=== PATIENT | male | born 1940 | race Caucasian/White ===

== ENCOUNTER 2017-10-27 04:50 | Inpatient (IN) | payer OTHER ==
--- NOTE | 2017-10-27 05:11 | PDOC ---
History of Present Illness - History of Present Illness Initial Comments: 10/27/17 05:10 Mr. Bains is a 77 you male w/ pmh of dementia, GERD, HTN, HLD, afib, hypothyroidism, PH, DMII, known UTI on day 12 of 31 day course of macrobid who presents for evaluation of fever to 102.8 despite tylenol 650 and brown/margaret appearing urine. Patient reportedly at baseline per NH staff however concern for sepsis prompted transfer to ED. <Joaquin Del Real - Last Filed: 10/27/17 07:48> <Graham Ryder - Last Filed: 10/27/17 08:10> - General Stated Complaint: FEVER Time Seen by Provider: 10/27/17 04:52 Past History <Joaquin Del Real - Last Filed: 10/27/17 07:48> <Graham Ryder - Last Filed: 10/27/17 08:10> - Past Medical History Allergies/Adverse Reactions: Allergies Allergy/AdvReac Type Severity Reaction Status Date / Time No Known Allergies Allergy Verified 10/27/17 06:02 Review of Systems - Review of Systems Comments:: 10/27/17 05:16 GENERAL/CONSTITUTIONAL: +Fever x1 day. No weakness. HEAD, EYES, EARS, NOSE AND THROAT: No change in vision. No ear pain or discharge. No sore throat. CARDIOVASCULAR: No chest pain or shortness of breath RESPIRATORY: No cough, wheezing, or hemoptysis. GASTROINTESTINAL: No nausea, vomiting, diarrhea or constipation. GENITOURINARY: +Urinary changes as described. MUSCULOSKELETAL: No joint or muscle swelling or pain. No neck or back pain. SKIN: No rash NEUROLOGIC: No headache, vertigo, loss of consciousness, or change in strength/ sensation. ENDOCRINE: No increased thirst. No abnormal weight change HEMATOLOGIC/LYMPHATIC: No anemia, easy bleeding, or history of blood clots. ALLERGIC/IMMUNOLOGIC: No hives or skin allergy. <Joaquin Del Real - Last Filed: 10/27/17 07:48> *Physical Exam - Physical Exam Comments: 10/27/17 05:19 GENERAL: Awake, alert, and oriented to baseline, in no acute distress HEAD: No signs of trauma, normocephalic, atraumatic EYES: PERRLA, EOMI, sclera anicteric, conjunctiva clear ENT: Auricles normal inspection, hearing grossly normal, nares patent, oropharynx clear without exudates. Moist mucosa NECK: Normal ROM, supple, no lymphadenopathy, JVD, or masses LUNGS: No distress, speaks without difficulty, clear to auscultation bilaterally HEART: +Tachycardic, afib rhythm noted. ABDOMEN: Soft, nontender, normoactive bowel sounds. No guarding, no rebound. No masses EXTREMITIES: Normal inspection, Normal range of motion, no edema. No clubbing or cyanosis. NEUROLOGICAL: +Unable to assess. SKIN: +Hot, Dry, normal turgor, no rashes or lesions noted. : +Brown/red urine appreciated in catheter bag. <Joaquin Del Real - Last Filed: 10/27/17 07:48> - Vital Signs Last Vital Signs Temp Pulse Resp BP Pulse Ox 97.7 F 102 H 18 79/55 99 10/27/17 04:55 10/27/17 08:02 10/27/17 08:02 10/27/17 08:02 10/27/17 08:02 <Graham Ryder - Last Filed: 10/27/17 08:10> Procedures - Central Line Central Line Lumen: triple Central Line Position: internal jugular (R) Anesthesia: 1% Lidocaine Amount of anesthesia (ccs): 2 Complications: none Post Central Line Insertion: sutured, good blood return <Joaquin Del Real - Last Filed: 10/27/17 07:48> ED Treatment Course - LABORATORY CBC & Chemistry Diagram: 10/27/17 06:31 10/27/17 06:31 - RADIOLOGY Radiology Studies Ordered: Category Date Time Status CHEST X-RAY PORTABLE* [RAD] Stat Radiology 10/27/17 04:53 Ordered <Joaquin Del Real - Last Filed: 10/27/17 07:48> - LABORATORY CBC & Chemistry Diagram: 10/27/17 06:31 10/27/17 06:31 - ADDITIONAL ORDERS Additional order review: Laboratory Results 10/27/17 10/27/17 10/27/17 06:43 06:31 06:31 PT with INR 15.40 H INR 1.36 H PTT (Actin FS) 32.6 VBG pH POC VBG pCO2 POC VBG pO2 Mixed VBG HCO3 Sodium Potassium Chloride Carbon Dioxide Anion Gap BUN Creatinine Creat Clearance w eGFR Random Glucose Lactic Acid 7.1 H* Calcium Total Bilirubin AST ALT Alkaline Phosphatase Creatine Kinase Cancelled Creatine Kinase Index CK-MB (CK-2) Troponin I Cancelled Total Protein Albumin 10/27/17 10/27/17 10/27/17 06:31 05:45 05:45 PT with INR INR PTT (Actin FS) VBG pH POC VBG pCO2 POC VBG pO2 Mixed VBG HCO3 Sodium 138 Potassium 4.1 Chloride 100 Carbon Dioxide 25 Anion Gap 13 BUN 21 H Creatinine 1.7 H Creat Clearance w eGFR 39.38 Random Glucose 163 H Lactic Acid Cancelled Calcium 8.5 Total Bilirubin 0.7 AST 54 H ALT 33 Alkaline Phosphatase 86 Creatine Kinase 157 Creatine Kinase Index 1.0 CK-MB (CK-2) 1.62 Troponin I 0.12 H Cancelled Total Protein 6.0 L Albumin 2.9 L 10/27/17 10/27/17 10/27/17 05:45 05:45 05:45 PT with INR Cancelled INR Cancelled PTT (Actin FS) Cancelled VBG pH 7.40 POC VBG pCO2 40.4 POC VBG pO2 36.5 Mixed VBG HCO3 24.3 Sodium Cancelled Potassium Cancelled Chloride Cancelled Carbon Dioxide Cancelled Anion Gap Cancelled BUN Cancelled Creatinine Cancelled Creat Clearance w eGFR Cancelled Random Glucose Cancelled Lactic Acid Calcium Cancelled Total Bilirubin Cancelled AST Cancelled ALT Cancelled Alkaline Phosphatase Cancelled Creatine Kinase Creatine Kinase Index CK-MB (CK-2) Troponin I Total Protein Cancelled Albumin Cancelled 10/27/17 10/27/17 06:31 05:45 RBC 3.78 L Cancelled MCV 95.8 Cancelled MCHC 33.7 Cancelled RDW 13.7 Cancelled MPV 8.3 Cancelled Neutrophils % No Result Required. Cancelled Lymphocytes % No Result Required. Cancelled Monocytes % Cancelled Eosinophils % Cancelled Basophils % Cancelled - RADIOLOGY Radiology Studies Ordered: Category Date Time Status ABDOMEN & PELVIS CT W/O CONTR [CT] Stat CT Scan 10/27/17 07:57 Ordered - Medications Given in the ED: ED Medications Discontinued Medications Generic Name Dose Route Start Last Admin Trade Name Freq PRN Reason Stop Dose Admin Acetaminophen 1,000 mg 10/27/17 06:50 10/27/17 07:18 Ofirmev Injection - IVPB 10/27/17 06:51 1,000 mg ONCE ONE Administration Vancomycin HCl 1,000 mg/ 250 mls @ 166.667 mls/hr 10/27/17 05:51 10/27/17 06: 15 Dextrose IVPB 10/27/17 07:20 166.667 mls/hr ONCE ONE Administration Protocol Piperacillin Sod/Tazobactam 50 mls @ 100 mls/hr 10/27/17 05:51 10/27/17 06:00 Sod 3.375 gm/ Dextrose IVPB 10/27/17 06:20 100 mls/hr ONCE ONE Administration Protocol Sodium Chloride 1,000 mls @ 1,000 mls/hr 10/27/17 05:52 10/27/17 06:00 Normal Saline - IV 10/27/17 06:51 1,000 mls/hr ASDIR STA Administration Sodium Chloride 1,000 mls @ 1,000 mls/hr 10/27/17 06:25 10/27/17 07:16 Normal Saline - IV 10/27/17 07:24 1,000 mls/hr ASDIR STA Administration <Graham Ryder - Last Filed: 10/27/17 08:10> Medical Decision Making - Medical Decision Making 10/27/17 05:20 Mr. Bains is a 77 yo male w/ pmh as described who presents for evaluation of r/ o sepsis. Sepsis workup started and will dispo accordingly. 10/27/17 06:45 Patient noted to be severely w/ MAP of 61. 2L NS added to workup with vanc/ zosyn given empirically. Patient first set of labs hemolized - redrawn. 10/27/17 07:48 Patient noted to be again hypotensive to MAPs of 61. Central line placed for pressure support. Patient signed out to Dr. Ryder for further care. <Joaquin Del Real - Last Filed: 10/27/17 07:48> *DC/Admit/Observation/Transfer - Discharge Dispostion Decision to Admit order: Yes <Joaquin Del Real - Last Filed: 10/27/17 07:48> - Discharge Dispostion Decision to Admit order: Yes <Graham Ryder - Last Filed: 10/27/17 08:10> Diagnosis at time of Disposition: Septic shock Sepsis Qualifiers: Sepsis type: sepsis due to unspecified organism Qualified Code(s): A41.9 - Sepsis, unspecified organism Hematuria Qualifiers: Hematuria type: gross Qualified Code(s): R31.0 - Gross hematuria - Discharge Dispostion Condition at time of disposition: Critical - Referrals Referrals: Tessa Almanza MD [Primary Care Provider] -
--- NOTE | 2017-10-27 05:17 | PDOC ---
Attending Attestation - HPI HPI: 10/27/17 05:23 The patient is a 77 year old male, with a significant past medical history of dementia, GERD, HTN, HLD, Afib, hypothyroidism, Type II DM, who presents to the emergency department via EMS from [facility] on [address] with, fever. As per halfway, the patient is on day 12 of Macrobid for a UTI. They report a Tmax 102.8 degrees Fahrenheit. They report associated brownish/margaret urine. - Physicial Exam PE: 10/27/17 06:32 GENERAL: Awake, alert, and oriented to baseline, in no acute distress HEAD: No signs of trauma, normocephalic, atraumatic EYES: PERRLA, EOMI, sclera anicteric, conjunctiva clear ENT: Auricles normal inspection, hearing grossly normal, nares patent, oropharynx clear without exudates. Moist mucosa NECK: Normal ROM, supple, no lymphadenopathy, JVD, or masses LUNGS: No distress, speaks without difficulty, clear to auscultation bilaterally HEART: +Tachycardic, afib rhythm noted. ABDOMEN: Soft, nontender, normoactive bowel sounds. No guarding, no rebound. No masses EXTREMITIES: Normal inspection, Normal range of motion, no edema. No clubbing or cyanosis. NEUROLOGICAL: +Unable to assess. SKIN: +Hot, Dry, normal turgor, no rashes or lesions noted. : +Brown/red urine appreciated in catheter bag. <Edward Griffin - Last Filed: 10/27/17 06:51> - Resident Resident Name: Joaquin Del Real - ED Attending Attestation I have performed the following: I have examined & evaluated the patient, The case was reviewed & discussed with the resident, I agree w/resident's findings & plan, Exceptions are as noted - Medical Decision Making 10/27/17 19:40 Pt was admitted for further evaluation and care. <Nitin Guajardo - Last Filed: 10/27/17 19:41> Attestations - Attestations 10/27/17 05:23 Documentation prepared by Edward Griffin, acting as chief medical director for Nitin Guajardo DO. <Edward Griffin - Last Filed: 10/27/17 06:51>
[2017-10-27] MEDS ORDERED: VANCOMYCIN 1,000 MG in DEXTROSE 5%-WATER - 250 ML IVPB ONE (05:51)
[2017-10-27] MEDS ORDERED: PIPERACILLIN/TAZOB 3.375 GM 3.375 GM in DEXTROSE 5%-WATER - 50 ML IVPB ONE (05:51)
[2017-10-27] MEDS ORDERED: SODIUM CHLORIDE 1,000 ML IV STA ×3 (05:52→08:30)
[2017-10-27] MEDS ORDERED: VANCOMYCIN 1 GRAM (PRE-DOCKED) 1,000 MG/250 ML BAG IVPB ONE (06:03)
[2017-10-27] MEDS ORDERED: PIPERACILLIN/TAZOB 3.375 GM 3.375 GM/50 ML BAG IVPB ONE (06:03)
[2017-10-27 06:11] LABS: VENOUS PC02 40.4 mmHg (38-52); VENOUS PH 7.4 (7.32-7.42); VENOUS PO2 36.5 mmHg (28-48)
[2017-10-27 06:40] LABS: HEMATOCRIT 36.2 % (35.4-49); HEMOGLOBIN 12.2 GM/dL (11.7-16.9); MCH 32.3 pg (25.7-33.7); MCHC 33.7 g/dl (32.0-35.9); MEAN CELL VOLUME 95.8 fl (80-96); MEAN PLT VOLUME 8.3 fl (7.5-11.1); PLATELET COUNT 185 K/MM3 (134-434); RBC 3.78 M/mm3 (4.00-5.60); RDW 13.7 % (11.9-15.9); WHITE BLOOD COUNT 10.7 K/mm3 (4.0-10.0)
[2017-10-27] MEDS ORDERED: ACETAMINOPHEN 1000 MG/100 ML VIAL (NON FORMULARY) IVPB ONE (06:50)
[2017-10-27 07:06] LABS: ALBUMIN 2.9 g/dl (3.4-5.0); ANION GAP 13 MMOL/L (8-16); BLOOD UREA NITROGEN 21 mg/dL (7-18); CALCIUM 8.5 mg/dL (8.5-10.1); CHLORIDE 100 mmol/L (98-107); CO2 25 mmol/L (21-32); SODIUM 138 mmol/L (136-145)
[2017-10-27 07:13] LABS: INR 1.36 (0.83-1.09); PROTHROMBIN TIME (PATIENT) 15.4 SEC (9.7-13.0)
[2017-10-27 07:14] LABS: ALK PHOS 86 U/L (45-117); BILIRUBIN,TOTAL 0.7 mg/dL (0.2-1.0); CREATININE 1.7 mg/dL (0.7-1.3); GLUCOSE,RANDOM 163 mg/dL (74-106); POTASSIUM 4.1 mmol/L (3.5-5.1); SGPT/ALT 33 U/L (12-78)
[2017-10-27 07:15] LABS: ACTIVATED PTT 32.6 SECONDS (25.2-36.5)
[2017-10-27 07:16] LABS: SGOT/AST 54 U/L (15-37)
[2017-10-27] MEDS ORDERED: ACETAMINOPHEN INJECTION 100 ML IVPB ONE (07:16)
--- NOTE | 2017-10-27 07:19 | PDOC ---
*Physical Exam - Vital Signs Last Vital Signs Temp Pulse Resp BP Pulse Ox 97.7 F 58 L 20 102/54 95 10/27/17 04:55 10/27/17 04:55 10/27/17 04:55 10/27/17 04:55 10/27/17 04:55 - Physical Exam Comments: 10/27/17 07:19 Patient hypotensive with blood pressure of 73 systolic despite aggressive fluid resuscitation. We'll continue with IV fluids. Will place right IJ central line for pressor infusion. Will initiate Levophed. Will admit to the ICU. 10/27/17 07:58 Case discussed with ICU resident, Dr. East. Patient accepted for admission. Given hypotension, gross hematuria and elevated lactic acid, will obtain noncontrast CT of abdomen to rule out renal infarction. Patient will not be able to tolerate by mouth contrast due to lethargy and decreased mentation. 10/27/17 08:08 Chest x-ray reviewed. Tip of the the right IJ catheter is at the junction of SVC in the right atrium. No evidence of pneumothorax. RN instructed to use the ER central line catheter for infusion of Levophed. 10/27/17 08:29 Third liter of normal saline administered. No significant urinary output detected. Levophed drip initiated. We'll continue with IV fluid resuscitation. <Graham Ryder - Last Filed: 10/27/17 08:29> - Vital Signs Last Vital Signs Temp Pulse Resp BP Pulse Ox 97.7 F 112 H 17 72/35 96 10/27/17 04:55 10/27/17 06:30 10/27/17 06:30 10/27/17 06:30 10/27/17 07:20 <Daniela Lee - Last Filed: 10/27/17 10:07> ED Treatment Course - LABORATORY CBC & Chemistry Diagram: 10/27/17 06:31 10/27/17 06:31 - ADDITIONAL ORDERS Additional order review: Laboratory Results 10/27/17 10/27/17 10/27/17 06:31 06:31 05:45 PT with INR INR PTT (Actin FS) VBG pH POC VBG pCO2 POC VBG pO2 Mixed VBG HCO3 Sodium 138 Potassium 4.1 Chloride 100 Carbon Dioxide 25 Anion Gap 13 BUN 21 H Creatinine 1.7 H Creat Clearance w eGFR 39.38 Random Glucose 163 H Lactic Acid Calcium 8.5 Total Bilirubin 0.7 AST 54 H ALT 33 Alkaline Phosphatase 86 Creatine Kinase Cancelled Troponin I Cancelled 0.12 H Cancelled Total Protein 6.0 L Albumin 2.9 L 10/27/17 10/27/17 10/27/17 05:45 05:45 05:45 PT with INR INR PTT (Actin FS) VBG pH 7.40 POC VBG pCO2 40.4 POC VBG pO2 36.5 Mixed VBG HCO3 24.3 Sodium Cancelled Potassium Cancelled Chloride Cancelled Carbon Dioxide Cancelled Anion Gap Cancelled BUN Cancelled Creatinine Cancelled Creat Clearance w eGFR Cancelled Random Glucose Cancelled Lactic Acid Cancelled Calcium Cancelled Total Bilirubin Cancelled AST Cancelled ALT Cancelled Alkaline Phosphatase Cancelled Creatine Kinase Troponin I Total Protein Cancelled Albumin Cancelled 10/27/17 05:45 PT with INR Cancelled INR Cancelled PTT (Actin FS) Cancelled VBG pH POC VBG pCO2 POC VBG pO2 Mixed VBG HCO3 Sodium Potassium Chloride Carbon Dioxide Anion Gap BUN Creatinine Creat Clearance w eGFR Random Glucose Lactic Acid Calcium Total Bilirubin AST ALT Alkaline Phosphatase Creatine Kinase Troponin I Total Protein Albumin 10/27/17 10/27/17 06:31 05:45 RBC 3.78 L Cancelled MCV 95.8 Cancelled MCHC 33.7 Cancelled RDW 13.7 Cancelled MPV 8.3 Cancelled Neutrophils % No Result Required. Cancelled Lymphocytes % No Result Required. Cancelled Monocytes % Cancelled Eosinophils % Cancelled Basophils % Cancelled - Medications Given in the ED: ED Medications Discontinued Medications Generic Name Dose Route Start Last Admin Trade Name Freq PRN Reason Stop Dose Admin Acetaminophen 1,000 mg 10/27/17 06:50 10/27/17 07:18 Ofirmev Injection - IVPB 10/27/17 06:51 1,000 mg ONCE ONE Administration Piperacillin Sod/Tazobactam 50 mls @ 100 mls/hr 10/27/17 05:51 10/27/17 06:00 Sod 3.375 gm/ Dextrose IVPB 10/27/17 06:20 100 mls/hr ONCE ONE Administration Protocol Sodium Chloride 1,000 mls @ 1,000 mls/hr 10/27/17 05:52 10/27/17 06:00 Normal Saline - IV 10/27/17 06:51 1,000 mls/hr ASDIR STA Administration <Britni,Graham - Last Filed: 10/27/17 08:29> - LABORATORY CBC & Chemistry Diagram: 10/27/17 06:31 10/27/17 06:31 - ADDITIONAL ORDERS Additional order review: Laboratory Results 10/27/17 10/27/17 10/27/17 06:31 06:31 06:31 PT with INR 15.40 H INR 1.36 H PTT (Actin FS) 32.6 VBG pH POC VBG pCO2 POC VBG pO2 Mixed VBG HCO3 Sodium 138 Potassium 4.1 Chloride 100 Carbon Dioxide 25 Anion Gap 13 BUN 21 H Creatinine 1.7 H Creat Clearance w eGFR 39.38 Random Glucose 163 H Lactic Acid Calcium 8.5 Total Bilirubin 0.7 AST 54 H ALT 33 Alkaline Phosphatase 86 Creatine Kinase Cancelled Troponin I Cancelled 0.12 H Total Protein 6.0 L Albumin 2.9 L 10/27/17 10/27/17 10/27/17 05:45 05:45 05:45 PT with INR INR PTT (Actin FS) VBG pH POC VBG pCO2 POC VBG pO2 Mixed VBG HCO3 Sodium Cancelled Potassium Cancelled Chloride Cancelled Carbon Dioxide Cancelled Anion Gap Cancelled BUN Cancelled Creatinine Cancelled Creat Clearance w eGFR Cancelled Random Glucose Cancelled Lactic Acid Cancelled Calcium Cancelled Total Bilirubin Cancelled AST Cancelled ALT Cancelled Alkaline Phosphatase Cancelled Creatine Kinase Troponin I Cancelled Total Protein Cancelled Albumin Cancelled 10/27/17 10/27/17 05:45 05:45 PT with INR Cancelled INR Cancelled PTT (Actin FS) Cancelled VBG pH 7.40 POC VBG pCO2 40.4 POC VBG pO2 36.5 Mixed VBG HCO3 24.3 Sodium Potassium Chloride Carbon Dioxide Anion Gap BUN Creatinine Creat Clearance w eGFR Random Glucose Lactic Acid Calcium Total Bilirubin AST ALT Alkaline Phosphatase Creatine Kinase Troponin I Total Protein Albumin 10/27/17 10/27/17 06:31 05:45 RBC 3.78 L Cancelled MCV 95.8 Cancelled MCHC 33.7 Cancelled RDW 13.7 Cancelled MPV 8.3 Cancelled Neutrophils % No Result Required. Cancelled Lymphocytes % No Result Required. Cancelled Monocytes % Cancelled Eosinophils % Cancelled Basophils % Cancelled - Medications Given in the ED: ED Medications Discontinued Medications Generic Name Dose Route Start Last Admin Trade Name Freq PRN Reason Stop Dose Admin Acetaminophen 1,000 mg 10/27/17 06:50 10/27/17 07:18 Ofirmev Injection - IVPB 10/27/17 06:51 1,000 mg ONCE ONE Administration Vancomycin HCl 1,000 mg/ 250 mls @ 166.667 mls/hr 10/27/17 05:51 10/27/17 06: 15 Dextrose IVPB 10/27/17 07:20 166.667 mls/hr ONCE ONE Administration Protocol Piperacillin Sod/Tazobactam 50 mls @ 100 mls/hr 10/27/17 05:51 10/27/17 06:00 Sod 3.375 gm/ Dextrose IVPB 10/27/17 06:20 100 mls/hr ONCE ONE Administration Protocol Sodium Chloride 1,000 mls @ 1,000 mls/hr 10/27/17 05:52 10/27/17 06:00 Normal Saline - IV 10/27/17 06:51 1,000 mls/hr ASDIR STA Administration Sodium Chloride 1,000 mls @ 1,000 mls/hr 10/27/17 06:25 10/27/17 07:16 Normal Saline - IV 10/27/17 07:24 1,000 mls/hr ASDIR STA Administration <Daniela Lee - Last Filed: 10/27/17 10:07> Medical Decision Making - Medical Decision Making 10/27/17 07:40 Dr. Almanza was paged and notified via phone service. Second call was placed at 07 :59. Third page was placed at 08:29. Hospitalist was messaged at 8:49 for admission. Admitting advised us that they will try to reach out to Dr. Almanza themselves. We were informed at 9:[address] Peña admits for Dr. Almanza. 10/27/17 09:14 Dr. Peña was paged and notified via phone service. 10/27/17 09:20 Dr. Almanza returned our call and states that the patient should be admitted under the Hospitalist service since the patient is a Resident service patient and not an office patient. 10/27/17 10:06 Abdomen/Pelvis CT was reviewed by Dr. Ryder and over-read by Radiology. Impression: There are atelectatic changes at both lung bases with trace pleural effusions. The heart size is enlarged. There is a 1 cm calcification within the the upper pole of the right kidney consistent with a nonobstructing calculus. There is no evidence of hydronephrosis or obstructive uropathy. There is a left renal cyst measuring 4.7 x 4.6 x 3.8 cm. No solid renal masses could be identified on this limited noncontrast examination. The urinary bladder is moderately thickened. There are calcifications within the bladder suspicious for bladder calculi. Air is noted within the bladder which may be related to recent instrumentation. There is a Chavez catheter present, however, its distal tip is within the prostatic urethra. Clinical correlation as to repositioning of the catheter is now recommended. The liver, spleen, pancreas and adrenal glands demonstrate no gross abnormalities on this limited noncontrast examination. There is no definite evidence of intra- abdominal or retroperitoneal lymphadenopathy or fluid collections. There is no evidence of pneumoperitoneum, bowel obstruction or intra-abdominal abscess. There is no CT evidence of acute appendicitis or diverticulitis. Examination of the pelvis demonstrates no evidence of pelvic masses, fluid collections or lymphadenopathy. There is a large amount of retained fecal material within the rectum consistent with fecal impaction. Air is identified within the right common femoral vein. Has the patient undergone any attempts at cannulation of the femoral vein? Clinical correlation is recommended. There is no evidence of acute bony abnormalities. Extensive degenerative arthritic changes of the lumbosacral spine are identified. IMPRESSION: 1. Right nephrolithiasis with no evidence of hydronephrosis or obstructive uropathy. 2. Thick-walled urinary bladder containing calculi. Air is also noted within the bladder that may be the result of recent instrumentation. 3. Chavez catheter within prostatic urethra. Repositioning recommended. 4. Air within the right common femoral vein of uncertain etiology. 5. Fecal impaction. <Daniela Lee - Last Filed: 10/27/17 10:07> *DC/Admit/Observation/Transfer <Graham Ryder - Last Filed: 10/27/17 08:29> <Daniela Lee - Last Filed: 10/27/17 10:07> Diagnosis at time of Disposition: Septic shock Sepsis Qualifiers: Sepsis type: sepsis due to unspecified organism Qualified Code(s): A41.9 - Sepsis, unspecified organism Hematuria Qualifiers: Hematuria type: gross Qualified Code(s): R31.0 - Gross hematuria - Discharge Dispostion Condition at time of disposition: Critical
[2017-10-27] MEDS: NOREPINEPHRINE BITARTRATE 8,000 MCG in DEXTROSE 5%-WATER - 492 ML IV SCH ×2 (08:15→22:00)
[2017-10-27 08:44] LABS: URINE APPEARANCE SLCLOUDY; URINE BILIRUBIN NEGATIVE (<2.0 mg/dL); URINE COLOR RED; URINE GLUCOSE (UA) NEGATIVE (NEGATIVE); URINE KETONE NEGATIVE (NEGATIVE); URINE LEUK ESTERASE NEGATIVE (NEGATIVE); URINE NITRITE NEGATIVE (NEGATIVE); URINE UROBILINOGEN NEGATIVE mg/dL (0.2-1.0)
[2017-10-27] MEDS: SODIUM CHLORIDE 1,000 ML IV SCH (08:44)
[2017-10-27 09:02] LABS: URINE PROTEIN 2+ (NEGATIVE)
[2017-10-27 09:03] LABS: YEAST RARE
--- NOTE | 2017-10-27 09:19 | HP ---
CHIEF COMPLAINT: PCP: HISTORY OF PRESENT ILLNESS: ER course was notable for: (1)Fluids Labs (2)Central Line (3)ABx Recent Travel: PAST MEDICAL HISTORY: PAST SURGICAL HISTORY: Social History: Smoking: Alcohol: Drugs: Family History: Allergies No Known Allergies Allergy (Verified 10/27/17 06:02) HOME MEDICATIONS: Home Medications Medication Instructions Recorded Atenolol [Tenormin -] 100 mg PO DAILY 10/27/17 Digoxin [Lanoxin -] 0.125 mg PO DAILY 10/27/17 Docusate Sodium [Colace] 300 mg PO HS 10/27/17 Hydrochlorothiazide 12.5 mg PO DAILY 10/27/17 Levothyroxine [Synthroid -] 175 mcg PO DAILY 10/27/17 Metformin HCl [Glucophage] 500 mg PO BID 10/27/17 Nitrofurantoin Macrocrystal 100 mg PO DAILY 10/27/17 [Nitrofurantoin] Nystatin Cream [Mycostatin Cream -] 1 applic TP BID 10/27/17 Ranitidine [Zantac -] 150 mg PO DAILY 10/27/17 Sennosides [Senna] 2 tab PO DAILY 10/27/17 Simvastatin 10 mg PO HS 10/27/17 Tamsulosin HCl [Flomax] 0.4 mg PO DAILY 10/27/17 REVIEW OF SYSTEMS CONSTITUTIONAL: Absent: fever, chills, diaphoresis, generalized weakness, malaise, loss of appetite, weight change HEENT: Absent: rhinorrhea, nasal congestion, throat pain, throat swelling, difficulty swallowing, mouth swelling, ear pain, eye pain, visual changes CARDIOVASCULAR: Absent: chest pain, syncope, palpitations, irregular heart rate, lightheadedness , peripheral edema RESPIRATORY: Absent: cough, shortness of breath, dyspnea with exertion, orthopnea, wheezing, stridor, hemoptysis GASTROINTESTINAL: Absent: abdominal pain, abdominal distension, nausea, vomiting, diarrhea, constipation, melena, hematochezia GENITOURINARY: Absent: dysuria, frequency, urgency, hesitancy, hematuria, flank pain, genital pain MUSCULOSKELETAL: Absent: myalgia, arthralgia, joint swelling, back pain, neck pain SKIN: Absent: rash, itching, pallor HEMATOLOGIC/IMMUNOLOGIC: Absent: easy bleeding, easy bruising, lymphadenopathy, frequent infections ENDOCRINE: Absent: unexplained weight gain, unexplained weight loss, heat intolerance, cold intolerance NEUROLOGIC: Absent: headache, focal weakness or paresthesias, dizziness, unsteady gait, seizure, mental status changes, bladder or bowel incontinence PSYCHIATRIC: Absent: anxiety, depression, suicidal or homicidal ideation, hallucinations. PHYSICAL EXAMINATION Vital Signs - 24 hr 10/27/17 10/27/17 10/27/17 04:55 06:30 07:20 Temperature 97.7 F Pulse Rate 58 L Pulse Rate [ 112 H Left Radial] Respiratory 20 17 Rate Blood Pressure 102/54 Blood Pressure 72/35 [Right Arm] O2 Sat by Pulse 95 94 L 96 Oximetry (%) 10/27/17 10/27/17 10/27/17 08:02 08:15 08:36 Temperature 101 F H Pulse Rate 89 Pulse Rate [ 102 H 96 H Left Radial] Respiratory 18 19 Rate Blood Pressure 75/55 Blood Pressure 79/55 85/53 [Right Arm] O2 Sat by Pulse 99 98 Oximetry (%) GENERAL: Awake, alert, and fully oriented, in no acute distress. HEAD: Normal with no signs of trauma. EYES: Pupils equal, round and reactive to light, extraocular movements intact, sclera anicteric, conjunctiva clear. No lid lag. EARS, NOSE, THROAT: Ears normal, nares patent, oropharynx clear without exudates. Moist mucous membranes. NECK: Normal range of motion, supple without lymphadenopathy, JVD, or masses. LUNGS: Breath sounds equal, clear to auscultation bilaterally. No wheezes, and no crackles. No accessory muscle use. HEART: Regular rate and rhythm, normal S1 and S2 without murmur, rub or gallop. ABDOMEN: Soft, nontender, not distended, normoactive bowel sounds, no guarding, no rebound, no masses. No hepatomegaly or splenomegaly. MUSCULOSKELETAL: Normal range of motion at all joints. No bony deformities or tenderness. No CVA tenderness. UPPER EXTREMITIES: 2+ pulses, warm, well-perfused. No cyanosis. No clubbing. No peripheral edema. LOWER EXTREMITIES: 2+ pulses, warm, well-perfused. No calf tenderness. No peripheral edema. NEUROLOGICAL: Cranial nerves II-XII intact. Normal speech. Normal gait. PSYCHIATRIC: Cooperative. Good eye contact. Appropriate mood and affect. SKIN: Warm, dry, normal turgor, no rashes or lesions noted, normal capillary refill. Laboratory Results - last 24 hr 10/27/17 10/27/17 10/27/17 05:45 05:45 05:45 WBC Cancelled Corrected WBC (auto) Cancelled RBC Cancelled Hgb Cancelled Hct Cancelled MCV Cancelled MCH Cancelled MCHC Cancelled RDW Cancelled Plt Count Cancelled MPV Cancelled Absolute Neuts (auto) Cancelled Neutrophils % Cancelled Lymphocytes % Cancelled Monocytes % Cancelled Eosinophils % Cancelled Basophils % Cancelled Nucleated RBC % Cancelled Platelet Estimate Cancelled Platelet Comment Cancelled PT with INR Cancelled INR Cancelled PTT (Actin FS) Cancelled VBG pH 7.40 POC VBG pCO2 40.4 POC VBG pO2 36.5 Mixed VBG HCO3 24.3 Sodium Potassium Chloride Carbon Dioxide Anion Gap BUN Creatinine Creat Clearance w eGFR Random Glucose Lactic Acid Calcium Total Bilirubin AST ALT Alkaline Phosphatase Creatine Kinase Creatine Kinase Index CK-MB (CK-2) Troponin I Total Protein Albumin Urine Color Urine Appearance Urine pH Ur Specific [place] Urine Protein Urine Glucose (UA) Urine Ketones Urine Blood Urine Nitrite Urine Bilirubin Urine Urobilinogen Ur Leukocyte Esterase Urine WBC (Auto) Urine RBC (Auto) Urine Yeast 10/27/17 10/27/17 10/27/17 05:45 05:45 05:45 WBC Corrected WBC (auto) RBC Hgb Hct MCV MCH MCHC RDW Plt Count MPV Absolute Neuts (auto) Neutrophils % Lymphocytes % Monocytes % Eosinophils % Basophils % Nucleated RBC % Platelet Estimate Platelet Comment PT with INR INR PTT (Actin FS) VBG pH POC VBG pCO2 POC VBG pO2 Mixed VBG HCO3 Sodium Cancelled Potassium Cancelled Chloride Cancelled Carbon Dioxide Cancelled Anion Gap Cancelled BUN Cancelled Creatinine Cancelled Creat Clearance w eGFR Cancelled Random Glucose Cancelled Lactic Acid Cancelled Calcium Cancelled Total Bilirubin Cancelled AST Cancelled ALT Cancelled Alkaline Phosphatase Cancelled Creatine Kinase Creatine Kinase Index CK-MB (CK-2) Troponin I Cancelled Total Protein Cancelled Albumin Cancelled Urine Color Urine Appearance Urine pH Ur Specific [place] Urine Protein Urine Glucose (UA) Urine Ketones Urine Blood Urine Nitrite Urine Bilirubin Urine Urobilinogen Ur Leukocyte Esterase Urine WBC (Auto) Urine RBC (Auto) Urine Yeast 10/27/17 10/27/17 10/27/17 06:31 06:31 06:31 WBC 10.7 H Corrected WBC (auto) RBC 3.78 L Hgb 12.2 Hct 36.2 MCV 95.8 MCH 32.3 MCHC 33.7 RDW 13.7 Plt Count 185 MPV 8.3 Absolute Neuts (auto) 10.3 H Neutrophils % No Result Required. Lymphocytes % No Result Required. Monocytes % Eosinophils % Basophils % Nucleated RBC % 0 Platelet Estimate Platelet Comment PT with INR 15.40 H INR 1.36 H PTT (Actin FS) 32.6 VBG pH POC VBG pCO2 POC VBG pO2 Mixed VBG HCO3 Sodium 138 Potassium 4.1 Chloride 100 Carbon Dioxide 25 Anion Gap 13 BUN 21 H Creatinine 1.7 H Creat Clearance w eGFR 39.38 Random Glucose 163 H Lactic Acid Calcium 8.5 Total Bilirubin 0.7 AST 54 H ALT 33 Alkaline Phosphatase 86 Creatine Kinase 157 Creatine Kinase Index 1.0 CK-MB (CK-2) 1.62 Troponin I 0.12 H Total Protein 6.0 L Albumin 2.9 L Urine Color Urine Appearance Urine pH Ur Specific [place] Urine Protein Urine Glucose (UA) Urine Ketones Urine Blood Urine Nitrite Urine Bilirubin Urine Urobilinogen Ur Leukocyte Esterase Urine WBC (Auto) Urine RBC (Auto) Urine Yeast 10/27/17 10/27/17 10/27/17 06:31 06:43 07:59 WBC Corrected WBC (auto) RBC Hgb Hct MCV MCH MCHC RDW Plt Count MPV Absolute Neuts (auto) Neutrophils % Lymphocytes % Monocytes % Eosinophils % Basophils % Nucleated RBC % Platelet Estimate Platelet Comment PT with INR INR PTT (Actin FS) VBG pH POC VBG pCO2 POC VBG pO2 Mixed VBG HCO3 Sodium Potassium Chloride Carbon Dioxide Anion Gap BUN Creatinine Creat Clearance w eGFR Random Glucose Lactic Acid 7.1 H* Calcium Total Bilirubin AST ALT Alkaline Phosphatase Creatine Kinase Cancelled Creatine Kinase Index CK-MB (CK-2) Troponin I Cancelled Total Protein Albumin Urine Color Red Urine Appearance Slcloudy Urine pH 8.0 Ur Specific [place] 1.017 Urine Protein 2+ H Urine Glucose (UA) Negative Urine Ketones Negative Urine Blood 3+ H Urine Nitrite Negative Urine Bilirubin Negative Urine Urobilinogen Negative Ur Leukocyte Esterase Negative Urine WBC (Auto) None Urine RBC (Auto) 2043 Urine Yeast Rare 10/27/17 08:12 WBC Corrected WBC (auto) RBC Hgb Hct MCV MCH MCHC RDW Plt Count MPV Absolute Neuts (auto) Neutrophils % Lymphocytes % Monocytes % Eosinophils % Basophils % Nucleated RBC % Platelet Estimate Platelet Comment PT with INR INR PTT (Actin FS) VBG pH POC VBG pCO2 POC VBG pO2 Mixed VBG HCO3 Sodium Potassium Chloride Carbon Dioxide Anion Gap BUN Creatinine Creat Clearance w eGFR Random Glucose Lactic Acid 5.6 H* Calcium Total Bilirubin AST ALT Alkaline Phosphatase Creatine Kinase Creatine Kinase Index CK-MB (CK-2) Troponin I Total Protein Albumin Urine Color Urine Appearance Urine pH Ur Specific [place] Urine Protein Urine Glucose (UA) Urine Ketones Urine Blood Urine Nitrite Urine Bilirubin Urine Urobilinogen Ur Leukocyte Esterase Urine WBC (Auto) Urine RBC (Auto) Urine Yeast ASSESSMENT/PLAN: Hospitalist Screening - Colonoscopy Questionnaire Colonoscopy Questionnaire: Colonoscopy Questionnaire
[2017-10-27] MEDS ORDERED: VASOPRESSIN 20 UNITS/ML VIAL IV ONE ×2 (09:44→20:02)
[2017-10-27] MEDS ORDERED: LEVOTHYROXINE SODIUM 100 MCG VIAL IVPUSH ONE (10:00)
[2017-10-27] MEDS: PANTOPRAZOLE SODIUM 40 MG VIAL IVPUSH SCH (10:00)
[2017-10-27] MEDS: VASOPRESSIN 50 UNITS in SODIUM CHLORIDE 97.5 ML IVPB SCH (10:00)
[2017-10-27] MEDS ORDERED: LEVOTHYROXINE NA 175 MCG TABLET PO SCH (10:00)
[2017-10-27] MEDS: MUPIROCIN 2% TOPICAL OINTMENT FOR DECOLONIZATION NS SCH ×2 (10:00→21:35)
--- NOTE | 2017-10-27 10:24 | HP ---
CHIEF COMPLAINT: Fever and Hypotension reported by [facility] staff PCP: Dr. 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 According to [facility] staff he is on day 02/28 of Macrobid for frequent UTI's. In the ED patient was found to have gross hematuria from the sarah. Patient is poor historian and most information obtained from [facility] records. ER course was notable for: (1) Septic shock with hypotension, fever, tachycardia (2) Vancomycin and Zosyn (3) Recent Travel: PAST MEDICAL HISTORY: As per HPI PAST SURGICAL HISTORY: Unable to obtain Social History: Unable to obtain Family History: Unable to obtain Allergies: No Known Allergies Allergy (Verified 10/27/17 06:02) HOME MEDICATIONS: Home Medications Medication Instructions Recorded Atenolol [Tenormin -] 100 mg PO DAILY 10/27/17 Digoxin [Lanoxin -] 0.125 mg PO DAILY 10/27/17 Docusate Sodium [Colace] 300 mg PO HS 10/27/17 Hydrochlorothiazide 12.5 mg PO DAILY 10/27/17 Levothyroxine [Synthroid -] 175 mcg PO DAILY 10/27/17 Metformin HCl [Glucophage] 500 mg PO BID 10/27/17 Nitrofurantoin Macrocrystal 100 mg PO DAILY 10/27/17 [Nitrofurantoin] Nystatin Cream [Mycostatin Cream -] 1 applic TP BID 10/27/17 Ranitidine [Zantac -] 150 mg PO DAILY 10/27/17 Sennosides [Senna] 2 tab PO DAILY 10/27/17 Simvastatin 10 mg PO HS 10/27/17 Tamsulosin HCl [Flomax] 0.4 mg PO DAILY 10/27/17 REVIEW OF SYSTEMS Unable to obtain PHYSICAL EXAMINATION Vital Signs - 24 hr 10/27/17 10/27/17 10/27/17 04:55 06:30 07:20 Temperature 97.7 F Pulse Rate 58 L Pulse Rate [ 112 H Left Radial] Respiratory 20 17 Rate Blood Pressure 102/54 Blood Pressure 72/35 [Right Arm] O2 Sat by Pulse 95 94 L 96 Oximetry (%) 10/27/17 10/27/17 10/27/17 08:02 08:15 08:36 Temperature 101 F H Pulse Rate 89 Pulse Rate [ 102 H 96 H Left Radial] Respiratory 18 19 Rate Blood Pressure 75/55 Blood Pressure 79/55 85/53 [Right Arm] O2 Sat by Pulse 99 98 Oximetry (%) GENERAL: Drowsy, lethargic, Pale, in moderate distress HEAD: Normal with no signs of trauma. EYES: Pupils equal, round and reactive to light, sclera anicteric, conjunctiva clear. No lid lag. EARS, NOSE, THROAT: Unable to assess due to medical condition NECK: Normal range of motion, supple without lymphadenopathy, JVD, or masses. LUNGS: Decreased breath sounds. No accessory muscle use. HEART: Tachycardic with irregularly irregular rhythm. ABDOMEN: Soft, nontender, not distended, normoactive bowel sounds, no guarding, no rebound, no masses. UPPER EXTREMITIES: No peripheral edema. LOWER EXTREMITIES: No peripheral edema. NEUROLOGICAL: unable to assess due to patients medical condition Laboratory Results - last 24 hr CBC, BMP 10/27/17 06:31 10/27/17 06:31 Laboratory Tests 10/27/17 10/27/17 10/27/17 05:45 06:31 06:31 INR 1.36 H PTT (Actin FS) 32.6 Lactic Acid Troponin I 0.12 H Albumin 2.9 L Urine Color Urine Blood Urine Nitrite Ur Leukocyte Esterase Urine WBC (Auto) Urine RBC (Auto) 10/27/17 10/27/17 07:59 08:12 INR PTT (Actin FS) Lactic Acid 5.6 H* Troponin I Albumin Urine Color Red Urine Blood 3+ H Urine Nitrite Negative Ur Leukocyte Esterase Negative Urine WBC (Auto) None Urine RBC (Auto) 2044 IMAGES: Abdominal CT (10/27/17): 1. Right nephrolithiasis with no evidence of hydronephrosis or obstructive uropathy. 2. Thick-walled urinary bladder containing calculi. Air is also noted within the bladder that may be the result of recent instrumentation. 3. Sarah catheter within prostatic urethra. Repositioning recommended. 4. Air within the right common femoral vein of uncertain etiology. 5. Fecal impaction. Chest X-Ray (10/27/17): Large heart. Congestive changes. Right line in place. No pneumothorax. ASSESSMENT/PLAN: Patient is a 77 year old male who presented with fever, hypotension, tachycardia and was found to be in Septic Shock. Patient admitted to ICU for further monitoring and management. Septic Shock Possibly Secondary to UTI -Patient presented with Fever, tachycardia, hypotension despite fluid resuscitation. Has history of obstructive uropathy from BPH with UTI. -U/A shows no nitrite or LE or WBC, however he is currently on day 02/27 of Macrobid prescribed by Urology. -Blood and urine cultures sent -ID recommended Meropenem 500mg Q8H IVPB -Continue to titrate Pressors with NE and vasopressin, maintaining a MAP >65 -Tylenol PRN for fevers -IV NS @100mls/hr and monitor CVP -Repeat Lactic acid Gross Hematuria Possibly secondary to Traumatic Urethral Injury -Patient currently bleeding from sarah site -U/A revealed RBC >2000. -Will need CBI -Urology consult placed JET -Likely secondary to Septic shock. Patient's recent creatinine from [facility] in september was 0.5 -Urine lytes ordered -Continue IV fluids with NS @100mls/hr -Continue to monitor BMP Elevated Troponins -Likely secondary to demand ischemia -First trop 0.12 w/ low CK, repeat second trop -EKG revealed A.fib with RVR Atrial Fibrillation w/RVR -Likely secondary to sepsis -Was taking Xarelto but stopped at [facility] before transfer to hospital -Will hold off on AC due to continuous hematuria -Continue Digoxin -Continue cardiac monitoring HTN -Patient currently hypotensive and will hold Anti-HTN medications HLD -Continue Simvastatin 10mg HS NIDDMII -Last A1C in September was 5.6 according to [facility] records -BGM's and ISS Hypothyroidism -Continue home medication of Levothyroxine 175mcg CAD s/p CABG 2012 -Will hold ASA due to hematuria CVA in 2013 -Hold ASA -Continue Simvastatin 10mg Constipation -Patient at [facility] on senna, and colace. -CT abdomen revealed stool back up but currently having diarrhea. -C.Diff sent Dementia -Currently on no medications BPH -Continue Flomax F/E/N -IV NS @100mls/hr -Electrolytes wnl -NPO Prophylaxis -High risk. SCD's for DVT. -No GI required Disposition -Full code -Patient currently in Septic shock Visit type - Emergency Visit Emergency Visit: Yes ED Registration Date: 10/27/17 Care time: The patient presented to the Emergency Department on the above date and was hospitalized for further evaluation of their emergent condition. - New Patient This patient is new to me today: Yes Date on this admission: 10/27/17 - Critical Care Critical Care patient: Yes Total Critical Care Time (in minutes): 45 Critical Care Statement: The care of this patient involved high complexity decision making to prevent further life threatening deterioration of the patient 's condition and/or to evaluate & treat vital organ system(s) failure or risk of failure. Hospitalist Screening - Colonoscopy Questionnaire Colonoscopy Questionnaire: Colonoscopy Questionnaire - Patient: 50 - 75 years old and never had a screening colonoscopy: Unknown History of colon or rectal polyps, or CA: No History of IBD, Crohn's disease or UC: No History of abdominal radiation therapy as a child: No - Relative: 1 with colon or rectal CA, or polyps at age 60 or younger: Unknown Colon or rectal CA diagnosed at age 45 or younger: Unknown Multiple relatives with colon or rectal CA: Unknown - Outcome: Screening Result: Negative Screen
[2017-10-27] MEDS: DIGOXIN 0.125 MG TABLET (FP) PO SCH (10:30)
--- NOTE | 2017-10-27 10:37 | PN ---
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 (short form) - Note 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: ID Consult dictated Sepsis/ septic shock UTI/ Possible sepsis secondary to UTI Gross hematuria Lactic acidosis Azotema Hx valve replacement Pending sepsis workup empiric meropenem/ vancomycin, adjusted for azotemia Pressors ICU monitoring Critical care time 35min
--- NOTE | 2017-10-27 10:46 | EKG ---
Test Reason : Blood Pressure : / mmHG Vent. Rate : 133 BPM Atrial Rate : 156 BPM P-R Int : 000 ms QRS Dur : 090 ms QT Int : 272 ms P-R-T Axes : 000 016 074 degrees QTc Int : 404 ms ATRIAL FIBRILLATION WITH RAPID VENTRICULAR RESPONSE NONSPECIFIC ST ABNORMALITY ABNORMAL ECG NO PREVIOUS ECGS AVAILABLE Confirmed by ELISHA SAINZ MD ([id number]) on 10/27/2017 10:46:06 AM Referred By: Confirmed By:ELISHA SAINZ MD
[2017-10-27] MEDS: MEROPENEM 500 MG in DEXTROSE 5%-WATER 100 ML IVPB SCH ×2 (11:00→18:37)
[2017-10-27 11:17] LABS: PLATELET ESTIMATE ADEQUATE
[2017-10-27 12:22] LABS: BASO % 0.3 % (0-2.0); HEMATOCRIT 29.1 % (35.4-49); HEMOGLOBIN 9.9 GM/dL (11.7-16.9); LYMPH % 1.5 % (8-40); MCHC 34.1 g/dl (32.0-35.9); MEAN CELL VOLUME 105.5 fl (80-96); MEAN PLT VOLUME 8.5 fl (7.5-11.1); MONO % 6.5 % (3.8-10.2); NEUT % 91.7 % (42.8-82.8); PLATELET COUNT 210 K/MM3 (134-434); RBC 2.75 M/mm3 (4.00-5.60); RDW 14.1 % (11.9-15.9); WHITE BLOOD COUNT 20.2 K/mm3 (4.0-10.0)
[2017-10-27 12:51] LABS: MAGNESIUM 1.7 mg/dL (1.8-2.4)
--- NOTE | 2017-10-27 12:57 | PN ---
Teaching Attending Note Name of Resident: Kathrine Boykin ATTENDING PHYSICIAN STATEMENT I saw and evaluated the patient. I reviewed the resident's note and discussed the case with the resident. I agree with the resident's findings and plan as documented. SUBJECTIVE: Pt seen and examined in the ICU. Briefly, 77yo male with h/o HTN, DM, hyperlipidemia, CAD s/p CABG, h/o CVA, atrial fibrillation on anticoagulation, BPH, chronic indwelling sarah, recurrent UTI who was admitted with fevers and hypotension. Given IVF, started on pressors for persistent hypotension. Developed hematuria in the ER, currently in the ICU on levophed and vasopressin gtts. OBJECTIVE: Vital Signs Period Temp Pulse Resp BP Sys/Avelar Pulse Ox Last 24 Hr 97.7 F-101 F 58-112 17-20 72-102/35-55 94-99 Intake & Output 10/24/17 10/25/17 10/26/17 10/27/17 23:59 23:59 23:59 23:59 Intake Total 2250 Output Total 200 Balance 2049 Weight 86.183 kg Gen: mildly tachypneic at rest Heart: RRR Lung: decreased breath sounds at the bases Abd: soft, nontender Ext: no edema CBC, BMP 10/27/17 06:31 Active Medications Chlorhexidine Gluconate (Hibiclens For Decolonization -) 1 applic TP HS [facility] Digoxin (Lanoxin -) 0.125 mg PO DAILY [facility] Heparin Sodium (Porcine) (Heparin -) 5,000 unit SQ TID [facility] Norepinephrine Bitartrate 8, (000 mcg/ Dextrose) 500 mls @ 30 mls/hr IV TITR [facility]; Protocol Last Admin: 10/27/17 08:15 Dose: 8 mcg/min, 30 mls/hr Sodium Chloride (Normal Saline -) 1,000 mls @ 100 mls/hr IV ASDIR [facility] Last Admin: 10/27/17 08:44 Dose: 100 mls/hr Vasopressin 50 units/ Sodium (Chloride) 100 mls @ 4 mls/hr IVPB ASDIR [facility]; Protocol Meropenem 500 mg/ Dextrose 100 mls @ 200 mls/hr IVPB Q8H-IV [facility] Insulin Aspart (Novolog Vial Sliding Scale -) 1 vial SQ ACHS [facility]; Protocol Levothyroxine Sodium (Synthroid -) 175 mcg PO DAILY@0700 [facility] Mupirocin (Bactroban Ointment (For Decolonization) -) 1 applic NS BID [facility] Stop: 11/01/17 09:59 Pantoprazole Sodium (Protonix Iv) 40 mg IVPUSH DAILY [facility] ASSESSMENT AND PLAN: r/o UTI Hematuria Septic Shock Acute Kidney Injury Lactic Acidosis +Troponins likely Demand Ischemia Atrial Fibrillation HTN Hyperlipidemia Hypothyroidism - broad spectrum antibiotics - f/u cultures - IVF resuscitation to keep CVP 8-12 - titrate pressors to maintain MAP >65 - echocardiogram - trend lactate, cardiac enzymes - monitor hematuria - urology eval - hold anticoagulation for hematuria - monitor urine output, creatinine - NPO - DVT/GI prophylaxis - continue ICU monitoring critical care time spent in reviewing chart, evaluating patient and formulating plan 35 min
[2017-10-27 12:58] LABS: PHOSPHOROUS 2.6 mg/dL (2.5-4.9)
--- NOTE | 2017-10-27 13:06 | CONS ---
DATE OF CONSULTATION: DATE OF DICTATION: 10/27/2017 HISTORY: The patient is a 77-[facility]-old [facility] resident who was evaluated for septic shock. History was obtained from the chart as he cannot give a history secondary to his dementia. He was admitted to the hospital on October 27, 2017. At the [facility], he was febrile to 102.8 and noted to have dark urine. He was transferred to [facility] where his course was complicated by hypotension and gross hematuria. He required insertion of a central line and IV fluid resuscitation. He is presently in the intensive care unit on pressors. He is awake and alert, however, confused. He is unable to offer any additional details. He denies any pain. His course in the ICU has been complicated by gross hematuria. He was empirically treated with vancomycin and Zosyn. The patient recently received a course of nitrofurantoin at the [facility] for urinary tract infection. Culture results are not available at this time. PAST MEDICAL HISTORY: Positive for dementia, gastroesophageal reflux, hypertension, hyperlipidemia, atrial fibrillation, hypothyroidism, diabetes mellitus. ALLERGIES: No known allergies. MEDICATIONS: Include norepinephrine, heparin, digoxin, vasopressin, Protonix, Synthroid. SOCIAL HISTORY: He is a [facility] resident. He is dependent in activities of daily living. No active tobacco or alcohol use. SYSTEMS REVIEW: Neurologic: Positive for dementia. Cardiac: Negative chest pain or palpitations. History of valve replacement per chart. Respiratory: Negative cough or sputum production. Gastrointestinal: Negative vomiting or diarrhea. Genitourinary: As per HPI. LABORATORY DATA: White count 10.7, hematocrit 36.2, platelet count 185, BUN 21, creatinine 1.7, INR 1.3, lactic acid 7.1. Urinalysis: No white cells, total bilirubin 0.7, alkaline phosphatase 86, AST 54. Blood and urine cultures are pending. Chest x-ray: No focal infiltrate. PHYSICAL EXAMINATION: General: On examination, he is awake. He is responsive but confused. Vital Signs: Temperature 101, blood pressure 85/53, pulse 96, respirations 19 per minute. HEENT: Sclerae anicteric. Dry mucous membranes. Heart: Sounds S1, S2 with a prosthetic valve murmur. Lungs: Clear. Abdomen: Soft. No tenderness elicited. No suprapubic tenderness. Extremities: Negative for edema. Skin: There is a central venous catheter present in the right subclavian area. Genitourinary: A Chavez catheter is in place with gross hematuria. IMPRESSION: 1. Sepsis/septic shock. 2. Urinary tract infection, possible sepsis secondary to urinary tract infection. 3. Gross hematuria. 4. Lactic acidosis. 5. Azotemia. 6. History of valve replacement. PLAN: We will obtain records from [facility] regarding recent urine culture. Pending sepsis workup empiric antibiotic coverage with Meropenem and vancomycin adjusted for azotemia. Continue pressors. ICU monitoring. Critical care time 35 minutes. Thank you for the kind referral. KAYLA CARRIZALES M.D. [id number]
[2017-10-27 15:23] LABS: PLATELET ESTIMATE ADEQUATE
[2017-10-27] MEDS ORDERED: MAGNESIUM OXIDE 400 MG TABLET (FP) PO ONE ×2 (15:34→18:34)
--- NOTE | 2017-10-27 15:38 | CONSULT ---
Consultation: REQUESTING PROVIDER: CONSULT REQUEST: We have been asked to medically evaluate this patient for septic shock. HISTORY OF PRESENT ILLNESS: Patient is a 77 y/o male with a history of HTN, HLD, DM, afib, and stroke (2014 on AC) who presented from [facility] for fever and hypotension. patient was brought to the ED , a central line was placed and he was started on phenylephrine. Patient had been on his 12th day of Macrobid for treatment of a UTI. Patient reports pain in his lower abdomen, denies fevers or chills. Patient has a slight headache. Patient has no other complaints at this time. Patient A&O x2. REVIEW OF SYSTEMS: CONSTITUTIONAL: Absent: fever, chills, diaphoresis, generalized weakness, malaise, loss of appetite, weight change HEENT: Absent: rhinorrhea, nasal congestion, throat pain, throat swelling, difficulty swallowing, mouth swelling, ear pain, eye pain, visual changes CARDIOVASCULAR: Absent: chest pain, syncope, palpitations, irregular heart rate, lightheadedness , peripheral edema RESPIRATORY: Absent: cough, shortness of breath, dyspnea with exertion, orthopnea, wheezing, stridor, hemoptysis GASTROINTESTINAL:abdominal pain, Absent: abdominal distension, nausea, vomiting, diarrhea, constipation, melena, hematochezia GENITOURINARY: dysuria Absent: frequency, urgency, hesitancy, hematuria, flank pain, genital pain MUSCULOSKELETAL: Absent: myalgia, arthralgia, joint swelling, back pain, neck pain SKIN: Absent: rash, itching, pallor HEMATOLOGIC/IMMUNOLOGIC: Absent: easy bleeding, easy bruising, lymphadenopathy, frequent infections NEUROLOGIC: Absent: headache, focal weakness or paresthesias, dizziness, unsteady gait, seizure, mental status changes, bladder or bowel incontinence PSYCHIATRIC: Absent: anxiety, depression, suicidal or homicidal ideation, hallucinations. PHYSICAL EXAMINATION Vital Signs Temperature 101 F H 10/27/17 08:36 Pulse Rate 96 H 10/27/17 08:36 Respiratory Rate 19 10/27/17 08:36 Blood Pressure 85/53 10/27/17 08:36 O2 Sat by Pulse Oximetry (%) 98 10/27/17 08:36 GENERAL: Awake, alert, left facial dropp HEAD: Normal with no signs of trauma. EYES: Pupils equal, round and reactive to light, extraocular movements intact NECK: central line in R IJ placed on the 10/27 LUNGS: Breath sounds equal, clear to auscultation bilaterally HEART: Regular rate and rhythm, without murmur, rub or gallop. ABDOMEN:soft, tenderness to lower abdominal palpation MUSCULOSKELETAL: L LE 0/5 LUE 3/5 forearm flexion, 0/5 shoulder abduction/ adduction LOWER EXTREMITIES: . No calf tenderness. No peripheral edema. SKIN: Warm, dry, normal turgor, no rashes or lesions noted. CBCD WBC 20.2 K/mm3 (4.0-10.0) H 10/27/17 11:57 RBC 2.75 M/mm3 (4.00-5.60) L 10/27/17 11:57 Hgb 9.9 GM/dL (11.7-16.9) L 10/27/17 11:57 Hct 29.1 % (35.4-49) L D 10/27/17 11:57 MCV 105.5 fl (80-96) H D 10/27/17 11:57 MCHC 34.1 g/dl (32.0-35.9) 10/27/17 11:57 RDW 14.1 % (11.9-15.9) 10/27/17 11:57 Plt Count 210 K/MM3 (134-434) 10/27/17 11:57 MPV 8.5 fl (7.5-11.1) 10/27/17 11:57 CMP Sodium 138 mmol/L (136-145) 10/27/17 06:31 Potassium 4.1 mmol/L (3.5-5.1) 10/27/17 06:31 Chloride 100 mmol/L (98-107) 10/27/17 06:31 Carbon Dioxide 25 mmol/L (21-32) 10/27/17 06:31 Anion Gap 13 MMOL/L (8-16) 10/27/17 06:31 BUN 21 mg/dL (7-18) H 10/27/17 06:31 Creatinine 1.7 mg/dL (0.7-1.3) H 10/27/17 06:31 Creat Clearance w eGFR 39.38 (>60) 10/27/17 06:31 Calcium 8.5 mg/dL (8.5-10.1) 08/29/18 06:31 Total Bilirubin 0.7 mg/dL (0.2-1.0) 10/27/17 06:31 AST 54 U/L (15-37) H 10/27/17 06:31 ALT 33 U/L (12-78) 10/27/17 06:31 Alkaline Phosphatase 86 U/L (45-117) 10/27/17 06:31 Total Protein 6.0 g/dl (6.4-8.2) L 10/27/17 06:31 Albumin 2.9 g/dl (3.4-5.0) L 10/27/17 06:31 Urine Test Results Urine Color Red 10/27/17 07:59 Urine Appearance Slcloudy 10/27/17 07:59 Urine pH 8.0 (5.0-8.0) 10/27/17 07:59 Ur Specific [place] 1.017 (1.001-1.035) 10/27/17 07:59 Urine Protein 2+ (NEGATIVE) H 10/27/17 07:59 Urine Glucose (UA) Negative (NEGATIVE) 10/27/17 07:59 Urine Ketones Negative (NEGATIVE) 10/27/17 07:59 Urine Blood 3+ (NEGATIVE) H 10/27/17 07:59 Urine Nitrite Negative (NEGATIVE) 10/27/17 07:59 Urine Bilirubin Negative (<2.0 mg/dL) 10/27/17 07:59 Ur Leukocyte Esterase Negative (NEGATIVE) 10/27/17 07:59 Active Medications Chlorhexidine Gluconate (Hibiclens For Decolonization -) 1 applic TP HS [facility] Digoxin (Lanoxin -) 0.125 mg PO DAILY [facility] Heparin Sodium (Porcine) (Heparin -) 5,000 unit SQ TID [facility] Norepinephrine Bitartrate 8, (000 mcg/ Dextrose) 500 mls @ 30 mls/hr IV TITR [facility]; Protocol Last Admin: 10/27/17 08:15 Dose: 8 mcg/min, 30 mls/hr Sodium Chloride (Normal Saline -) 1,000 mls @ 100 mls/hr IV ASDIR [facility] Last Admin: 10/27/17 08:44 Dose: 100 mls/hr Vasopressin 50 units/ Sodium (Chloride) 100 mls @ 4 mls/hr IVPB ASDIR [facility]; Protocol Meropenem 500 mg/ Dextrose 100 mls @ 200 mls/hr IVPB Q8H-IV [facility] Insulin Aspart (Novolog Vial Sliding Scale -) 1 vial SQ ACHS [facility]; Protocol Levothyroxine Sodium (Synthroid -) 175 mcg PO DAILY@0700 [facility] Mupirocin (Bactroban Ointment (For Decolonization) -) 1 applic NS BID [facility] Stop: 11/01/17 09:59 Pantoprazole Sodium (Protonix Iv) 40 mg IVPUSH DAILY [facility] ASSESSMENT/PLAN: Patient is a 77 y/o male with a history of HTN, HLD, DM, afib, and stroke (2013 on AC) who presented from [facility] for septic shock. #Cardiac septic shock hypotension - levophed 20 mcg - vasopressin 4 mcg - maintain MAP > 65 - CVP 10 - f/u Echo afib - xarelto held for bleeding from urethra - digoxin .125 mg po daily tropinemia - likely 2/2 to demand ischemia - trend 7.1> 7.5 f/u @ 6 #Renal JET - likely secondary to septic shock - f/u FENa, Urine lytes # traumatic sarah - removed, CBI placed - patient has a chronic sarah - f/u Dr. Ramos #Infectious Disease possible urosepsis - Meropenem 500 mg q 8h - UA negative for esterase and WBC - f/u blood CX, cdiff cx, urine cx - f/u vanc level tomorrow, f/u Dr. Dubon #GI ppx - Pantoprazole 40 mg IV push daily - CT shows constipation, pt currently having diarrhea #Endocrine hypothyroidism - Levothyroxine 175 mcg po daily DM - SS - last A1C 5.6 from September #Hematology anemia - f/u CBC at 6 - hgb 12> 9.9 DVT ppx - SCD's FEN - NS @ 100 - NPO - when ready for feeds nepro - MG repleted Dispo: We will continue to follow the patient. Thank you for this consultative opportunity. Visit type - Emergency Visit Emergency Visit: No - New Patient This patient is new to me today: No - Critical Care Critical Care patient: No
[2017-10-27] MEDS ORDERED: ACETAMINOPHEN 1000 MG/100 ML VIAL (NON FORMULARY) IVPB PRN (16:01)
--- NOTE | 2017-10-27 16:46 | PN ---
Teaching Attending Note Name of Resident: Eric Lambert ATTENDING PHYSICIAN STATEMENT I saw and evaluated the patient. I reviewed the resident's note and discussed the case with the resident. I agree with the resident's findings and plan as documented. SUBJECTIVE: Pt seen and examined in the ICU. Patient is a 77yo male with PMHx of HTN, DM, HLD, CAD s/p CABG, h/o CVA, atrial fibrillation on Ac (Xarelto ) , BPH, chronic indwelling sarah, recurrent UTI who was admitted with fevers and hypotension. Patient was given IVF , due to persistent hypotension, patient was started on Levophed and Vasopressins. While in ED. patient developed hematuria. OBJECTIVE: Vital Signs Temperature 101 F H 10/27/17 08:36 Pulse Rate 96 H 10/27/17 08:36 Respiratory Rate 19 10/27/17 08:36 Blood Pressure 85/53 10/27/17 08:36 O2 Sat by Pulse Oximetry (%) 98 10/27/17 08:36 CBCD WBC 20.2 K/mm3 (4.0-10.0) H 10/27/17 11:57 RBC 2.75 M/mm3 (4.00-5.60) L 10/27/17 11:57 Hgb 9.9 GM/dL (11.7-16.9) L 10/27/17 11:57 Hct 29.1 % (35.4-49) L D 10/27/17 11:57 MCV 105.5 fl (80-96) H D 10/27/17 11:57 MCHC 34.1 g/dl (32.0-35.9) 10/27/17 11:57 RDW 14.1 % (11.9-15.9) 10/27/17 11:57 Plt Count 210 K/MM3 (134-434) 10/27/17 11:57 MPV 8.5 fl (7.5-11.1) 10/27/17 11:57 CMP Sodium 138 mmol/L (136-145) 10/27/17 06:31 Potassium 4.1 mmol/L (3.5-5.1) 10/27/17 06:31 Chloride 100 mmol/L (98-107) 10/27/17 06:31 Carbon Dioxide 25 mmol/L (21-32) 10/27/17 06:31 Anion Gap 13 MMOL/L (8-16) 10/27/17 06:31 BUN 21 mg/dL (7-18) H 10/27/17 06:31 Creatinine 1.7 mg/dL (0.7-1.3) H 10/27/17 06:31 Creat Clearance w eGFR 39.38 (>60) 10/27/17 06:31 Random Glucose 163 mg/dL (74-106) H 10/27/17 06:31 Calcium 8.5 mg/dL (8.5-10.1) 10/27/17 06:31 Total Bilirubin 0.7 mg/dL (0.2-1.0) 10/27/17 06:31 AST 54 U/L (15-37) H 10/27/17 06:31 ALT 33 U/L (12-78) 10/27/17 06:31 Alkaline Phosphatase 86 U/L (45-117) 10/27/17 06:31 Total Protein 6.0 g/dl (6.4-8.2) L 10/27/17 06:31 Albumin 2.9 g/dl (3.4-5.0) L 10/27/17 06:31 CARDIAC ENZYMES Creatine Kinase 157 IU/L (39-308) 10/27/17 06:31 Troponin I 0.19 ng/ml (0.00-0.05) H D 10/27/17 11:57 Current Medications Generic Name Dose Route Start Last Admin Trade Name Freq PRN Reason Stop Dose Admin Acetaminophen 1,000 mg 10/27/17 16:01 Ofirmev Injection - IVPB Q24H PRN FEVER Chlorhexidine Gluconate 1 applic 10/27/17 22:00 Hibiclens For Decolonization - TP HS [facility] Digoxin 0.125 mg 10/27/17 10:00 Lanoxin - PO DAILY [facility] Heparin Sodium (Porcine) 5,000 unit 10/27/17 14:00 Heparin - SQ TID [facility] Norepinephrine Bitartrate 8, 500 mls @ 30 mls/hr 10/27/17 07:30 10/27/17 08: 15 000 mcg/ Dextrose IV 8 mcg/min TITR [facility] 30 mls/hr Administration Protocol 8 MCG/MIN Sodium Chloride 1,000 mls @ 100 mls/hr 10/27/17 08:30 10/27/17 08:44 Normal Saline - IV 100 mls/hr ASDIR [facility] Administration Vasopressin 50 units/ Sodium 100 mls @ 4 mls/hr 10/27/17 10:00 Chloride IVPB ASDIR ON LICENSE OF [facility] Protocol 2 UNITS/HR Meropenem 500 mg/ Dextrose 100 mls @ 200 mls/hr 10/27/17 11:00 IVPB Q8H-IV [facility] Insulin Aspart 1 vial 10/27/17 16:30 Novolog Vial Sliding Scale - SQ ACHS ON [facility] OF [facility] Protocol Levothyroxine Sodium 175 mcg 10/28/17 07:00 Synthroid - PO DAILY@0700 [facility] OF [facility] Mupirocin 1 applic 10/27/17 10:00 Bactroban Ointment (For Decolonization) - NS 11/01/17 09:59 BID ON LICENSE OF [facility] Pantoprazole Sodium 40 mg 10/27/17 10:00 Protonix Iv IVPUSH DAILY ON LICENSE OF [facility] Home Medications Medication Instructions Recorded Atenolol [Tenormin -] 100 mg PO DAILY 10/27/17 Digoxin [Lanoxin -] 0.125 mg PO DAILY 10/27/17 Docusate Sodium [Colace] 300 mg PO HS 10/27/17 Hydrochlorothiazide 12.5 mg PO DAILY 10/27/17 Levothyroxine [Synthroid -] 175 mcg PO DAILY 10/27/17 Metformin HCl [Glucophage] 500 mg PO BID 10/27/17 Nitrofurantoin Macrocrystal 100 mg PO DAILY 10/27/17 [Nitrofurantoin] Nystatin Cream [Mycostatin Cream -] 1 applic TP BID 10/27/17 Ranitidine [Zantac -] 150 mg PO DAILY 10/27/17 Sennosides [Senna] 2 tab PO DAILY 10/27/17 Simvastatin 10 mg PO HS 10/27/17 Tamsulosin HCl [Flomax] 0.4 mg PO DAILY 10/27/17 PE: looks very pale, nice gentleman otherwise alert, awake CVS:Irregularly irregulAR, RATE OF HIGH 90, s1s2 POSITIVE REST OF pe PER RESIDENT'S NOTE Abdominal CT (10/27/17): 1. Right nephrolithiasis with no evidence of hydronephrosis or obstructive uropathy. 2. Thick-walled urinary bladder containing calculi. Air is also noted within the bladder that may be the result of recent instrumentation. 3. Sarah catheter within prostatic urethra. Repositioning recommended. 4. Air within the right common femoral vein of uncertain etiology. 5. Fecal impaction. Chest X-Ray (10/27/17): Large heart. Congestive changes. Right line in place. No pneumothorax. ASSESSMENT AND PLAN: Patient is a 77 y/o male with PMHx of HTN, HLD, DM, afib, and stroke (2013 on AC, Xarelto) who presented from [facility] for fever,hypotension and Hematuria. # Septic Shock Possibly due to UTI on 2 pressors in ICu. Levo and Vasopresins. Titrate to MAP>65 , trend Lactic acid # Gross Hematuria on Xarelto for Afib , 3 way catheter CBI, Urology consult , monitor H/H , type and screen for one unit of PRBC and FFP # JET due to obstructive uropathy , will place him on CBI, # Elevated Troponins most likely due demand ischemia getting echo, and repeat Trops. was elevated. carido consult # Atrial Fibrillation with rate controlled on Digoxin, will hold the Xarelto since the patient is bleeding. # HTN now hypotension hold the BP meds.on pressors now. # HLD on statins continue # NIDDMII sliding scale with coverage # Hypothyroidism continue synthroid if patient is unable to swallow oral meds continue with IV Levoxyl 1/2 of the dose of Oral Levoxyl # CAD s/p CABG 2012: will hold ASA due to hematuria #CVA in 2014: Hold ASA, Continue Simvastatin 10mg #Constipation:Patient at [place] on senna, and colace. # Hx of Dementia: Currently on no medications # BPH:Continue Flomax Prophylaxis:High risk. SCD's for DVT. HOLD aC FOR HAVING HEMATURIA GI Px: PPI
--- NOTE | 2017-10-27 16:47 | ECHO ---
Name: BRESeptember Exam:Adult Echocardiogram Study Date: 10/27/2017 12:36 PM Age: 77 yrs Reason For Study: septic shock r/o CHF Height: 72 in Weight: 190 lb BSA: 2.1 m2 MMode/2D Measurements & Calculations RVDd: 2.7 cm Ao root diam: 3.9 cm IVSd: 0.92 cm LA dimension: 4.3 cm LVIDd: 4.3 cm ACS: 1.8 cm LVIDs: 3.1 cm LVPWd: 1.1 cm IVSs: 1.2 cm LVPWs: 1.3 cm EDV(Teich): 85.2 ml ESV(Teich): 36.5 ml LVOT diam: 1.9 cm Doppler Measurements & Calculations MV E max mario alberto: 108.5 cm/sec Ao V2 max: 174.0 cm/sec MV A max mario alberto: 32.6 cm/sec Ao max P.1 mmHg MV E/A: 3.3 Ao V2 mean: 121.9 cm/sec Ao mean P.7 mmHg Ao V2 VTI: 26.8 cm DALY(I,D): 1.1 cm2 DALY(V,D): 0.98 cm2 LV V1 max P.4 mmHg MR max mario alberto: 420.6 cm/sec LV V1 mean P.79 mmHg MR max P.9 mmHg LV V1 max: 58.5 cm/sec LV V1 mean: 40.0 cm/sec LV V1 VTI: 9.7 cm SV(LVOT): 28.2 ml TR max mario alberto: 201.9 cm/sec TR max P.3 mmHg Med Peak E' Mario Alberto: 2.4 cm/sec Med E/e': 45.0 Lat Peak E' Mario Alberto: 3.6 cm/sec Lat E/e': 30.0 Procedure A two-dimensional transthoracic echocardiogram with color flow and Doppler was performed. Left Ventricle The left ventricular size, thickness and function are normal. The left ventricular ejection fraction is normal. Septal motion is consistent with post-operative state. Right Ventricle The right ventricle is not well visualized. Atria The left atrium is moderately dilated. The right atrium is moderately dilated. Mitral Valve There is moderate mitral valve thickening. There is no mitral valve stenosis. There is moderate yasmin l regurgitation. Tricuspid Valve There is moderate tricuspid valve thickening. Highly mobile mass consistent with a torn chordae is pr esent. A tricuspid valve vegetation cannot be excluded. There is no tricuspid stenosis. There is moderate tric uspid regurgitation. Right ventricular systolic pressure is normal. Aortic Valve There is a bioprosthetic aortic valve. The prosthetic aortic valve appears to open well. The prosthet ic aortic valve is well-seated. The prosthetic aortic valve is not well visualized. No hemodynamically signific ant valvular aortic stenosis. No aortic regurgitation is present. Pulmonic Valve The pulmonic valve is not well visualized. There is no pulmonic valvular stenosis. There is no pulmon ic valvular regurgitation. Great Vessels Mild aortic root dilatation. Interpretation Summary The left ventricular size, thickness and function are normal The left ventricular ejection fraction is normal. Mild aortic root dilatation. There is a bioprosthetic aortic valve. The prosthetic aortic valve appears to open well. The prosthetic aortic valve is well-seated. Septal motion is consistent with post-operative state. There is moderate tricuspid regurgitation. Right ventricular systolic pressure is normal. Highly mobile mass consistent with a torn chordae is present. The prosthetic aortic valve is not well visualized. The left atrium is moderately dilated. The right atrium is moderately dilated. A tricuspid valve vegetation cannot be excluded. The right ventricle is not well visualized. MD Conner Santos 10/27/2017 02:42 PM
[2017-10-27] MEDS: HEPARIN NA (PORCINE) 5,000 UNITS/ML 1ML VIAL SQ SCH ×2 (17:08→21:35)
[2017-10-27 17:59] LABS: HEMATOCRIT 29.6 % (35.4-49); HEMOGLOBIN 9.2 GM/dL (11.7-16.9); MCH 31.5 pg (25.7-33.7); MEAN CELL VOLUME 101.7 fl (80-96); MEAN PLT VOLUME 8.8 fl (7.5-11.1); PLATELET COUNT 196 K/MM3 (134-434); RBC 2.91 M/mm3 (4.00-5.60); RDW 14.6 % (11.9-15.9); WHITE BLOOD COUNT 23.1 K/mm3 (4.0-10.0)
--- NOTE | 2017-10-27 18:07 | PROC ---
Procedure Note Procedure: replaced sarah cath with a 16 emirati. Urine is now clear. previous catheter may have been in the prostatic urethra. maintain sarah for at least five days.
[2017-10-27] MEDS ORDERED: PT OWN MED DRAWER 7, Y5N ONE ×2 (18:33→20:34)
[2017-10-27] MEDS: INSULIN SLIDING SCALE (NOVOLOG) 1 VIAL SQ SCH ×2 (18:36→21:35)
[2017-10-27] MEDS ORDERED: MAGNESIUM SULF 50% (8.12 MEQ/2 ML-1 GM VIAL) IVPB ONE (19:00)
[2017-10-27] MEDS ORDERED: NOREPINEPHRINE BITARTRATE 4 MG/4 ML ML IV ONE (20:01)
[2017-10-27] MEDS: CHLORHEXIDINE GLUCONATE 4% CLEANSER FOR DECOLONIZATION TP SCH (21:36)
[2017-10-27 23:09] LABS: URINE CREATININE 68.9 mg/dL (20-370)
[2017-10-28] MEDS: MEROPENEM 500 MG in DEXTROSE 5%-WATER 100 ML IVPB SCH ×3 (02:36→17:28)
[2017-10-28] MEDS ORDERED: LEVOTHYROXINE NA 100 MCG TABLET (FP) ONE (05:46)
[2017-10-28] MEDS ORDERED: LEVOTHYROXINE NA 75 MCG TABLET (FP) ONE (05:47)
[2017-10-28] MEDS ORDERED: HEMOQUE TEST 1 EACH EACH ONE (05:50)
[2017-10-28 06:28] LABS: BASO % 0.5 % (0-2.0); HEMATOCRIT 27.7 % (35.4-49); HEMOGLOBIN 9.9 GM/dL (11.7-16.9); LYMPH % 2.5 % (8-40); MCH 36.8 pg (25.7-33.7); MCHC 35.5 g/dl (32.0-35.9); MEAN CELL VOLUME 103.6 fl (80-96); MEAN PLT VOLUME 8.9 fl (7.5-11.1); MONO % 6.1 % (3.8-10.2); NEUT % 90.9 % (42.8-82.8); PLATELET COUNT 139 K/MM3 (134-434); RBC 2.68 M/mm3 (4.00-5.60); RDW 15.9 % (11.9-15.9); WHITE BLOOD COUNT 22.6 K/mm3 (4.0-10.0)
[2017-10-28 06:30] LABS: INR 1.5 (0.83-1.09); PROTHROMBIN TIME (PATIENT) 16.9 SEC (9.7-13.0)
[2017-10-28] MEDS: HEPARIN NA (PORCINE) 5,000 UNITS/ML 1ML VIAL SQ SCH ×2 (06:42→14:16)
[2017-10-28] MEDS: LEVOTHYROXINE 100 MCG, LEVOTHYROXINE 75 MCG PO SCH (06:43)
[2017-10-28] MEDS: INSULIN SLIDING SCALE (NOVOLOG) 1 VIAL SQ SCH ×4 (06:43→21:50)
[2017-10-28 06:51] LABS: CHLORIDE 102 mmol/L (98-107); POTASSIUM 3.8 mmol/L (3.5-5.1); SODIUM 136 mmol/L (136-145)
[2017-10-28] MEDS ORDERED: LEVOTHYROXINE NA 175 MCG TABLET PO SCH (07:00)
[2017-10-28] MEDS ORDERED: SODIUM CHLORIDE 250 ML IV STA (07:01)
[2017-10-28 07:02] LABS: ALBUMIN 2.3 g/dl (3.4-5.0); ALK PHOS 63 U/L (45-117); ANION GAP 11 MMOL/L (8-16); BILIRUBIN,TOTAL 0.9 mg/dL (0.2-1.0); BLOOD UREA NITROGEN 26 mg/dL (7-18); CALCIUM 7.4 mg/dL (8.5-10.1); CO2 23 mmol/L (21-32); CREATININE 1.6 mg/dL (0.7-1.3); GLUCOSE,RANDOM 201 mg/dL (74-106); MAGNESIUM 1.7 mg/dL (1.8-2.4); PHOSPHOROUS 2.7 mg/dL (2.5-4.9); SGOT/AST 35 U/L (15-37); SGPT/ALT 26 U/L (12-78); TOT PROT 5.2 g/dl (6.4-8.2)
--- NOTE | 2017-10-28 08:05 | PN ---
Teaching Attending Note Name of Resident: Jean Morocho ATTENDING PHYSICIAN STATEMENT I saw and evaluated the patient. I reviewed the resident's note and discussed the case with the resident. I agree with the resident's findings and plan as documented. SUBJECTIVE: Patient is comfortable ,no fever or chills. patient in icu. OBJECTIVE: Vital Signs Temperature 98 F 10/28/17 02:00 Pulse Rate 87 10/28/17 06:00 Respiratory Rate 22 10/28/17 06:00 Blood Pressure 136/79 10/28/17 06:00 O2 Sat by Pulse Oximetry (%) 98 10/27/17 21:00 CBCD WBC 22.6 K/mm3 (4.0-10.0) H 10/28/17 05:30 RBC 2.68 M/mm3 (4.00-5.60) L 10/28/17 05:30 Hgb 9.9 GM/dL (11.7-16.9) L 10/28/17 05:30 Hct 27.7 % (35.4-49) L 10/28/17 05:30 MCV 103.6 fl (80-96) H 10/28/17 05:30 MCHC 35.5 g/dl (32.0-35.9) 10/28/17 05:30 RDW 15.9 % (11.9-15.9) 10/28/17 05:30 Plt Count 139 K/MM3 (134-434) D 10/28/17 05:30 MPV 8.9 fl (7.5-11.1) 10/28/17 05:30 CMP Sodium 136 mmol/L (136-145) 10/28/17 05:30 Potassium 3.8 mmol/L (3.5-5.1) 10/28/17 05:30 Chloride 102 mmol/L (98-107) 10/28/17 05:30 Carbon Dioxide 23 mmol/L (21-32) 10/28/17 05:30 Anion Gap 11 MMOL/L (8-16) 10/28/17 05:30 BUN 26 mg/dL (7-18) H 10/28/17 05:30 Creatinine 1.6 mg/dL (0.7-1.3) H 10/28/17 05:30 Creat Clearance w eGFR 42.24 (>60) 10/28/17 05:30 Random Glucose 201 mg/dL (74-106) H D 10/28/17 05:30 Calcium 7.4 mg/dL (8.5-10.1) L 10/28/17 05:30 Total Bilirubin 0.9 mg/dL (0.2-1.0) 10/28/17 05:30 AST 35 U/L (15-37) D 10/28/17 05:30 ALT 26 U/L (12-78) D 10/28/17 05:30 Alkaline Phosphatase 63 U/L (45-117) D 10/28/17 05:30 Total Protein 5.2 g/dl (6.4-8.2) L 10/28/17 05:30 Albumin 2.3 g/dl (3.4-5.0) L 10/28/17 05:30 CARDIAC ENZYMES Creatine Kinase 157 IU/L (39-308) 10/27/17 06:31 Troponin I 0.27 ng/ml (0.00-0.05) H D 10/28/17 05:30 Current Medications Generic Name Dose Route Start Last Admin Trade Name Freq PRN Reason Stop Dose Admin Acetaminophen 1,000 mg 10/27/17 16:01 Ofirmev Injection - IVPB Q24H PRN FEVER Chlorhexidine Gluconate 1 applic 10/27/17 22:00 10/27/17 21:36 Hibiclens For Decolonization - TP 1 applic HS [facility] Administration Digoxin 0.125 mg 10/27/17 10:00 10/27/17 10:30 Lanoxin - PO Not Given DAILY [facility] Heparin Sodium (Porcine) 5,000 unit 10/27/17 14:00 10/28/17 06:42 Heparin - SQ 5,000 unit TID [facility] Administration Norepinephrine Bitartrate 8, 500 mls @ 30 mls/hr 10/27/17 07:30 10/27/17 22: 00 000 mcg/ Dextrose IV 17 mcg/min TITR [facility] 63.75 mls/hr Administration Protocol 8 MCG/MIN Sodium Chloride 1,000 mls @ 100 mls/hr 10/27/17 08:30 10/27/17 08:44 Normal Saline - IV 100 mls/hr ASDIR [facility] Administration Vasopressin 50 units/ Sodium 100 mls @ 4 mls/hr 10/27/17 10:00 10/27/17 10:00 Chloride IVPB 2 units/hr ASDIR [facility] 4 mls/hr Administration Protocol 2 UNITS/HR Meropenem 500 mg/ Dextrose 100 mls @ 200 mls/hr 10/27/17 11:00 10/28/17 02:36 IVPB 200 mls/hr Q8H-IV [facility] Administration Insulin Aspart 1 vial 10/27/17 16:30 10/28/17 06:43 Novolog Vial Sliding Scale - SQ 4 units ACHS [facility] Administration Protocol Levothyroxine Sodium 100 mcg/ 175 mcg 10/28/17 07:00 10/28/17 06:43 Levothyroxine Sodium 75 mcg PO 175 mcg DAILY@0700 [facility] Administration Magnesium Oxide 800 mg 10/28/17 07:36 Mag-Ox - PO 10/28/17 07:37 ONCE ONE Mupirocin 1 applic 10/27/17 10:00 10/27/17 21:35 Bactroban Ointment (For Decolonization) - NS 11/01/17 09:59 1 applic BID [facility] Administration Pantoprazole Sodium 40 mg 10/27/17 10:00 10/27/17 10:00 Protonix Iv IVPUSH 40 mg DAILY [facility] Administration Home Medications Medication Instructions Recorded Atenolol [Tenormin -] 100 mg PO DAILY 10/27/17 Digoxin [Lanoxin -] 0.125 mg PO DAILY 10/27/17 Docusate Sodium [Colace] 300 mg PO HS 10/27/17 Hydrochlorothiazide 12.5 mg PO DAILY 10/27/17 Levothyroxine [Synthroid -] 175 mcg PO DAILY 10/27/17 Metformin HCl [Glucophage] 500 mg PO BID 10/27/17 Nitrofurantoin Macrocrystal 100 mg PO DAILY 10/27/17 [Nitrofurantoin] Nystatin Cream [Mycostatin Cream -] 1 applic TP BID 10/27/17 Ranitidine [Zantac -] 150 mg PO DAILY 10/27/17 Sennosides [Senna] 2 tab PO DAILY 10/27/17 Simvastatin 10 mg PO HS 10/27/17 Tamsulosin HCl [Flomax] 0.4 mg PO DAILY 10/27/17 PE: looks very pale, nice gentleman otherwise alert, awake CVS:Irregularly irregulAR, RATE OF HIGH 90, s1s2 POSITIVE REST OF pe PER RESIDENT'S NOTE Abdominal CT (10/27/17):1. Right nephrolithiasis with no evidence of hydronephrosis or obstructive uropathy. 2. Thick-walled urinary bladder containing calculi. Air is also noted within the bladder that may be the result of recent instrumentation. 3. Chavez catheter within prostatic urethra. Repositioning recommended. 4. Air within the right common femoral vein of uncertain etiology. 5. Fecal impaction. Chest X-Ray (10/27/17): Large heart. Congestive changes. Right line in place. No pneumothorax. ASSESSMENT AND PLAN: # s/p Septic Shock due to UTI on 2 pressors in ICu continue , Levo and Vasopresins. Titrate to MAP>65 . # s/p Hematuria improved , patient was placed back on Xarelto for Afib .s/p 3 way catheter CBI, s/p one unit of PRBC and FFP ,h/H stable # JET due to obstructive uropathy , will place him on CBI, # Elevated Troponins most likely due demand ischemia ,echo reviewed, and repeat Trops. was elevated. cardio consult # Atrial Fibrillation with rate controlled on Digoxin, will hold the Xarelto since the patient is bleeding. # HTN continue pressors , hold BP meds. # HLD on statins continue # NIDDMII sliding scale with coverage # Hypothyroidism continue synthroid if patient is unable to swallow oral meds continue with IV Levoxyl 1/2 of the dose of Oral Levoxyl # CAD s/p CABG 2012: will hold ASA due to hematuria #CVA in 2014: Hold ASA, Continue Simvastatin 10mg #Constipation:Patient at [place] on senna, and colace. # Hx of Dementia: Currently on no medications # BPH:Continue Flomax Prophylaxis:High risk. SCD's for DVT. GI Px: PPI
[2017-10-28] MEDS ORDERED: MAGNESIUM OXIDE 400 MG TABLET (FP) PO ONE (08:30)
[2017-10-28] MEDS ORDERED: MAGNESIUM SULF 50% (8.12 MEQ/2 ML-1 GM VIAL) IVPB ONE (09:30)
[2017-10-28] MEDS: PANTOPRAZOLE SODIUM 40 MG VIAL IVPUSH SCH (09:41)
[2017-10-28] MEDS: DIGOXIN 0.125 MG TABLET (FP) PO SCH (09:42)
[2017-10-28] MEDS: MUPIROCIN 2% TOPICAL OINTMENT FOR DECOLONIZATION NS SCH ×2 (09:42→21:51)
[2017-10-28] MEDS: SODIUM CHLORIDE 1,000 ML IV SCH (09:50)
--- NOTE | 2017-10-28 10:43 | CON.CARD ---
Consult Consult Specialty:: cardiology Reason for Consultation:: fever; bacteremia; r/o vegetation; prosthetic AoValve - History of Present Illness Chief Complaint: Pt Alert; no chest pain presently History of Present Illness: Mr. Bains is a 77 you white male w/ pmh of dementia, GERD, HTN, HLD, afib, hypothyroidism, PH, DMII, known UTI on day 12 of 31 day course of macrobid who presents for evaluation of fever to 102.8 despite tylenol 650 and brown/margaret appearing urine. Patient reportedly at baseline per NH staff however concern for sepsis prompted transfer to ED. - History Source History Provided By: Patient, Medical Record Limitations to Obtaining History: No Limitations - Past Medical History Cardio/Vascular: Yes: AFIB, CHF (diastolic), HTN, Hyperlipdemia, Murmur Heme/Onc: Yes: Anemia - Alcohol/Substance Use Hx Alcohol Use: No - Smoking History Smoking history: Never smoked Have you smoked in the past 12 months: No Home Medications - Allergies Allergies/Adverse Reactions: Allergies Allergy/AdvReac Type Severity Reaction Status Date / Time No Known Allergies Allergy Verified 10/27/17 06:02 - Home Medications Home Medications: Ambulatory Orders Atenolol [Tenormin -] 100 mg PO DAILY 10/27/17 Digoxin [Lanoxin -] 0.125 mg PO DAILY 10/27/17 Docusate Sodium [Colace] 300 mg PO HS 10/27/17 Hydrochlorothiazide 12.5 mg PO DAILY 10/27/17 Levothyroxine [Synthroid -] 175 mcg PO DAILY 10/27/17 Metformin HCl [Glucophage] 500 mg PO BID 10/27/17 Nitrofurantoin Macrocrystal [Nitrofurantoin] 100 mg PO DAILY 10/27/17 Nystatin Cream [Mycostatin Cream -] 1 applic TP BID 10/27/17 Ranitidine [Zantac -] 150 mg PO DAILY 10/27/17 Sennosides [Senna] 2 tab PO DAILY 10/27/17 Simvastatin 10 mg PO HS 10/27/17 Tamsulosin HCl [Flomax] 0.4 mg PO DAILY 10/27/17 Family Disease History - Family Disease History Family History: Denies Review of Systems - Review of Systems Constitutional: reports: Weakness Eyes: reports: No Symptoms HENT: reports: No Symptoms Neck: reports: No Symptoms Cardiovascular: reports: Palpitations Respiratory: reports: No Symptoms Gastrointestinal: reports: No Symptoms Genitourinary: reports: Frequency Breasts: reports: No Symptoms Reported Musculoskeletal: reports: Muscle Weakness Neurological: reports: Weakness Psychiatric: reports: Anxiety - Risk Factors Known Risk Factors: Yes: Age, Diabetes Mellitus, Gender, Hypertension, Physical Inactivity, Other (AF; diastolic CHF) Vital Signs: Vital Signs Temperature 98 F 10/28/17 02:00 Pulse Rate 106 H 10/28/17 09:42 Respiratory Rate 18 10/28/17 08:00 Blood Pressure 128/80 10/28/17 08:00 O2 Sat by Pulse Oximetry (%) 98 10/27/17 21:00 Constitutional: Yes: Anxious Eyes: Yes: WNL HENT: Yes: WNL Neck: Yes: WNL Respiratory: Yes: Regular Gastrointestinal: Yes: Soft Renal/: No: Anuria Cardiovascular: Yes: Pulse Irregular JVD: No Carotid Bruit: No PMI: Non-Displaced Heart Sounds: Yes: S1 (varies in intensity), S2 Murmur: Yes: Systolic Murmur, Grade 2 Musculoskeletal: Yes: Muscle Weakness Extremities: Yes: Cool Edema: No Peripheral Pulses WNL: No Peripheral Pulses: 1+ Left Doralis Pedis, 1+ Right Dorsalis Pedis Integumentary: Yes: WNL Neurological: Yes: Alert, Oriented, Weakness Psychiatric: Yes: Alert, Oriented - Other Data Labs, Other Data: CBC, BMP 10/28/17 05:30 10/28/17 05:30 INR, PTT INR 1.50 (0.83-1.09) H 10/28/17 05:30 Troponin, BNP 10/27/17 10/27/17 10/28/17 11:57 17:00 05:30 Troponin I 0.19 H D 0.20 H 0.27 H D Troponin, BNP 10/27/17 10/27/17 10/28/17 11:57 17:00 05:30 Troponin I 0.19 H D 0.20 H 0.27 H D Ejection Fraction %: LVEF > or = 40 % Problem List - Problems (1) History of aortic valve replacement with bioprosthetic valve Assessment/Plan: Will review ECHO (prosthetic Aov; cannot r/o veg on tricuspid valve; likely torn cordae tendonae).. On antibiotics per ID; f/u cultures, clinical status (was febrile; hypotensive-- >presnelty on norepinephrine). Blood cultures negative presently (foloow up today's reading); afebrile. Consider MERLE if intractable bacteremia and/or fever. Keep Mg 2-2.4, K 4-4.5, PO4 2.5-4.9. Reported hx Dementia: Consider cerebral imaging (CT and/or MR); pt gives hx of AF for many years, but apparently not on anticoagulation until relatively recently; r/o cerebral infarcts. Code(s): Z95.3 - PRESENCE OF XENOGENIC HEART VALVE (2) Hematuria Code(s): R31.9 - HEMATURIA, UNSPECIFIED Qualifiers: Hematuria type: gross Qualified Code(s): R31.0 - Gross hematuria (3) Septic shock Assessment/Plan: On antibiotics. Fluids. F/u cultures. No longer on pressors. Code(s): A41.9 - SEPSIS, UNSPECIFIED ORGANISM; R65.21 - SEVERE SEPSIS WITH SEPTIC SHOCK
--- NOTE | 2017-10-28 11:10 | PN ---
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, Physician History of Present Illness: Awake , alert No focal complaint Temps down afebrile BP improved Pressors being tapered WBC remains elevated BC GPCCL, GNR vanco level pending - Current Medication List Current Medications: Active Medications Acetaminophen (Ofirmev Injection -) 1,000 mg IVPB Q24H PRN PRN Reason: FEVER Chlorhexidine Gluconate (Hibiclens For Decolonization -) 1 applic TP HS [facility] Last Admin: 10/27/17 21:36 Dose: 1 applic Digoxin (Lanoxin -) 0.125 mg PO DAILY [facility] Last Admin: 10/28/17 09:42 Dose: 0.125 mg Heparin Sodium (Porcine) (Heparin -) 5,000 unit SQ TID [facility] Last Admin: 10/28/17 06:42 Dose: 5,000 unit Norepinephrine Bitartrate 8, (000 mcg/ Dextrose) 500 mls @ 30 mls/hr IV TITR [facility]; Protocol Last Admin: 10/27/17 22:00 Dose: 17 mcg/min, 63.75 mls/hr Sodium Chloride (Normal Saline -) 1,000 mls @ 100 mls/hr IV ASDIR [facility] Last Admin: 10/28/17 09:50 Dose: 100 mls/hr Vasopressin 50 units/ Sodium (Chloride) 100 mls @ 4 mls/hr IVPB ASDIR [facility]; Protocol Last Admin: 10/27/17 10:00 Dose: 2 units/hr, 4 mls/hr Meropenem 500 mg/ Dextrose 100 mls @ 200 mls/hr IVPB Q8H-IV [facility] Last Admin: 10/28/17 10:52 Dose: 200 mls/hr Insulin Aspart (Novolog Vial Sliding Scale -) 1 vial SQ ACHS [facility]; Protocol Last Admin: 10/28/17 06:43 Dose: 4 units Levothyroxine Sodium 100 mcg/ (Levothyroxine Sodium 75 mcg) 175 mcg PO DAILY@ 0700 [facility] Last Admin: 10/28/17 06:43 Dose: 175 mcg Mupirocin (Bactroban Ointment (For Decolonization) -) 1 applic NS BID [facility] Stop: 11/01/17 09:59 Last Admin: 10/28/17 09:42 Dose: 1 applic Pantoprazole Sodium (Protonix Iv) 40 mg IVPUSH DAILY [facility] Last Admin: 08/30/18 09:41 Dose: 40 mg - Objective Vital Signs: Vital Signs Temperature 98 F 10/28/17 02:00 Pulse Rate 106 H 10/28/17 09:42 Respiratory Rate 18 10/28/17 08:00 Blood Pressure 128/80 10/28/17 08:00 O2 Sat by Pulse Oximetry (%) 98 10/27/17 21:00 Constitutional: Yes: No Distress Eyes: Yes: Conjunctiva Clear Cardiovascular: Yes: Regular Rate and Rhythm, Murmur, S1, S2 Respiratory: Yes: Diminished Gastrointestinal: Yes: Normal Bowel Sounds. No: Tenderness (abdomen sl distended, tympanitic) Edema: No Labs: CBC, BMP 10/28/17 05:30 10/28/17 05:30 INR, PTT INR 1.50 (0.83-1.09) H 10/28/17 05:30 Assessment/Plan Sepsis/ septic shock improved Polymicrobial bacteremia UTI/ possible sepsis secondary to UTI Lactic acidosis- resolved azotemia improved S/P AVR Awiat BC Continue empiric meropenem Check vanco level Redose 1gm T < 15
[2017-10-28 11:13] LABS: ANISOCYTOSIS 1+; MACROCYTOSIS 1+; PLATELET ESTIMATE DECREASED; ROULEAU 2+
[2017-10-28] MEDS ORDERED: POTASSIUM CHLORIDE TABS 20 MEQ TABLET.ER (FP) PO ONE (11:42)
--- NOTE | 2017-10-28 12:35 | PN ---
Teaching Attending Note Name of Resident: Kathrine Boykin ATTENDING PHYSICIAN STATEMENT I saw and evaluated the patient. I reviewed the resident's note and discussed the case with the resident. I agree with the resident's findings and plan as documented. SUBJECTIVE: Pt seen and examined in the ICU. Remains on levophed gtt but off vasopressin gtt. Blood cultures growing gram positive cocci in clusters. OBJECTIVE: Vital Signs Period Temp Pulse Resp BP Sys/Avelar Pulse Ox Last 24 Hr 97.7 F-99 F 77-106 14-22 94-147/54-87 98-98 Intake & Output 10/25/17 10/26/17 10/27/17 10/28/17 23:59 23:59 23:59 23:59 Intake Total 2850 1752 Output Total 5200 800 Balance -2350 952 Weight 86.183 kg 79.974 kg Gen: mildly tachypneic at rest Heart: RRR Lung: scattered basilar rhonchi Abd: soft, nontender Ext: no edema CBC, BMP 10/28/17 05:30 10/28/17 05:30 Active Medications Acetaminophen (Ofirmev Injection -) 1,000 mg IVPB Q24H PRN PRN Reason: FEVER Chlorhexidine Gluconate (Hibiclens For Decolonization -) 1 applic TP HS [facility] Last Admin: 10/27/17 21:36 Dose: 1 applic Digoxin (Lanoxin -) 0.125 mg PO DAILY [facility] Last Admin: 10/28/17 09:42 Dose: 0.125 mg Heparin Sodium (Porcine) (Heparin -) 5,000 unit SQ TID [facility] Last Admin: 10/28/17 06:42 Dose: 5,000 unit Norepinephrine Bitartrate 8, (000 mcg/ Dextrose) 500 mls @ 30 mls/hr IV TITR [facility]; Protocol Last Admin: 10/27/17 22:00 Dose: 17 mcg/min, 63.75 mls/hr Sodium Chloride (Normal Saline -) 1,000 mls @ 100 mls/hr IV ASDIR [facility] Last Admin: 10/28/17 09:50 Dose: 100 mls/hr Vasopressin 50 units/ Sodium (Chloride) 100 mls @ 4 mls/hr IVPB ASDIR [facility]; Protocol Last Admin: 10/27/17 10:00 Dose: 2 units/hr, 4 mls/hr Meropenem 500 mg/ Dextrose 100 mls @ 200 mls/hr IVPB Q8H-IV [facility] Last Admin: 10/28/17 10:52 Dose: 200 mls/hr Insulin Aspart (Novolog Vial Sliding Scale -) 1 vial SQ ACHS [facility]; Protocol Last Admin: 10/28/17 11:08 Dose: Not Given Levothyroxine Sodium 100 mcg/ (Levothyroxine Sodium 75 mcg) 175 mcg PO DAILY@ 0700 [facility] Last Admin: 10/28/17 06:43 Dose: 175 mcg Mupirocin (Bactroban Ointment (For Decolonization) -) 1 applic NS BID [facility] Stop: 11/01/17 09:59 Last Admin: 10/28/17 09:42 Dose: 1 applic Pantoprazole Sodium (Protonix Iv) 40 mg IVPUSH DAILY [facility] Last Admin: 10/28/17 09:41 Dose: 40 mg ASSESSMENT AND PLAN: Gram Positive Bacteremia r/o Endocarditis Hematuria Septic Shock Acute Kidney Injury Lactic Acidosis +Troponins likely Demand Ischemia Atrial Fibrillation HTN Hyperlipidemia Hypothyroidism - broad spectrum antibiotics - f/u cultures - cardiology eval to r/o endocarditis - IVF resuscitation to keep CVP 8-12 - titrate pressors to maintain MAP >65 - trend lactate, cardiac enzymes - monitor hematuria - hold anticoagulation for hematuria - monitor urine output, creatinine - DVT/GI prophylaxis - continue ICU monitoring critical care time spent in reviewing chart, evaluating patient and formulating plan 35 min
[2017-10-28] MEDS ORDERED: VANCOMYCIN 1,500 MG in DEXTROSE 5%-WATER - 500 ML IVPB ONE (13:00)
--- NOTE | 2017-10-28 14:30 | PN ---
Physical Exam: SUBJECTIVE: Patient is a 77 y/o male with a history of HTN, HLD, DM, afib, and stroke (2014 on AC) who is admitted for septic shock 2/2 to urosepsis. Patient had his sarah changed by Dr. Virgen to a 16 slovenian overnight. Patient has no complaints. OBJECTIVE: Vital Signs Temperature 99 F 10/28/17 10:00 Pulse Rate 84 10/28/17 10:00 Respiratory Rate 20 10/28/17 10:00 Blood Pressure 110/84 10/28/17 10:00 O2 Sat by Pulse Oximetry (%) 98 10/28/17 09:00 GENERAL: Awake, alert, left facial droop HEAD: Normal with no signs of trauma. EYES: Pupils equal, round and reactive to light, extraocular movements intact NECK: central line in R IJ placed on the 10/27 LUNGS: Breath sounds equal, clear to auscultation bilaterally HEART: Regular rate and rhythm, without murmur, rub or gallop. ABDOMEN:soft, tenderness to lower abdominal palpation MUSCULOSKELETAL: L LE 0/5 LUE 3/5 forearm flexion, 0/5 shoulder abduction/ adduction, R extremities 5/5 LOWER EXTREMITIES: . No calf tenderness. No peripheral edema. SKIN: Warm, dry, normal turgor, no rashes or lesions noted. CBCD WBC 22.6 K/mm3 (4.0-10.0) H 10/28/17 05:30 RBC 2.68 M/mm3 (4.00-5.60) L 10/28/17 05:30 Hgb 9.9 GM/dL (11.7-16.9) L 10/28/17 05:30 Hct 27.7 % (35.4-49) L 10/28/17 05:30 MCV 103.6 fl (80-96) H 10/28/17 05:30 MCHC 35.5 g/dl (32.0-35.9) 10/28/17 05:30 RDW 15.9 % (11.9-15.9) 10/28/17 05:30 Plt Count 139 K/MM3 (134-434) D 10/28/17 05:30 MPV 8.9 fl (7.5-11.1) 10/28/17 05:30 CMP Sodium 136 mmol/L (136-145) 10/28/17 05:30 Potassium 3.8 mmol/L (3.5-5.1) 10/28/17 05:30 Chloride 102 mmol/L (98-107) 10/28/17 05:30 Carbon Dioxide 23 mmol/L (21-32) 10/28/17 05:30 Anion Gap 11 MMOL/L (8-16) 10/28/17 05:30 BUN 26 mg/dL (7-18) H 10/28/17 05:30 Creatinine 1.6 mg/dL (0.7-1.3) H 10/28/17 05:30 Creat Clearance w eGFR 42.24 (>60) 10/28/17 05:30 Calcium 7.4 mg/dL (8.5-10.1) L 10/28/17 05:30 Total Bilirubin 0.9 mg/dL (0.2-1.0) 10/28/17 05:30 AST 35 U/L (15-37) D 10/28/17 05:30 ALT 26 U/L (12-78) D 10/28/17 05:30 Alkaline Phosphatase 63 U/L (45-117) D 10/28/17 05:30 Total Protein 5.2 g/dl (6.4-8.2) L 10/28/17 05:30 Albumin 2.3 g/dl (3.4-5.0) L 10/28/17 05:30 Active Medications Acetaminophen (Ofirmev Injection -) 1,000 mg IVPB Q24H PRN PRN Reason: FEVER Chlorhexidine Gluconate (Hibiclens For Decolonization -) 1 applic TP HS [facility] Last Admin: 10/27/17 21:36 Dose: 1 applic Digoxin (Lanoxin -) 0.125 mg PO DAILY [facility] Last Admin: 10/28/17 09:42 Dose: 0.125 mg Heparin Sodium (Porcine) (Heparin -) 5,000 unit SQ TID [facility] Last Admin: 10/28/17 06:42 Dose: 5,000 unit Norepinephrine Bitartrate 8, (000 mcg/ Dextrose) 500 mls @ 30 mls/hr IV TITR [facility]; Protocol Last Admin: 10/27/17 22:00 Dose: 17 mcg/min, 63.75 mls/hr Sodium Chloride (Normal Saline -) 1,000 mls @ 100 mls/hr IV ASDIR [facility] Last Admin: 10/28/17 09:50 Dose: 100 mls/hr Vasopressin 50 units/ Sodium (Chloride) 100 mls @ 4 mls/hr IVPB [facility]; Protocol Last Admin: 10/27/17 10:00 Dose: 2 units/hr, 4 mls/hr Meropenem 500 mg/ Dextrose 100 mls @ 200 mls/hr IVPB Q8H-IV [facility] Last Admin: 10/28/17 10:52 Dose: 200 mls/hr Vancomycin HCl 1,500 mg/ (Dextrose) 500 mls @ 250 mls/hr IVPB ONCE ONE; Protocol Stop: 10/28/17 14:59 Insulin Aspart (Novolog Vial Sliding Scale -) 1 vial SQ ACHS [facility]; Protocol Last Admin: 10/28/17 11:08 Dose: Not Given Levothyroxine Sodium 100 mcg/ (Levothyroxine Sodium 75 mcg) 175 mcg PO DAILY@ 0700 [facility] Last Admin: 10/28/17 06:43 Dose: 175 mcg Mupirocin (Bactroban Ointment (For Decolonization) -) 1 applic NS BID [facility] Stop: 11/01/17 09:59 Last Admin: 10/28/17 09:42 Dose: 1 applic Pantoprazole Sodium (Protonix Iv) 40 mg IVPUSH DAILY [facility] Last Admin: 10/28/17 09:41 Dose: 40 mg ASSESSMENT/PLAN: Patient is a 77 y/o male with a history of HTN, HLD, DM, afib, and stroke (2014 on AC) who presented from [facility] for septic shock. #Cardiac septic shock hypotension - levophed 6 mcg - maintain MAP > 65 - CVP 10 - Echo: LV size normal and function normal, EF normal. aortic dilation, bioprosthetic aortic valve, moderate tricuspid regurg, mobile mass - f/u Dr. Tilley- try to titrate levophed down afib - xarelto restarted - digoxin .125 mg po daily - f/u digoxin level @ 10 tropinemia - likely 2/2 to demand ischemia - trend down, last .22 #Renal JET - likely secondary to septic shock - FeNa 1.3% intrinsic renal # traumatic sarah - slovenian 16 in - patient has a chronic sarah - f/u Dr. Ramos #Infectious Disease possible urosepsis - Meropenem 500 mg q 8h (day 2) - Vancomycin 1.5 mg (day 1) - UA negative for esterase and WBC - blood cx- gram positive cocci and gram negative bacilli - Ucx- proteus - cdiff negative - f/u Dr. Dubon #GI ppx - Pantoprazole 40 mg IV push daily - CT shows constipation, pt currently having diarrhea #Endocrine hypothyroidism - Levothyroxine 175 mcg po daily DM - SS - last A1C 5.6 from September #Hematology anemia - s/p 1 unit, hgb stable - hgb 12> 9.9 DVT ppx - Xarelto - SCD's FEN - NS @ 100 - MG repleted - Keep Mg from 2-2.5, K 4-4.5, Phosp 4-4.9 - regular diet with ensure (chocolate) Dispo: wean off pressors Visit type - Emergency Visit Emergency Visit: No - New Patient This patient is new to me today: No - Critical Care Critical Care patient: Yes Total Critical Care Time (in minutes): 45 Critical Care Statement: The care of this patient involved high complexity decision making to prevent further life threatening deterioration of the patient 's condition and/or to evaluate & treat vital organ system(s) failure or risk of failure.
[2017-10-28] MEDS: VASOPRESSIN 50 UNITS in SODIUM CHLORIDE 97.5 ML IVPB SCH (15:08)
--- NOTE | 2017-10-28 15:32 | PN ---
Physical Exam: SUBJECTIVE: Patient seen and examined at bedside. Disoriented to place and time , oriented to person. Denies any complaints. OBJECTIVE: Vital Signs Period Temp Pulse Resp BP Sys/Avelar Pulse Ox Last 24 Hr 97.7 F-99 F 77-112 14-22 94-147/54-87 98-98 GENERAL: Awake, alert, oriented x 1 (person only) HEAD: NC/AT EYES: PERRLA, EOMI NECK: central line in R IJ placed on the 10/27 LUNGS: Unable to assess HEART: Irregularly irregular ABDOMEN:soft, tenderness to lower abdominal palpation NEUROLOGIC: L LE 0/5 LUE 3/5 forearm flexion, 0/5 shoulder abduction/adduction, R extremities 5/5 LOWER EXTREMITIES: . No calf tenderness. No peripheral edema. SKIN: Warm, dry, normal turgor, no rashes or lesions noted. Laboratory Results - last 24 hr 10/27/17 10/27/17 10/27/17 13:14 15:07 15:07 WBC RBC Hgb Hct MCV MCH MCHC RDW Plt Count MPV Absolute Neuts (auto) Neutrophils % Neutrophils % (Manual) Band Neutrophils % Lymphocytes % Lymphocytes % (Manual) Monocytes % Monocytes % (Manual) Eosinophils % Eosinophils % (Manual) Basophils % Basophils % (Manual) Myelocytes % (Man) Promyelocytes % (Man) Blast Cells % (Manual) Nucleated RBC % Metamyelocytes Hypochromia Platelet Estimate Polychromasia Poikilocytosis Basophilic Stippling Anisocytosis Macrocytosis Rouleaux PT with INR INR Sodium Potassium Chloride Carbon Dioxide Anion Gap BUN Creatinine Creat Clearance w eGFR POC Glucometer Random Glucose Lactic Acid 7.9 H* Calcium Phosphorus Magnesium Total Bilirubin AST ALT Alkaline Phosphatase Creatine Kinase Creatine Kinase Index CK-MB (CK-2) Troponin I Total Protein Albumin Ur Random Sodium Ur Random Potassium Ur Random Chloride Urine Creatinine Random Vancomycin Anti-A Titer Cancelled Blood Type AB NEGATIVE Cancelled Antibody Screen Positive H Cancelled Prewarmed Antibody Srcn Negative Antibody Identification Cold antibody Antigen Identification No Result Required. Crossmatch See Detail 10/27/17 10/27/17 10/27/17 15:07 17:00 17:00 WBC 23.1 H RBC 2.91 L Hgb 9.2 L Hct 29.6 L MCV 101.7 H MCH 31.5 D MCHC 31.0 L RDW 14.6 Plt Count 196 MPV 8.8 Absolute Neuts (auto) Neutrophils % Neutrophils % (Manual) Band Neutrophils % Lymphocytes % Lymphocytes % (Manual) Monocytes % Monocytes % (Manual) Eosinophils % Eosinophils % (Manual) Basophils % Basophils % (Manual) Myelocytes % (Man) Promyelocytes % (Man) Blast Cells % (Manual) Nucleated RBC % Metamyelocytes Hypochromia Platelet Estimate Polychromasia Poikilocytosis Basophilic Stippling Anisocytosis Macrocytosis Rouleaux PT with INR INR Sodium Potassium Chloride Carbon Dioxide Anion Gap BUN Creatinine Creat Clearance w eGFR POC Glucometer Random Glucose Lactic Acid Calcium Phosphorus Magnesium Total Bilirubin AST ALT Alkaline Phosphatase Creatine Kinase Creatine Kinase Index CK-MB (CK-2) Troponin I 0.20 H Total Protein Albumin Ur Random Sodium Ur Random Potassium Ur Random Chloride Urine Creatinine Random Vancomycin Anti-A Titer Blood Type AB NEGATIVE Antibody Screen Prewarmed Antibody Srcn Antibody Identification Antigen Identification Crossmatch 10/27/17 10/27/17 10/27/17 17:00 21:35 22:00 WBC RBC Hgb Hct MCV MCH MCHC RDW Plt Count MPV Absolute Neuts (auto) Neutrophils % Neutrophils % (Manual) Band Neutrophils % Lymphocytes % Lymphocytes % (Manual) Monocytes % Monocytes % (Manual) Eosinophils % Eosinophils % (Manual) Basophils % Basophils % (Manual) Myelocytes % (Man) Promyelocytes % (Man) Blast Cells % (Manual) Nucleated RBC % Metamyelocytes Hypochromia Platelet Estimate Polychromasia Poikilocytosis Basophilic Stippling Anisocytosis Macrocytosis Rouleaux PT with INR INR Sodium Potassium Chloride Carbon Dioxide Anion Gap BUN Creatinine Creat Clearance w eGFR POC Glucometer [phone] Random Glucose Lactic Acid 0.2 Calcium Phosphorus Magnesium Total Bilirubin AST ALT Alkaline Phosphatase Creatine Kinase Creatine Kinase Index CK-MB (CK-2) Troponin I Total Protein Albumin Ur Random Sodium 75 Ur Random Potassium 38.2 Ur Random Chloride 83 Urine Creatinine 68.9 Random Vancomycin Anti-A Titer Blood Type Antibody Screen Prewarmed Antibody Srcn Antibody Identification Antigen Identification Crossmatch 10/28/17 10/28/17 10/28/17 05:30 05:30 05:30 WBC 22.6 H RBC 2.68 L Hgb 9.9 L Hct 27.7 L MCV 103.6 H MCH 36.8 H D MCHC 35.5 RDW 15.9 Plt Count 139 D MPV 8.9 Absolute Neuts (auto) 20.6 H Neutrophils % 90.9 H Neutrophils % (Manual) 87.0 H D Band Neutrophils % 2.0 Lymphocytes % 2.5 L D Lymphocytes % (Manual) 4.0 L D Monocytes % 6.1 Monocytes % (Manual) 5 Eosinophils % 0.0 Eosinophils % (Manual) 0.0 Basophils % 0.5 Basophils % (Manual) 0.0 Myelocytes % (Man) 0 Promyelocytes % (Man) 0 Blast Cells % (Manual) 0 Nucleated RBC % 0 Metamyelocytes 2 Hypochromia 0 Platelet Estimate Decreased Polychromasia 1+ Poikilocytosis 1+ Basophilic Stippling 1+ Anisocytosis 1+ Macrocytosis 1+ Rouleaux 2+ PT with INR 16.90 H INR 1.50 H Sodium 136 Potassium 3.8 Chloride 102 Carbon Dioxide 23 Anion Gap 11 BUN 26 H Creatinine 1.6 H Creat Clearance w eGFR 42.24 POC Glucometer Random Glucose 201 H D Lactic Acid Calcium 7.4 L Phosphorus 2.7 Magnesium 1.7 L Total Bilirubin 0.9 AST 35 D ALT 26 D Alkaline Phosphatase 63 D Creatine Kinase Creatine Kinase Index CK-MB (CK-2) Troponin I Total Protein 5.2 L Albumin 2.3 L Ur Random Sodium Ur Random Potassium Ur Random Chloride Urine Creatinine Random Vancomycin Anti-A Titer Blood Type Antibody Screen Prewarmed Antibody Srcn Antibody Identification Antigen Identification Crossmatch 10/28/17 10/28/17 10/28/17 05:30 10:34 10:54 WBC RBC Hgb Hct MCV MCH MCHC RDW Plt Count MPV Absolute Neuts (auto) Neutrophils % Neutrophils % (Manual) Band Neutrophils % Lymphocytes % Lymphocytes % (Manual) Monocytes % Monocytes % (Manual) Eosinophils % Eosinophils % (Manual) Basophils % Basophils % (Manual) Myelocytes % (Man) Promyelocytes % (Man) Blast Cells % (Manual) Nucleated RBC % Metamyelocytes Hypochromia Platelet Estimate Polychromasia Poikilocytosis Basophilic Stippling Anisocytosis Macrocytosis Rouleaux PT with INR INR Sodium Potassium Chloride Carbon Dioxide Anion Gap BUN Creatinine Creat Clearance w eGFR POC Glucometer [phone] Random Glucose Lactic Acid Calcium Phosphorus Magnesium Total Bilirubin AST ALT Alkaline Phosphatase Creatine Kinase Creatine Kinase Index CK-MB (CK-2) Troponin I 0.27 H D Total Protein Albumin Ur Random Sodium Ur Random Potassium Ur Random Chloride Urine Creatinine Random Vancomycin 6.87 Anti-A Titer Blood Type Antibody Screen Prewarmed Antibody Srcn Antibody Identification Antigen Identification Crossmatch 10/28/17 12:19 WBC RBC Hgb Hct MCV MCH MCHC RDW Plt Count MPV Absolute Neuts (auto) Neutrophils % Neutrophils % (Manual) Band Neutrophils % Lymphocytes % Lymphocytes % (Manual) Monocytes % Monocytes % (Manual) Eosinophils % Eosinophils % (Manual) Basophils % Basophils % (Manual) Myelocytes % (Man) Promyelocytes % (Man) Blast Cells % (Manual) Nucleated RBC % Metamyelocytes Hypochromia Platelet Estimate Polychromasia Poikilocytosis Basophilic Stippling Anisocytosis Macrocytosis Rouleaux PT with INR INR Sodium Potassium Chloride Carbon Dioxide Anion Gap BUN Creatinine Creat Clearance w eGFR POC Glucometer Random Glucose Lactic Acid Calcium Phosphorus Magnesium Total Bilirubin AST ALT Alkaline Phosphatase Creatine Kinase 246 Creatine Kinase Index 0.8 CK-MB (CK-2) 2.21 Troponin I 0.22 H Total Protein Albumin Ur Random Sodium Ur Random Potassium Ur Random Chloride Urine Creatinine Random Vancomycin Anti-A Titer Blood Type Antibody Screen Prewarmed Antibody Srcn Antibody Identification Antigen Identification Crossmatch Active Medications Generic Name Dose Route Start Last Admin Trade Name Freq PRN Reason Stop Dose Admin Acetaminophen 1,000 mg 10/27/17 16:01 Ofirmev Injection - IVPB Q24H PRN FEVER Chlorhexidine Gluconate 1 applic 10/27/17 22:00 10/27/17 21:36 Hibiclens For Decolonization - TP 1 applic HS [facility] Administration Digoxin 0.125 mg 10/27/17 10:00 10/28/17 09:42 Lanoxin - PO 0.125 mg DAILY [facility] Administration Norepinephrine Bitartrate 8, 500 mls @ 30 mls/hr 10/27/17 07:30 10/27/17 22: 00 000 mcg/ Dextrose IV 17 mcg/min TITR [facility] 63.75 mls/hr Administration Protocol 8 MCG/MIN Sodium Chloride 1,000 mls @ 100 mls/hr 10/27/17 08:30 10/28/17 09:50 Normal Saline - IV 100 mls/hr ASDIR [facility] Administration Vasopressin 50 units/ Sodium 100 mls @ 4 mls/hr 10/27/17 10:00 10/28/17 15:08 Chloride IVPB Not Given ASDIR [facility] Protocol 2 UNITS/HR Meropenem 500 mg/ Dextrose 100 mls @ 200 mls/hr 10/27/17 11:00 10/28/17 10:52 IVPB 200 mls/hr Q8H-IV [facility] Administration Insulin Aspart 1 vial 10/27/17 16:30 10/28/17 11:08 Novolog Vial Sliding Scale - SQ Not Given ACHS [facility] Protocol Levothyroxine Sodium 100 mcg/ 175 mcg 10/28/17 07:00 10/28/17 06:43 Levothyroxine Sodium 75 mcg PO 175 mcg DAILY@0700 [facility] Administration Mupirocin 1 applic 10/27/17 10:00 10/28/17 09:42 Bactroban Ointment (For Decolonization) - NS 11/01/17 09:59 1 applic BID [facility] Administration Pantoprazole Sodium 40 mg 10/27/17 10:00 10/28/17 09:41 Protonix Iv IVPUSH 40 mg DAILY [facility] Administration Rivaroxaban 15 mg 10/28/17 18:00 Xarelto - PO DAILY@1800 [facility] ASSESSMENT/PLAN: 77 y/o M w/ PMHx HTN, HLD, DM, afib, CV (2013 on AC) admitted from [facility] for septic shock 2/2 UTI #Cardiac septic shock hypotension - levophed 6 mcg - maintain MAP > 65 - CVP 10 - Echo: LV size normal and function normal, EF normal. aortic dilation, bioprosthetic aortic valve, moderate tricuspid regurg, mobile mass - f/u Dr. Tilley- try to titrate levophed down afib - xarelto restarted - digoxin .125 mg po daily - f/u digoxin level @ 10 tropinemia - likely 2/2 to demand ischemia - trend down, last .22 #Renal JET - likely secondary to septic shock - FeNa 1.3% intrinsic renal # traumatic sarah - djiboutian 16 in - patient has a chronic sarah - f/u Dr. Ramos #Infectious Disease possible urosepsis - Meropenem 500 mg q 8h (day 2) - Vancomycin 1.5 mg (day 1) - UA negative for esterase and WBC - blood cx- gram positive cocci and gram negative bacilli - Ucx- proteus - cdiff negative - f/u Dr. Dubon #GI ppx - Pantoprazole 40 mg IV push daily - CT shows constipation, pt currently having diarrhea #Endocrine hypothyroidism - Levothyroxine 175 mcg po daily DM - SS - last A1C 5.6 from September #Hematology anemia - s/p 1 unit, hgb stable - hgb 12> 9.9 DVT ppx - Xarelto - SCD's FEN - NS @ 100 - MG repleted - Keep Mg from 2-2.5, K 4-4.5, Phosp 4-4.9 - regular diet with ensure (chocolate) Dispo: wean off pressors Visit type - Emergency Visit Emergency Visit: No - New Patient This patient is new to me today: No - Critical Care Critical Care patient: No
[2017-10-28] MEDS ORDERED: PT OWN MED DRAWER 7, Y5N ONE (17:23)
[2017-10-28] MEDS: RIVAROXABAN 15 MG TABLET PO SCH (17:28)
[2017-10-28] MEDS: CHLORHEXIDINE GLUCONATE 4% CLEANSER FOR DECOLONIZATION TP SCH (21:51)
[2017-10-29] MEDS ORDERED: PT OWN MED DRAWER 7, Y5N ONE ×4 (01:26→17:20)
[2017-10-29] MEDS: MEROPENEM 500 MG in DEXTROSE 5%-WATER 100 ML IVPB SCH ×3 (01:28→17:26)
[2017-10-29] MEDS ORDERED: LEVOTHYROXINE NA 75 MCG TABLET (FP) ONE (05:10)
[2017-10-29] MEDS ORDERED: LEVOTHYROXINE NA 100 MCG TABLET (FP) ONE (05:10)
[2017-10-29 06:09] LABS: INR 1.43 (0.83-1.09); PROTHROMBIN TIME (PATIENT) 16.2 SEC (9.7-13.0)
[2017-10-29 06:21] LABS: ALBUMIN 2.3 g/dl (3.4-5.0); ANION GAP 9 MMOL/L (8-16); BLOOD UREA NITROGEN 21 mg/dL (7-18); CHLORIDE 110 mmol/L (98-107); CO2 25 mmol/L (21-32); MAGNESIUM 2.3 mg/dL (1.8-2.4); PHOSPHOROUS 1.5 mg/dL (2.5-4.9); POTASSIUM 3.6 mmol/L (3.5-5.1); SGOT/AST 30 U/L (15-37); SODIUM 144 mmol/L (136-145)
[2017-10-29 06:24] LABS: ALK PHOS 72 U/L (45-117); BILIRUBIN,TOTAL 0.6 mg/dL (0.2-1.0); GLUCOSE,RANDOM 93 mg/dL (74-106); SGPT/ALT 23 U/L (12-78); TOT PROT 5.1 g/dl (6.4-8.2)
[2017-10-29] MEDS ORDERED: MAGNESIUM SULF 50% (8.12 MEQ/2 ML-1 GM VIAL) IVPB ONE (06:35)
[2017-10-29] MEDS: LEVOTHYROXINE 100 MCG, LEVOTHYROXINE 75 MCG PO SCH (06:48)
[2017-10-29] MEDS: INSULIN SLIDING SCALE (NOVOLOG) 1 VIAL SQ SCH ×4 (06:48→22:21)
[2017-10-29] MEDS: NOREPINEPHRINE BITARTRATE 8,000 MCG in DEXTROSE 5%-WATER - 492 ML IV SCH (06:49)
[2017-10-29] MEDS ORDERED: POTASSIUM CHLORIDE TABS 20 MEQ TABLET.ER (FP) PO ONE ×2 (07:13→11:45)
[2017-10-29] MEDS ORDERED: ATENOLOL 50 MG TABLET (FP) PO ONE (08:00)
[2017-10-29 08:05] LABS: MCHC 33.4 g/dl (32.0-35.9); MEAN CELL VOLUME 92.8 fl (80-96); MEAN PLT VOLUME 9.1 fl (7.5-11.1); PLATELET COUNT 132 K/MM3 (134-434); RBC 3.23 M/mm3 (4.00-5.60); RDW 16.1 % (11.9-15.9); WHITE BLOOD COUNT 18.2 K/mm3 (4.0-10.0)
--- NOTE | 2017-10-29 08:09 | PN ---
Teaching Attending Note Name of Resident: Jean Morocho ATTENDING PHYSICIAN STATEMENT I saw and evaluated the patient. I reviewed the resident's note and discussed the case with the resident. I agree with the resident's findings and plan as documented. SUBJECTIVE: In ICu ,continues to be on the Vent. Unable to wean him off the vent. OBJECTIVE: Vital Signs Temperature 98.5 F 10/29/17 02:00 Pulse Rate 132 H 10/29/17 06:00 Respiratory Rate 18 10/29/17 06:00 Blood Pressure 136/75 10/29/17 06:00 O2 Sat by Pulse Oximetry (%) 98 10/28/17 19:36 CBCD WBC 18.2 K/mm3 (4.0-10.0) H 10/29/17 05:30 RBC 3.23 M/mm3 (4.00-5.60) L 10/29/17 05:30 Hgb 10.0 GM/dL (11.7-16.9) L 10/29/17 05:30 Hct 30.0 % (35.4-49) L 10/29/17 05:30 MCV 92.8 fl (80-96) D 10/29/17 05:30 MCHC 33.4 g/dl (32.0-35.9) 10/29/17 05:30 RDW 16.1 % (11.9-15.9) H 10/29/17 05:30 Plt Count 132 K/MM3 (134-434) L 10/29/17 05:30 MPV 9.1 fl (7.5-11.1) 10/29/17 05:30 CMP Sodium 144 mmol/L (136-145) 10/29/17 05:30 Potassium 3.6 mmol/L (3.5-5.1) 10/29/17 05:30 Chloride 110 mmol/L (98-107) H 10/29/17 05:30 Carbon Dioxide 25 mmol/L (21-32) 10/29/17 05:30 Anion Gap 9 MMOL/L (8-16) 10/29/17 05:30 BUN 21 mg/dL (7-18) H 10/29/17 05:30 Creatinine 1.0 mg/dL (0.7-1.3) 10/29/17 05:30 Creat Clearance w eGFR > 60 (>60) 10/29/17 05:30 Random Glucose 93 mg/dL (74-106) D 10/29/17 05:30 Calcium 8.0 mg/dL (8.5-10.1) L 10/29/17 05:30 Total Bilirubin 0.6 mg/dL (0.2-1.0) 10/29/17 05:30 AST 30 U/L (15-37) 10/29/17 05:30 ALT 23 U/L (12-78) 10/29/17 05:30 Alkaline Phosphatase 72 U/L (45-117) 10/29/17 05:30 Total Protein 5.1 g/dl (6.4-8.2) L 10/29/17 05:30 Albumin 2.3 g/dl (3.4-5.0) L 10/29/17 05:30 CARDIAC ENZYMES Creatine Kinase 246 IU/L (39-308) 10/28/17 12:19 Troponin I 0.12 ng/ml (0.00-0.05) H D 10/28/17 21:20 Current Medications Generic Name Dose Route Start Last Admin Trade Name Freq PRN Reason Stop Dose Admin Acetaminophen 1,000 mg 10/27/17 16:01 Ofirmev Injection - IVPB Q24H PRN FEVER Atenolol 100 mg 10/30/17 10:00 Tenormin - PO DAILY [facility] Chlorhexidine Gluconate 1 applic 10/27/17 22:00 10/28/17 21:51 Hibiclens For Decolonization - TP 1 applic HS [facility] Administration Digoxin 0.125 mg 10/27/17 10:00 10/28/17 09:42 Lanoxin - PO 0.125 mg DAILY [facility] Administration Norepinephrine Bitartrate 8, 500 mls @ 30 mls/hr 10/27/17 07:30 10/29/17 06: 49 000 mcg/ Dextrose IV Not Given TITR [facility] Protocol 8 MCG/MIN Sodium Chloride 1,000 mls @ 100 mls/hr 10/27/17 08:30 10/28/17 09:50 Normal Saline - IV 100 mls/hr ASDIR [facility] Administration Vasopressin 50 units/ Sodium 100 mls @ 4 mls/hr 10/27/17 10:00 10/28/17 15:08 Chloride IVPB Not Given ASDIR [facility] Protocol 2 UNITS/HR Meropenem 500 mg/ Dextrose 100 mls @ 200 mls/hr 10/27/17 11:00 10/29/17 01:28 IVPB 200 mls/hr Q8H-IV [facility] Administration Insulin Aspart 1 vial 10/27/17 16:30 10/29/17 06:48 Novolog Vial Sliding Scale - SQ Not Given ACHS [facility] Protocol Levothyroxine Sodium 100 mcg/ 175 mcg 10/28/17 07:00 10/29/17 06:48 Levothyroxine Sodium 75 mcg PO 175 mcg DAILY@0700 [facility] Administration Mupirocin 1 applic 10/27/17 10:00 10/28/17 21:51 Bactroban Ointment (For Decolonization) - NS 11/01/17 09:59 1 applic BID [facility] Administration Pantoprazole Sodium 40 mg 10/27/17 10:00 10/28/17 09:41 Protonix Iv IVPUSH 40 mg DAILY [facility] Administration Potassium Phos/Sodium Phos 1 packet 10/29/17 10:00 Phos-Nak Packet - PO BID [facility] Rivaroxaban 15 mg 10/28/17 18:00 10/28/17 17:28 Xarelto - PO 15 mg DAILY@1800 [facility] Administration 10/27/17 07:59 Urine - Urine Clean Catch Urine Culture - Final Proteus Mirabilis 10/27/17 05:45 Blood - Peripheral Venous Blood Culture - Preliminary Non Lactose Fermenting Gnb Pending Organism#2 10/27/17 05:45 Blood - Peripheral Venous Blood Culture - Preliminary Staphylococcus Coagulase Neg 10/27/17 11:00 Stool Clostridium difficile Antigen (CAREN) - Final 10/27/17 11:00 Stool Clostridium difficile Toxin Assay - Final carotid US: Moderate atherosclerotic disease, left greater than right, with stenoses in the 60-79% range involving the internal carotid arteries. Clinical correlation and follow-up studies recommended. Please see above discussion. PE: looks very pale, nice gentleman otherwise alert, awake CVS:Irregularly irregulAR, RATE OF HIGH 90, s1s2 POSITIVE REST OF pe PER RESIDENT'S NOTE Abdominal CT (10/27/17):1. Right nephrolithiasis with no evidence of hydronephrosis or obstructive uropathy. 2. Thick-walled urinary bladder containing calculi. Air is also noted within the bladder that may be the result of recent instrumentation. 3. Chavez catheter within prostatic urethra. Repositioning recommended. 4. Air within the right common femoral vein of uncertain etiology. 5. Fecal impaction. Chest X-Ray (10/27/17): Large heart. Congestive changes. Right line in place. No pneumothorax. ASSESSMENT AND PLAN: Patient is a 77 y/o male with PMHx of HTN, HLD, DM, afib, and stroke (2013 on AC , Xarelto) who presented from [facility] for fever,hypotension and Hematuria. # Septic Shock , in icu continues to be on pressors levo and vasopressors, most likely due to UTI. Titrate to MAP>65. #UTI: Proteus Mirabilis on iv meropenem # Afib.on Xarelto with rate controlled on Digoxin # Hematuria s/p one unit of PRBC and FFP continue to monitor, presented with Hematuria s/p CBI urol: [place] # JET due to obstructive uropathy , s/p CBI. # Elevated Troponins most likely due demand ischemia ,echo, and repeat Trops. was elevated. cardio consult appreciated # HTN now hypotension hold the BP meds.on pressors now. # HLD on statins continue # NIDDMII sliding scale with coverage # Hypothyroidism continue synthroid if patient is unable to swallow oral meds continue with IV Levoxyl 1/2 of the dose of Oral Levoxyl # CAD s/p CABG 2012: will hold ASA due to hematuria #CVA in 2014: Hold ASA, Continue Simvastatin 10mg #Constipation:Patient at [place] on senna, and colace. # Hx of Dementia: Currently on no medications # BPH:Continue Flomax Prophylaxis:High risk. SCD's for DVT. HOLD aC FOR HAVING HEMATURIA GI Px: PPI
[2017-10-29 09:36] LABS: PHOSPHOROUS 1.4 mg/dL (2.5-4.9); POTASSIUM 3.6 mmol/L (3.5-5.1)
--- NOTE | 2017-10-29 09:37 | PN ---
Teaching Attending Note Name of Resident: Kathrine Boykin ATTENDING PHYSICIAN STATEMENT I saw and evaluated the patient. I reviewed the resident's note and discussed the case with the resident. I agree with the resident's findings and plan as documented. SUBJECTIVE: Pt seen and examined in the ICU. Off pressors. Hematuria resolved. Denies shortness of breath or chest pain. OBJECTIVE: Vital Signs Period Temp Pulse Resp BP Sys/Avelar Pulse Ox Last 24 Hr 98 F-99 F 84-132 11-21 88-136/64-96 98 Intake & Output 10/26/17 10/27/17 10/28/17 10/29/17 23:59 23:59 23:59 23:59 Intake Total 2850 3515 1395 Output Total 5200 1800 1000 Balance -2350 1715 395 Weight 86.183 kg 79.974 kg 80.484 kg Gen: NAD at rest Heart: RRR Lung: decreased breath sounds at the bases Abd: soft, nontender Ext: no edema CBC, BMP 10/29/17 05:30 10/29/17 09:00 Active Medications Acetaminophen (Ofirmev Injection -) 1,000 mg IVPB Q24H PRN PRN Reason: FEVER Atenolol (Tenormin -) 100 mg PO DAILY [facility] Chlorhexidine Gluconate (Hibiclens For Decolonization -) 1 applic TP HS [facility] Last Admin: 10/28/17 21:51 Dose: 1 applic Digoxin (Lanoxin -) 0.125 mg PO DAILY [facility] Last Admin: 10/28/17 09:42 Dose: 0.125 mg Sodium Chloride (Normal Saline -) 1,000 mls @ 100 mls/hr IV ASDIR [facility] Last Admin: 10/28/17 09:50 Dose: 100 mls/hr Meropenem 500 mg/ Dextrose 100 mls @ 200 mls/hr IVPB Q8H-IV [facility] Last Admin: 10/29/17 01:28 Dose: 200 mls/hr Insulin Aspart (Novolog Vial Sliding Scale -) 1 vial SQ ACHS [facility]; Protocol Last Admin: 10/29/17 06:48 Dose: Not Given Levothyroxine Sodium 100 mcg/ (Levothyroxine Sodium 75 mcg) 175 mcg PO DAILY@ 0700 [facility] Last Admin: 10/29/17 06:48 Dose: 175 mcg Mupirocin (Bactroban Ointment (For Decolonization) -) 1 applic NS BID [facility] Stop: 11/01/17 09:59 Last Admin: 10/28/17 21:51 Dose: 1 applic Pantoprazole Sodium (Protonix Iv) 40 mg IVPUSH DAILY [facility] Last Admin: 10/28/17 09:41 Dose: 40 mg Potassium Phos/Sodium Phos (Phos-Nak Packet -) 1 packet PO BID [facility] Rivaroxaban (Xarelto -) 15 mg PO DAILY@1800 [facility] Last Admin: 10/28/17 17:28 Dose: 15 mg ASSESSMENT AND PLAN: Bacteremia UTI Hematuria Septic Shock resolving Acute Kidney Injury Lactic Acidosis +Troponins likely Demand Ischemia Atrial Fibrillation HTN Hyperlipidemia Hypothyroidism - broad spectrum antibiotics - repeat cultures - monitor off pressors, maintain MAP >65 - rate control - continue anticoagulation - replete lytes - monitor urine output, creatinine - DVT/GI prophylaxis - continue ICU monitoring critical care time spent in reviewing chart, evaluating patient and formulating plan 35 min
[2017-10-29] MEDS ORDERED: METOPROLOL TARTRATE 5 MG/5 ML VIAL IVPUSH ONE ×2 (09:44→13:41)
[2017-10-29] MEDS: DIGOXIN 0.125 MG TABLET (FP) PO SCH (09:58)
[2017-10-29] MEDS: PANTOPRAZOLE SODIUM 40 MG VIAL IVPUSH SCH (09:59)
[2017-10-29] MEDS: MUPIROCIN 2% TOPICAL OINTMENT FOR DECOLONIZATION NS SCH ×2 (09:59→21:38)
[2017-10-29] MEDS ORDERED: NAPH,MB-DB/K PH,MBDB POWDER PACKET PO SCH (10:00)
[2017-10-29] MEDS: SODIUM CHLORIDE 1,000 ML IV SCH (10:11)
--- NOTE | 2017-10-29 10:20 | PN ---
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, Physician History of Present Illness: Mr. Bains is a 77 you white male w/ pmh of dementia, GERD, HTN, HLD, afib, hypothyroidism, PH, DMII, known UTI on day 12 of 31 day course of macrobid who presents for evaluation of fever to 102.8 despite tylenol 650 and brown/margaret appearing urine. Patient reportedly at baseline per [facility] staff however concern for sepsis prompted transfer to ED. - Current Medication List Current Medications: Active Medications Acetaminophen (Ofirmev Injection -) 1,000 mg IVPB Q24H PRN PRN Reason: FEVER Atenolol (Tenormin -) 100 mg PO DAILY [facility] Chlorhexidine Gluconate (Hibiclens For Decolonization -) 1 applic TP HS [facility] Last Admin: 10/28/17 21:51 Dose: 1 applic Digoxin (Lanoxin -) 0.125 mg PO DAILY [facility] Last Admin: 10/29/17 09:58 Dose: 0.125 mg Sodium Chloride (Normal Saline -) 1,000 mls @ 100 mls/hr IV ASDIR [facility] Last Admin: 10/29/17 10:11 Dose: 100 mls/hr Meropenem 500 mg/ Dextrose 100 mls @ 200 mls/hr IVPB Q8H-IV [facility] Last Admin: 10/29/17 09:58 Dose: 200 mls/hr Insulin Aspart (Novolog Vial Sliding Scale -) 1 vial SQ [facility]; Protocol Last Admin: 10/29/17 06:48 Dose: Not Given Levothyroxine Sodium 100 mcg/ (Levothyroxine Sodium 75 mcg) 175 mcg PO DAILY@ 0700 [facility] Last Admin: 10/29/17 06:48 Dose: 175 mcg Metoprolol Tartrate (Lopressor Injection -) 5 mg IVPUSH ONCE ONE Stop: 10/29/17 09:45 Last Admin: 10/29/17 10:12 Dose: 5 mg Mupirocin (Bactroban Ointment (For Decolonization) -) 1 applic NS BID [facility] Stop: 11/01/17 09:59 Last Admin: 10/29/17 09:59 Dose: 1 applic Pantoprazole Sodium (Protonix Iv) 40 mg IVPUSH DAILY [facility] Last Admin: 10/29/17 09:59 Dose: 40 mg Potassium Phos/Sodium Phos (Phos-Nak Packet -) 1 packet PO BID [facility] Last Admin: 10/29/17 09:58 Dose: 1 packet Rivaroxaban (Xarelto -) 15 mg PO DAILY@1800 [facility] Last Admin: 10/28/17 17:28 Dose: 15 mg - Objective Vital Signs: Vital Signs Temperature 98.5 F 10/29/17 02:00 Pulse Rate 134 H 10/29/17 10:12 Respiratory Rate 18 10/29/17 08:00 Blood Pressure 120/88 10/29/17 10:12 O2 Sat by Pulse Oximetry (%) 98 10/28/17 19:36 Eyes: Yes: WNL, Conjunctiva Clear, EOM Intact HENT: Yes: WNL, Atraumatic, Normocephalic Neck: Yes: WNL, Supple, Trachea Midline Cardiovascular: Yes: WNL, Regular Rate and Rhythm Respiratory: Yes: WNL, Regular, CTA Bilaterally Gastrointestinal: Yes: WNL, Normal Bowel Sounds Genitourinary: Yes: WNL Musculoskeletal: Yes: WNL Extremities: Yes: WNL Edema: No Integumentary: Yes: WNL Neurological: Yes: WNL, Alert, Oriented ...Motor Strength: WNL Psychiatric: Yes: WNL Labs: CBC, BMP 10/29/17 05:30 10/29/17 09:00 INR, PTT INR 1.43 (0.83-1.09) H 10/29/17 05:30 Assessment/Plan - Problems (1) History of aortic valve replacement with bioprosthetic valve Assessment/Plan: Will review ECHO (prosthetic Aov; cannot r/o veg on tricuspid valve; likely torn cordae tendonae).. On antibiotics per ID; f/u cultures, clinical status (was febrile; hypotensive-- >presnelty on norepinephrine). Blood cultures negative presently (foloow up today's reading); afebrile. Consider MERLE if intractable bacteremia and/or fever. Keep Mg 2-2.4, K 4-4.5, PO4 2.5-4.9. Reported hx Dementia: Consider cerebral imaging (CT and/or MR); pt gives hx of AF for many years, but apparently not on anticoagulation until relatively recently; r/o cerebral infarcts. Code(s): Z95.3 - PRESENCE OF XENOGENIC HEART VALVE (2) Hematuria Code(s): R31.9 - HEMATURIA, UNSPECIFIED Qualifiers: Hematuria type: gross Qualified Code(s): R31.0 - Gross hematuria (3) Septic shock Code(s): A41.9 - SEPSIS, UNSPECIFIED ORGANISM; R65.21 - SEVERE SEPSIS WITH SEPTIC SHOCK cc time spent 37 min
--- NOTE | 2017-10-29 10:46 | PN ---
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, Physician History of Present Illness: Awake , alert No focal complaint Temps down afebrile BP improved Off pressors WBC remains elevated BC SCN, Proteus sp - Current Medication List Current Medications: Active Medications Acetaminophen (Ofirmev Injection -) 1,000 mg IVPB Q24H PRN PRN Reason: FEVER Atenolol (Tenormin -) 100 mg PO DAILY [facility] Chlorhexidine Gluconate (Hibiclens For Decolonization -) 1 applic TP HS [facility] Last Admin: 10/28/17 21:51 Dose: 1 applic Digoxin (Lanoxin -) 0.125 mg PO DAILY [facility] Last Admin: 10/29/17 09:58 Dose: 0.125 mg Sodium Chloride (Normal Saline -) 1,000 mls @ 100 mls/hr IV ASDIR [facility] Last Admin: 10/29/17 10:11 Dose: 100 mls/hr Meropenem 500 mg/ Dextrose 100 mls @ 200 mls/hr IVPB Q8H-IV [facility] Last Admin: 10/29/17 09:58 Dose: 200 mls/hr Insulin Aspart (Novolog Vial Sliding Scale -) 1 vial SQ [facility]; Protocol Last Admin: 10/29/17 06:48 Dose: Not Given Levothyroxine Sodium 100 mcg/ (Levothyroxine Sodium 75 mcg) 175 mcg PO DAILY@ 0700 [facility] Last Admin: 10/29/17 06:48 Dose: 175 mcg Metoprolol Tartrate (Lopressor Injection -) 5 mg IVPUSH ONCE ONE Stop: 10/29/17 09:45 Last Admin: 10/29/17 10:12 Dose: 5 mg Mupirocin (Bactroban Ointment (For Decolonization) -) 1 applic NS BID [facility] Stop: 11/01/17 09:59 Last Admin: 10/29/17 09:59 Dose: 1 applic Pantoprazole Sodium (Protonix Iv) 40 mg IVPUSH DAILY [facility] Last Admin: 10/29/17 09:59 Dose: 40 mg Potassium Phos/Sodium Phos (Phos-Nak Packet -) 1 packet PO BID [facility] Last Admin: 10/29/17 09:58 Dose: 1 packet Rivaroxaban (Xarelto -) 15 mg PO DAILY@1800 [facility] Last Admin: 10/28/17 17:28 Dose: 15 mg - Objective Vital Signs: Vital Signs Temperature 98.5 F 10/29/17 02:00 Pulse Rate 134 H 10/29/17 10:12 Respiratory Rate 18 10/29/17 08:00 Blood Pressure 120/88 10/29/17 10:12 O2 Sat by Pulse Oximetry (%) 98 10/28/17 19:36 Constitutional: Yes: No Distress Eyes: Yes: Conjunctiva Clear Cardiovascular: Yes: Regular Rate and Rhythm, Tachycardia, S1, S2 Respiratory: Yes: CTA Bilaterally Gastrointestinal: Yes: Normal Bowel Sounds, Soft. No: Tenderness Edema: No Labs: CBC, BMP 10/29/17 05:30 10/29/17 09:00 INR, PTT INR 1.43 (0.83-1.09) H 10/29/17 05:30 Assessment/Plan Sepsis/ septic shock improved Polymicrobial bacteremia UTI/ possible sepsis secondary to UTI Lactic acidosis- resolved azotemia improved S/P AVR Awiat BC Continue empiric meropenem
--- NOTE | 2017-10-29 11:59 | PN ---
Physical Exam: SUBJECTIVE: Patient seen and examined at bedside. Fully oriented. Denies any complaints. OBJECTIVE: Vital Signs Period Temp Pulse Resp BP Sys/Avelar Pulse Ox Last 24 Hr 98 F-98.9 F 102-137 11-21 88-136/64-96 98-98 GENERAL: A&Ox3 (improved vs yesterday) HEAD: NC/AT EYES: PERRLA, EOMI NECK: central line in R IJ placed on the 10/27 LUNGS: Unable to assess HEART: Irregularly irregular, tachy ABDOMEN:soft, tenderness to lower abdominal palpation NEUROLOGIC: L LE 0/5 LUE 3/5 forearm flexion, 0/5 shoulder abduction/adduction, R extremities 5/5 EXTREMITIES: No stigmata of endocarditis. No calf tenderness. No peripheral edema. SKIN: Warm, dry, normal turgor, no rashes or lesions noted. Laboratory Results - last 24 hr 10/28/17 10/28/17 10/28/17 05:55 12:19 17:05 WBC RBC Hgb Hct MCV MCH MCHC RDW Plt Count MPV PT with INR INR Sodium Potassium Chloride Carbon Dioxide Anion Gap BUN Creatinine Creat Clearance w eGFR POC Glucometer [phone] Random Glucose Calcium Phosphorus Magnesium Total Bilirubin AST ALT Alkaline Phosphatase Creatine Kinase 246 Creatine Kinase Index 0.8 CK-MB (CK-2) 2.21 Troponin I 0.22 H Total Protein Albumin Digoxin 10/28/17 10/28/17 10/29/17 21:20 21:20 05:30 WBC 18.2 H RBC 3.23 L Hgb 10.0 L Hct 30.0 L MCV 92.8 D MCH 31.0 D MCHC 33.4 RDW 16.1 H Plt Count 132 L MPV 9.1 PT with INR INR Sodium Potassium Chloride Carbon Dioxide Anion Gap BUN Creatinine Creat Clearance w eGFR POC Glucometer Random Glucose Calcium Phosphorus Magnesium Total Bilirubin AST ALT Alkaline Phosphatase Creatine Kinase Creatine Kinase Index CK-MB (CK-2) Troponin I 0.12 H D Total Protein Albumin Digoxin 0.78 L 10/29/17 10/29/17 10/29/17 05:30 05:30 09:00 WBC RBC Hgb Hct MCV MCH MCHC RDW Plt Count MPV PT with INR 16.20 H INR 1.43 H Sodium 144 Potassium 3.6 3.6 Chloride 110 H Carbon Dioxide 25 Anion Gap 9 BUN 21 H Creatinine 1.0 Creat Clearance w eGFR > 60 POC Glucometer Random Glucose 93 D Calcium 8.0 L Phosphorus 1.5 L D 1.4 L Magnesium 2.3 D 2.0 Total Bilirubin 0.6 AST 30 ALT 23 Alkaline Phosphatase 72 Creatine Kinase Creatine Kinase Index CK-MB (CK-2) Troponin I Total Protein 5.1 L Albumin 2.3 L Digoxin Active Medications Generic Name Dose Route Start Last Admin Trade Name Freq PRN Reason Stop Dose Admin Acetaminophen 1,000 mg 10/27/17 16:01 Ofirmev Injection - IVPB Q24H PRN FEVER Atenolol 100 mg 10/30/17 10:00 Tenormin - PO DAILY [facility] Chlorhexidine Gluconate 1 applic 10/27/17 22:00 10/28/17 21:51 Hibiclens For Decolonization - TP 1 applic HS [facility] Administration Digoxin 0.125 mg 10/27/17 10:00 10/29/17 09:58 Lanoxin - PO 0.125 mg DAILY [facility] Administration Sodium Chloride 1,000 mls @ 100 mls/hr 10/27/17 08:30 10/29/17 10:11 Normal Saline - IV 100 mls/hr ASDIR [facility] Administration Meropenem 500 mg/ Dextrose 100 mls @ 200 mls/hr 10/27/17 11:00 10/29/17 09:58 IVPB 200 mls/hr Q8H-IV [facility] Administration Insulin Aspart 1 vial 10/27/17 16:30 10/29/17 11:26 Novolog Vial Sliding Scale - SQ 2 units ACHS [facility] Administration Protocol Levothyroxine Sodium 100 mcg/ 175 mcg 10/28/17 07:00 10/29/17 06:48 Levothyroxine Sodium 75 mcg PO 175 mcg DAILY@0700 [facility] Administration Mupirocin 1 applic 10/27/17 10:00 10/29/17 09:59 Bactroban Ointment (For Decolonization) - NS 11/01/17 09:59 1 applic BID [facility] Administration Pantoprazole Sodium 40 mg 10/27/17 10:00 10/29/17 09:59 Protonix Iv IVPUSH 40 mg DAILY [facility] Administration Potassium Phos/Sodium Phos 1 packet 10/29/17 14:00 Phos-Nak Packet - PO TID [facility] Rivaroxaban 15 mg 10/28/17 18:00 10/28/17 17:28 Xarelto - PO 15 mg DAILY@1800 [facility] Administration ASSESSMENT/PLAN: 77 y/o M w/ PMHx HTN, HLD, DM, afib, CV (2013 on AC) admitted from [facility] for septic shock 2/2 UTI #Cardiac septic shock hypotension - off pressors and maintaining MAP >65 - Echo: LV size normal and function normal, EF normal. aortic dilation, bioprosthetic aortic valve, moderate tricuspid regurg, mobile mass - was tachy overnight and in AFib, restarted on atenolol - Cards (Dr. Tilley) following, reccs appreciated afib - xarelto 15 mg for CrCl at 44 - digoxin .125 mg po daily - digoxin level @ .78 - HR uncontrolled, 2 doses of lopressor 5 mg IV push - restarted home does atenolol 100 mg once a day tropinemia - likely 2/2 to demand ischemia - downtrending, last .12 #Renal JET - resolved - likely secondary to septic shock - FeNa 1.3% intrinsic renal # traumatic sarah - citizen of [place] 16 in - patient has a chronic sarah - f/u Dr. Ramos #Infectious Disease possible urosepsis - Meropenem 500 mg q 8h (day 3) - UA negative for esterase and WBC - blood cx- coag-neg Staph and Lac-neg Gnb - Ucx- proteus - cdiff negative - f/u Dr. Dubon #GI ppx - Pantoprazole 40 mg IV push daily - CT shows constipation, pt currently having diarrhea #Endocrine hypothyroidism - Levothyroxine 175 mcg po daily DM - SSI - last A1C 5.6 from September #Hematology anemia - s/p 1 unit, hgb stable DVT ppx - Xarelto - SCD's FEN - NS @ 100 - K and phosp repleted - Keep Mg from 2-2.5, K 4-4.5, Phosp 4-4.9 - pureed diet with ensure (chocolate), if problems with swallowing switch to clear liquids - I : 1395 O : 1000 B : 395 Dispo: ICU Visit type - Emergency Visit Emergency Visit: No - New Patient This patient is new to me today: No - Critical Care Critical Care patient: No
--- NOTE | 2017-10-29 12:53 | CONSULT ---
Admitting History and Physical - Admission History of Present Illness: Mr. Bains is a 77 you white male w/ pmh of dementia, GERD, HTN, HLD, afib, hypothyroidism, PH, DMII, known UTI on day 12 of 31 day course of macrobid who presents for evaluation of fever to 102.8 despite tylenol 650 and brown/margaret appearing urine. Patient reportedly at baseline per NH staff however concern for sepsis prompted transfer to ED Selected Entries 10/28/17 10/28/17 10/28/17 02:00 10:00 10:13 Breakfast NPO Lunch 75% Supper Temperature 98 F 99 F 10/28/17 10/28/17 10/28/17 14:00 18:00 19:33 Breakfast Lunch Supper 50% Temperature 98.8 F 98 F 10/28/17 10/29/17 10/29/17 20:00 02:00 09:41 Breakfast 75% Lunch Supper Temperature 98.7 F 98.5 F 10/29/17 10:00 Breakfast Lunch Supper Temperature 98.9 F Laboratory Tests 10/27/17 10/28/17 10/29/17 05:45 05:30 05:30 WBC Cancelled 22.6 H 18.2 H On Chopped diet/Ensure, Referred for difficulty swallowing. Nursing reports pt becomes tachy while eating. Pt seen bedside, hiccoughing,which pt reports has been going on for 3 days. History Source: Medical Record Limitations to Obtaining History: Clinical Condition - Smoking History Smoking history: Never smoked Have you smoked in the past 12 months: No - Alcohol/Substance Use Hx Alcohol Use: No History - Admission Reason For Visit: SEPTIC SHOCK - General Mental Status: Awake and Alert, Able to Follow Commands Attention: Intact Ability to Follow Directions: Good Head/Neck Control: Fair - Hearing Hearing: Functional Hearing: Normal Speech Evaluation - Communication Primary Language: MONGOLIAN - Speech Production Able to Make Needs Known: Yes: WNL Intelligibility: Yes: Mildly Impaired - Speech Characteristics Voice Loudness: Normal Voice Pitch: Yes: Normal Voice Phonatory-based Quality: Yes: Normal Speech Clarity: < 100% Nasal Resonance: Normal Articulation: Yes: Imprecise (mild) - Language/Auditory Comprehension Follows: Yes: 1 Stage Simple Commands - Language/Verbal Expression Able to Respond to Simple Queries: Yes: WNL Able to Communicate Wants and Needs: Yes: WNL Functional Communication Status: Yes: WNL - Swallow Evaluation/Bedside Assessment Current Nutritional Intake: Dysphagia Minced, Thin Liquids, Other (glucerna) Oral Secretions: Yes: WFL Dentition: Yes: Adequate Facial Symmetry at Rest: Symmetrical Facial Symmetry on Retraction: Symmetrical Facial Movement: Controlled Against Resistance Opening: Normal Against Resistance Closing: Normal Pucker Lips: Normal Smile: Normal Lingual Movement: Normal, Symmetric Lingual Speed of Movement: Normal Lingual Movement Strgth Against Opposition: Normal Lingual Movement Characteristics: Normal Velopharyngeal Movement: Normal Laryngeal Movement: Able to Palpate, Labored,delay initiation Rate of Intake: WFL Bolus Size: Small Chewing: WFL (increased duration) Pocketing: None Timing of Swallow: Delayed Recommendations - Speech Evaluation, Impression/Plan Impression: Hiccoughing when I arrived. Tolerated water overtly. Extended chewing with chopped meat, swallowing, Open eye response, HR increased, began heaving, vomited. Nursing assisted. A few minutes later, evaluated again with good tolerance of water and applesauce/pudding without overt difficulty.Nursing feels pt becomes more tachycardic whlie eating. Stasis of chopped food in pharynx? Gagged on meat because of taste vs residue? - Dysphagia Impressions/Plan Dysphagia Impressions: Ongoing Evaluation *Silent aspiration: cannot be R/O at bedside Dysphagia Treatment Plan: Elevate HOB during feed, Other (assistance with meals) Recommendations: Modified Barium Swallow (if difficulty persists), Other (1/2 tsp at a time. alternate with sip of liquid. If symptoms, downgrade to liquids/ Glucerna and MBS on Wednesday, after holiday weekend.) - Recommendations Diet Consistency: Dysphagia Pureed Medication Administration: Crushed with applesauce Liquids: Thin Liquids Supplement: Glucerna
[2017-10-29] MEDS: NAPH,MB-DB/K PH,MBDB POWDER PACKET PO SCH ×2 (14:14→21:37)
--- NOTE | 2017-10-29 14:21 | PN ---
Physical Exam: SUBJECTIVE: Patient is a 77 y/o male with a history of HTN, HLD, DM, afib, and stroke (2014 on AC) who is admitted for septic shock 2/2 to urosepsis. Patient had no acute events overnight. Patient continues to be tachycardic overnight OBJECTIVE: Vital Signs Temperature 98.9 F 10/29/17 10:00 Pulse Rate 134 H 10/29/17 10:12 Respiratory Rate 18 10/29/17 10:00 Blood Pressure 120/88 10/29/17 10:12 O2 Sat by Pulse Oximetry (%) 98 10/29/17 09:00 GENERAL: Awake, alert, left facial droop HEAD: Normal with no signs of trauma. EYES: Pupils equal, round and reactive to light, extraocular movements intact NECK: central line in R IJ placed on the 10/27 LUNGS: Breath sounds equal, clear to auscultation bilaterally HEART: Regular rate and rhythm, without murmur, rub or gallop. ABDOMEN:soft, tenderness to lower abdominal palpation MUSCULOSKELETAL: L LE 0/5 LUE 3/5 forearm flexion, 0/5 shoulder abduction/ adduction, R extremities 5/5 LOWER EXTREMITIES: . No calf tenderness. No peripheral edema. SKIN: Warm, dry, normal turgor, no rashes or lesions noted. CBCD WBC 18.2 K/mm3 (4.0-10.0) H 10/29/17 05:30 RBC 3.23 M/mm3 (4.00-5.60) L 10/29/17 05:30 Hgb 10.0 GM/dL (11.7-16.9) L 10/29/17 05:30 Hct 30.0 % (35.4-49) L 10/29/17 05:30 MCV 92.8 fl (80-96) D 10/29/17 05:30 MCHC 33.4 g/dl (32.0-35.9) 10/29/17 05:30 RDW 16.1 % (11.9-15.9) H 10/29/17 05:30 Plt Count 132 K/MM3 (134-434) L 10/29/17 05:30 MPV 9.1 fl (7.5-11.1) 10/29/17 05:30 CMP Sodium 144 mmol/L (136-145) 10/29/17 05:30 Potassium 3.6 mmol/L (3.5-5.1) 10/29/17 09:00 Chloride 110 mmol/L (98-107) H 10/29/17 05:30 Carbon Dioxide 25 mmol/L (21-32) 10/29/17 05:30 Anion Gap 9 MMOL/L (8-16) 10/29/17 05:30 BUN 21 mg/dL (7-18) H 10/29/17 05:30 Creatinine 1.0 mg/dL (0.7-1.3) 10/29/17 05:30 Creat Clearance w eGFR > 60 (>60) 10/29/17 05:30 Calcium 8.0 mg/dL (8.5-10.1) L 10/29/17 05:30 Total Bilirubin 0.6 mg/dL (0.2-1.0) 10/29/17 05:30 AST 30 U/L (15-37) 10/29/17 05:30 ALT 23 U/L (12-78) 10/29/17 05:30 Alkaline Phosphatase 72 U/L (45-117) 10/29/17 05:30 Total Protein 5.1 g/dl (6.4-8.2) L 10/29/17 05:30 Albumin 2.3 g/dl (3.4-5.0) L 10/29/17 05:30 Microbiology 10/27/17 07:59 Urine - Urine Clean Catch Urine Culture - Final Proteus Mirabilis 10/27/17 05:45 Blood - Peripheral Venous Blood Culture - Preliminary Non Lactose Fermenting Gnb Pending Organism#2 10/27/17 05:45 Blood - Peripheral Venous Blood Culture - Preliminary Staphylococcus Coagulase Neg Active Medications Acetaminophen (Ofirmev Injection -) 1,000 mg IVPB Q24H PRN PRN Reason: FEVER Atenolol (Tenormin -) 100 mg PO DAILY [facility] Chlorhexidine Gluconate (Hibiclens For Decolonization -) 1 applic TP HS [facility] Last Admin: 10/28/17 21:51 Dose: 1 applic Digoxin (Lanoxin -) 0.125 mg PO DAILY [facility] Last Admin: 10/29/17 09:58 Dose: 0.125 mg Sodium Chloride (Normal Saline -) 1,000 mls @ 100 mls/hr IV ASDIR [facility] Last Admin: 10/29/17 10:11 Dose: 100 mls/hr Meropenem 500 mg/ Dextrose 100 mls @ 200 mls/hr IVPB Q8H-IV [facility] Last Admin: 10/29/17 09:58 Dose: 200 mls/hr Insulin Aspart (Novolog Vial Sliding Scale -) 1 vial SQ ACHS [facility]; Protocol Last Admin: 10/29/17 11:26 Dose: 2 units Levothyroxine Sodium 100 mcg/ (Levothyroxine Sodium 75 mcg) 175 mcg PO DAILY@ 0700 [facility] Last Admin: 10/29/17 06:48 Dose: 175 mcg Metoprolol Tartrate (Lopressor Injection -) 5 mg IVPUSH ONCE ONE Stop: 10/29/17 13:42 Mupirocin (Bactroban Ointment (For Decolonization) -) 1 applic NS BID [facility] Stop: 11/01/17 09:59 Last Admin: 10/29/17 09:59 Dose: 1 applic Pantoprazole Sodium (Protonix Iv) 40 mg IVPUSH DAILY [facility] Last Admin: 10/29/17 09:59 Dose: 40 mg Potassium Phos/Sodium Phos (Phos-Nak Packet -) 1 packet PO TID [facility] Rivaroxaban (Xarelto -) 15 mg PO DAILY@1800 [facility] Last Admin: 10/28/17 17:28 Dose: 15 mg ASSESSMENT/PLAN: Patient is a 77 y/o male with a history of HTN, HLD, DM, afib, and stroke (2014 on AC) who presented from [facility] for septic shock. #Cardiac septic shock hypotension : resolved - Echo: LV size normal and function normal, EF normal. aortic dilation, bioprosthetic aortic valve, moderate tricuspid regurg, mobile mass - f/u Dr. Tilley afib - xarelto 15 mg for CrCl at 44 - digoxin .125 mg po daily - digoxin level @ .78 - HR uncontrolled, 2 doses of lopressor 5 mg IV push - restarted home does atenolol 100 mg once a day tropinemia - likely 2/2 to demand ischemia - trend down, last .22 #Renal JET: resolved - likely secondary to septic shock - FeNa 1.3% intrinsic renal # traumatic sarah - [place] 16 in, no further hematuria - patient has a chronic sarah - f/u Dr. Ramos #Infectious Disease possible urosepsis - Meropenem 500 mg q 8h (day 3) - UA negative for esterase and WBC - blood cx-staph coag negative and non lactose fermenting gnb - Ucx- proteus - cdiff negative - f/u Dr. Dubon #GI ppx - Pantoprazole 40 mg IV push daily #Endocrine hypothyroidism - Levothyroxine 175 mcg po daily DM - SS - last A1C 5.6 from September #Hematology anemia - s/p 1 unit, hgb stable DVT ppx - Xarelto - SCD's FEN - NS @ 100 - K and phosp repleted - Keep Mg from 2-2.5, K 4-4.5, Phosp 4-4.9 - pureed diet with ensure (chocolate), if problems with swallowing switch to clear liquids - I : 1395 O : 1000 B : 395 Dispo: control HR, possibly transfer tomorrow Visit type - Emergency Visit Emergency Visit: No - New Patient This patient is new to me today: No - Critical Care Critical Care patient: Yes Total Critical Care Time (in minutes): 45 Critical Care Statement: The care of this patient involved high complexity decision making to prevent further life threatening deterioration of the patient 's condition and/or to evaluate & treat vital organ system(s) failure or risk of failure.
--- NOTE | 2017-10-29 14:39 | EKG ---
Test Reason : Blood Pressure : / mmHG Vent. Rate : 126 BPM Atrial Rate : 156 BPM P-R Int : 000 ms QRS Dur : 094 ms QT Int : 322 ms P-R-T Axes : 000 001 116 degrees QTc Int : 466 ms ATRIAL FIBRILLATION WITH RAPID VENTRICULAR RESPONSE NONSPECIFIC ST AND T WAVE ABNORMALITY ABNORMAL ECG WHEN COMPARED WITH ECG OF 27-OCT-2017 05:50, NO SIGNIFICANT CHANGE WAS FOUND Confirmed by ALISTAIR CLARK, ELISHA ([id number]) on 10/29/2017 2:38:46 PM Referred By: BRANDON LYMAN DR Confirmed By:ELISHA SAINZ MD
[2017-10-29] MEDS: RIVAROXABAN 15 MG TABLET PO SCH (17:27)
[2017-10-30] MEDS: CHLORHEXIDINE GLUCONATE 4% CLEANSER FOR DECOLONIZATION TP SCH
[2017-10-30] MEDS ORDERED: PT OWN MED DRAWER 7, Y5N ONE ×4 (02:58→17:46)
[2017-10-30] MEDS: MEROPENEM 500 MG in DEXTROSE 5%-WATER 100 ML IVPB SCH ×2 (03:00→10:16)
[2017-10-30] MEDS ORDERED: LEVOTHYROXINE NA 100 MCG TABLET (FP) ONE (04:20)
[2017-10-30] MEDS ORDERED: LEVOTHYROXINE NA 75 MCG TABLET (FP) ONE (04:20)
[2017-10-30 06:02] LABS: HEMATOCRIT 27.9 % (35.4-49); HEMOGLOBIN 10.3 GM/dL (11.7-16.9); MCH 38.5 pg (25.7-33.7); MCHC 36.8 g/dl (32.0-35.9); MEAN CELL VOLUME 104.7 fl (80-96); MEAN PLT VOLUME 8.6 fl (7.5-11.1); PLATELET COUNT 124 K/MM3 (134-434); RBC 2.67 M/mm3 (4.00-5.60); RDW 15.7 % (11.9-15.9); WHITE BLOOD COUNT 6.1 K/mm3 (4.0-10.0)
[2017-10-30] MEDS: NAPH,MB-DB/K PH,MBDB POWDER PACKET PO SCH ×3 (06:26→21:55)
[2017-10-30] MEDS: LEVOTHYROXINE 100 MCG, LEVOTHYROXINE 75 MCG PO SCH (06:26)
[2017-10-30] MEDS: INSULIN SLIDING SCALE (NOVOLOG) 1 VIAL SQ SCH ×4 (06:31→21:53)
[2017-10-30 06:44] LABS: ALBUMIN 2.2 g/dl (3.4-5.0); ANION GAP 6 MMOL/L (8-16); BLOOD UREA NITROGEN 22 mg/dL (7-18); CALCIUM 7.6 mg/dL (8.5-10.1); CHLORIDE 110 mmol/L (98-107); CO2 27 mmol/L (21-32); GLUCOSE,RANDOM 119 mg/dL (74-106); MAGNESIUM 2.2 mg/dL (1.8-2.4); PHOSPHOROUS 1.3 mg/dL (2.5-4.9); SGOT/AST 26 U/L (15-37); SODIUM 143 mmol/L (136-145)
[2017-10-30 06:47] LABS: ALK PHOS 78 U/L (45-117); BILIRUBIN,TOTAL 0.7 mg/dL (0.2-1.0); SGPT/ALT 28 U/L (12-78); TOT PROT 5.3 g/dl (6.4-8.2)
--- NOTE | 2017-10-30 07:56 | PN ---
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, Physician Chief Complaint: Pt A&Ox3; no pain; not short of breath. History of Present Illness: Mr. Bains is a 77 you white male w/ pmh of dementia, GERD, HTN, HLD, afib, hypothyroidism, PH, DMII, known UTI on day 12 of 31 day course of macrobid who presents for evaluation of fever to 102.8 despite tylenol 650 and brown/margaret appearing urine. Patient reportedly at baseline per NH staff however concern for sepsis prompted transfer to ED. - Current Medication List Current Medications: Active Medications Atenolol (Tenormin -) 100 mg PO DAILY [facility] Chlorhexidine Gluconate (Hibiclens For Decolonization -) 1 applic TP HS [facility] Last Admin: 10/30/17 00:00 Dose: 1 applic Digoxin (Lanoxin -) 0.125 mg PO DAILY [facility] Last Admin: 10/29/17 09:58 Dose: 0.125 mg Sodium Chloride (Normal Saline -) 1,000 mls @ 100 mls/hr IV ASDIR [facility] Last Admin: 10/30/17 00:00 Dose: 100 mls/hr Meropenem 500 mg/ Dextrose 100 mls @ 200 mls/hr IVPB Q8H-IV [facility] Last Admin: 10/30/17 03:00 Dose: 200 mls/hr Insulin Aspart (Novolog Vial Sliding Scale -) 1 vial SQ [facility]; Protocol Last Admin: 10/30/17 06:31 Dose: Not Given Levothyroxine Sodium 100 mcg/ (Levothyroxine Sodium 75 mcg) 175 mcg PO DAILY@ 0700 [facility] Last Admin: 10/30/17 06:26 Dose: 175 mcg Mupirocin (Bactroban Ointment (For Decolonization) -) 1 applic NS BID [facility] Stop: 11/01/17 09:59 Last Admin: 10/29/17 21:38 Dose: 1 applic Pantoprazole Sodium (Protonix Iv) 40 mg IVPUSH DAILY [facility] Last Admin: 10/29/17 09:59 Dose: 40 mg Potassium Phos/Sodium Phos (Phos-Nak Packet -) 1 packet PO TID [facility] Last Admin: 10/30/17 06:26 Dose: 1 packet Rivaroxaban (Xarelto -) 15 mg PO DAILY@1800 [facility] Last Admin: 10/29/17 17:27 Dose: 15 mg - Objective Vital Signs: Vital Signs Temperature 99.4 F 10/30/17 06:00 Pulse Rate 105 H 10/30/17 06:00 Respiratory Rate 24 10/30/17 06:00 Blood Pressure 128/93 10/30/17 06:00 O2 Sat by Pulse Oximetry (%) 98 10/29/17 21:45 Constitutional: Yes: Calm Eyes: Yes: WNL HENT: Yes: WNL Neck: Yes: WNL Cardiovascular: Yes: Tachycardia, Pulse Irregular Respiratory: Yes: Regular Gastrointestinal: Yes: Soft ...Rectal Exam: Yes: Deferred Genitourinary: No: Anuria Musculoskeletal: Yes: Muscle Weakness Extremities: Yes: Cool Edema: No Peripheral Pulses WNL: No Peripheral Pulses: Left Doralis Pedis: 1+, Right Dorsalis Pedis: 1+ Integumentary: Yes: WNL Neurological: Yes: Alert, Oriented, Weakness Psychiatric: Yes: Alert, Oriented Labs: CBC, BMP 10/30/17 05:30 10/30/17 05:30 INR, PTT INR 1.43 (0.83-1.09) H 10/29/17 05:30 Abnormal Lab Results 10/29/17 10/29/17 10/30/17 05:30 09:00 05:30 WBC 18.2 H RBC 3.23 L 2.67 L Hgb 10.0 L 10.3 L Hct 30.0 L 27.9 L MCV 104.7 H MCH 38.5 H D MCHC 36.8 H RDW 16.1 H Plt Count 132 L 124 L Chloride Anion Gap BUN Random Glucose Calcium Phosphorus 1.4 L Total Protein Albumin 10/30/17 05:30 WBC RBC Hgb Hct MCV MCH MCHC RDW Plt Count Chloride 110 H Anion Gap 6 L BUN 22 H Random Glucose 119 H D Calcium 7.6 L Phosphorus 1.3 L Total Protein 5.3 L Albumin 2.2 L - ....Imaging Other: Image Reviewed (telemetry: AF; periods of rapid ventricular response) Problem List - Problems (1) History of aortic valve replacement with bioprosthetic valve Assessment/Plan: ECHO: prosthetic Aov; cannot r/o veg on tricuspid valve; likely torn cordae tendonae.. On antibiotics per ID; f/u clinical status (now off vasopressors). Blood cultures +. Consider MERLE if intractable bacteremia and/or fever. Keep Mg 2-2.4, K 4-4.5. Keep PO4 2.5-4.9 (presently low).. Code(s): Z95.3 - PRESENCE OF XENOGENIC HEART VALVE (2) Hematuria Code(s): R31.9 - HEMATURIA, UNSPECIFIED Qualifiers: Hematuria type: gross Qualified Code(s): R31.0 - Gross hematuria (3) Septic shock Assessment/Plan: On antibiotics. Fluids. F/u cultures. No longer on pressors. Code(s): A41.9 - SEPSIS, UNSPECIFIED ORGANISM; R65.21 - SEVERE SEPSIS WITH SEPTIC SHOCK (4) Atrial fibrillation Assessment/Plan: Now to start atenolol for BP and HR control. Will discontinue lanoxin (normal LVEF; now on atenolol). Anticoagulation: on rivaroxaban. Code(s): I48.91 - UNSPECIFIED ATRIAL FIBRILLATION
[2017-10-30] MEDS: SODIUM CHLORIDE 1,000 ML IV SCH ×3 (08:50→21:45)
[2017-10-30] MEDS ORDERED: ATENOLOL 50 MG TABLET (FP) PO SCH (10:00)
[2017-10-30] MEDS ORDERED: METOPROLOL TARTRATE 5 MG/5 ML VIAL IVPUSH PRN ×2 (10:08→15:58)
[2017-10-30] MEDS: PANTOPRAZOLE SODIUM 40 MG VIAL IVPUSH SCH (10:14)
[2017-10-30] MEDS: MUPIROCIN 2% TOPICAL OINTMENT FOR DECOLONIZATION NS SCH (10:16)
--- NOTE | 2017-10-30 10:20 | PN ---
Teaching Attending Note Name of Resident: Kathrine Boykin ATTENDING PHYSICIAN STATEMENT I saw and evaluated the patient. I reviewed the resident's note and discussed the case with the resident. I agree with the resident's findings and plan as documented. SUBJECTIVE: Pt seen and examined in the ICU. Remains off pressors. No fevers or chills. Heart rates better controlled. OBJECTIVE: Vital Signs Period Temp Pulse Resp BP Sys/Avelar Pulse Ox Last 24 Hr 98 F-99.5 F 95-140 18-24 118-146/76-96 97-98 Intake & Output 10/27/17 10/28/17 10/29/17 10/30/17 23:59 23:59 23:59 23:59 Intake Total 2850 3515 2835 1700 Output Total 5200 1800 1650 700 Balance -2350 1715 1185 1000 Weight 86.183 kg 79.974 kg 80.286 kg 80.1 kg Gen: mildly tachypneic at rest Heart: irregular Lung: decreased breath sounds at the bases Abd: soft, nontender Ext: trace edema CBC, BMP 10/30/17 05:30 10/30/17 05:30 Active Medications Atenolol (Tenormin -) 100 mg PO DAILY [facility] Last Admin: 10/30/17 10:15 Dose: 100 mg Chlorhexidine Gluconate (Hibiclens For Decolonization -) 1 applic TP HS [facility] Last Admin: 10/30/17 00:00 Dose: 1 applic Chlorpromazine HCl (Thorazine -) 25 mg PO ONCE ONE Stop: 10/30/17 11:01 Sodium Chloride (Normal Saline -) 1,000 mls @ 100 mls/hr IV ASDIR [facility] Last Admin: 10/30/17 08:50 Dose: 100 mls/hr Meropenem 500 mg/ Dextrose 100 mls @ 200 mls/hr IVPB Q8H-IV [facility] Last Admin: 10/30/17 10:16 Dose: 200 mls/hr Insulin Aspart (Novolog Vial Sliding Scale -) 1 vial SQ ACHS [facility]; Protocol Last Admin: 10/30/17 06:31 Dose: Not Given Levothyroxine Sodium 100 mcg/ (Levothyroxine Sodium 75 mcg) 175 mcg PO DAILY@ 0700 [facility] Last Admin: 10/30/17 06:26 Dose: 175 mcg Metoprolol Tartrate (Lopressor Injection -) 5 mg IVPUSH Q4H PRN PRN Reason: HYPERTENSION Mupirocin (Bactroban Ointment (For Decolonization) -) 1 applic NS BID [facility] Stop: 11/01/17 09:59 Last Admin: 10/30/17 10:16 Dose: 1 applic Pantoprazole Sodium (Protonix Iv) 40 mg IVPUSH DAILY [facility] Last Admin: 10/30/17 10:14 Dose: 40 mg Potassium Phos/Sodium Phos (Phos-Nak Packet -) 1 packet PO TID [facility] Last Admin: 10/30/17 06:26 Dose: 1 packet Rivaroxaban (Xarelto -) 15 mg PO DAILY@1800 [facility] Last Admin: 10/29/17 17:27 Dose: 15 mg ASSESSMENT AND PLAN: Polymicrobial Bacteremia UTI Hematuria Septic Shock resolving Acute Kidney Injury Lactic Acidosis +Troponins likely Demand Ischemia Atrial Fibrillation HTN Hyperlipidemia Hypothyroidism - broad spectrum antibiotics - f/u repeat cultures - monitor off pressors, maintain MAP >65 - rate control - continue anticoagulation - replete lytes - monitor urine output, creatinine - DVT/GI prophylaxis - can monitor on telemetry critical care time spent in reviewing chart, evaluating patient and formulating plan 35 min
--- NOTE | 2017-10-30 10:28 | PN ---
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 (short form) - Note 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: Patient is comfortable is with no acute distress, feeling better. Vital Signs Temperature 99.4 F 10/30/17 08:00 Pulse Rate 96 H 10/30/17 08:00 Respiratory Rate 19 10/30/17 08:00 Blood Pressure 146/96 10/30/17 08:00 O2 Sat by Pulse Oximetry (%) 97 10/30/17 09:00 CBCD WBC 6.1 K/mm3 (4.0-10.0) 10/30/17 05:30 RBC 2.67 M/mm3 (4.00-5.60) L 10/30/17 05:30 Hgb 10.3 GM/dL (11.7-16.9) L 10/30/17 05:30 Hct 27.9 % (35.4-49) L 10/30/17 05:30 MCV 104.7 fl (80-96) H 10/30/17 05:30 MCHC 36.8 g/dl (32.0-35.9) H 10/30/17 05:30 RDW 15.7 % (11.9-15.9) 10/30/17 05:30 Plt Count 124 K/MM3 (134-434) L 10/30/17 05:30 MPV 8.6 fl (7.5-11.1) 10/30/17 05:30 CMP Sodium 143 mmol/L (136-145) 10/30/17 05:30 Potassium 4.0 mmol/L (3.5-5.1) 10/30/17 05:30 Chloride 110 mmol/L (98-107) H 10/30/17 05:30 Carbon Dioxide 27 mmol/L (21-32) 10/30/17 05:30 Anion Gap 6 MMOL/L (8-16) L 10/30/17 05:30 BUN 22 mg/dL (7-18) H 10/30/17 05:30 Creatinine 1.0 mg/dL (0.7-1.3) 10/30/17 05:30 Creat Clearance w eGFR > 60 (>60) 10/30/17 05:30 Random Glucose 119 mg/dL (74-106) H D 10/30/17 05:30 Calcium 7.6 mg/dL (8.5-10.1) L 10/30/17 05:30 Total Bilirubin 0.7 mg/dL (0.2-1.0) 10/30/17 05:30 AST 26 U/L (15-37) 10/30/17 05:30 ALT 28 U/L (12-78) D 10/30/17 05:30 Alkaline Phosphatase 78 U/L (45-117) 10/30/17 05:30 Total Protein 5.3 g/dl (6.4-8.2) L 10/30/17 05:30 Albumin 2.2 g/dl (3.4-5.0) L 10/30/17 05:30 CARDIAC ENZYMES Creatine Kinase 246 IU/L (39-308) 10/28/17 12:19 Troponin I 0.12 ng/ml (0.00-0.05) H D 10/28/17 21:20 Current Medications Generic Name Dose Route Start Last Admin Trade Name Freq PRN Reason Stop Dose Admin Atenolol 100 mg 10/30/17 10:00 10/30/17 10:15 Tenormin - PO 100 mg DAILY [facility] Administration Chlorhexidine Gluconate 1 applic 10/27/17 22:00 10/30/17 00:00 Hibiclens For Decolonization - TP 1 applic HS [facility] Administration Chlorpromazine HCl 25 mg 10/30/17 11:00 Thorazine - PO 10/30/17 11:01 ONCE ONE Sodium Chloride 1,000 mls @ 100 mls/hr 10/27/17 08:30 10/30/17 08:50 Normal Saline - IV 100 mls/hr ASDIR [facility] Administration Meropenem 500 mg/ Dextrose 100 mls @ 200 mls/hr 10/27/17 11:00 10/30/17 10:16 IVPB 200 mls/hr Q8H-IV [facility] Administration Insulin Aspart 1 vial 10/27/17 16:30 10/30/17 06:31 Novolog Vial Sliding Scale - SQ Not Given ACHS [facility] Protocol Levothyroxine Sodium 100 mcg/ 175 mcg 10/28/17 07:00 10/30/17 06:26 Levothyroxine Sodium 75 mcg PO 175 mcg DAILY@0700 [facility] Administration Metoprolol Tartrate 5 mg 10/30/17 10:08 Lopressor Injection - IVPUSH Q4H PRN HYPERTENSION Mupirocin 1 applic 10/27/17 10:00 10/30/17 10:16 Bactroban Ointment (For Decolonization) - NS 11/01/17 09:59 1 applic BID [facility] Administration Pantoprazole Sodium 40 mg 10/27/17 10:00 10/30/17 10:14 Protonix Iv IVPUSH 40 mg DAILY [facility] Administration Potassium Phos/Sodium Phos 1 packet 10/29/17 14:00 10/30/17 06:26 Phos-Nak Packet - PO 1 packet TID [facility] Administration Rivaroxaban 15 mg 10/28/17 18:00 10/29/17 17:27 Xarelto - PO 15 mg DAILY@1800 [facility] Administration Home Medications Medication Instructions Recorded Atenolol [Tenormin -] 100 mg PO DAILY 10/27/17 Digoxin [Lanoxin -] 0.125 mg PO DAILY 10/27/17 Docusate Sodium [Colace] 300 mg PO HS 10/27/17 Hydrochlorothiazide 12.5 mg PO DAILY 10/27/17 Levothyroxine [Synthroid -] 175 mcg PO DAILY 10/27/17 Metformin HCl [Glucophage] 500 mg PO BID 10/27/17 Nitrofurantoin Macrocrystal 100 mg PO DAILY 10/27/17 [Nitrofurantoin] Nystatin Cream [Mycostatin Cream -] 1 applic TP BID 10/27/17 Ranitidine [Zantac -] 150 mg PO DAILY 10/27/17 Sennosides [Senna] 2 tab PO DAILY 10/27/17 Simvastatin 10 mg PO HS 10/27/17 Tamsulosin HCl [Flomax] 0.4 mg PO DAILY 10/27/17 carotid US: Moderate atherosclerotic disease, left greater than right, with stenoses in the 60-79% range involving the internal carotid arteries. Clinical correlation and follow-up studies recommended. Please see above discussion. PE: looks very pale, nice gentleman otherwise alert, awake CVS:Irregularly irregular, RATE OF HIGH 90, s1s2 POSITIVE Abdominal CT (10/27/17):1. Right nephrolithiasis with no evidence of hydronephrosis or obstructive uropathy. 2. Thick-walled urinary bladder containing calculi. Air is also noted within the bladder that may be the result of recent instrumentation. 3. Chavez catheter within prostatic urethra. Repositioning recommended. 4. Air within the right common femoral vein of uncertain etiology. 5. Fecal impaction. Chest X-Ray (10/27/17): Large heart. Congestive changes. Right line in place. No pneumothorax. ASSESSMENT AND PLAN: Patient is a 77 y/o male with PMHx of HTN, HLD, DM, afib, and stroke (2013 on AC, Xarelto) who presented from [facility] for fever, hypotension and Hematuria. #UTI: Proteus Mirabilis on iv meropenem continue # Septic Shock, s/p pressors, levo and vasopressors. # s/p Hematuria resolved s/p 3 way catheter CBI, Urology , # JET due to obstructive uropathy , improved # Elevated Troponins most likely due demand ischemia echo reviewed , and repeat Trops. was elevated. cardio consult # Atrial Fibrillation with rate controlled off Digoxin now, continue Xarelto 15mg now, was held prior due to bleeding # HTN now hypotension hold the BP meds.on pressors now. # HLD on statins continue # NIDDMII sliding scale with coverage # Hypothyroidism continue oral synthroid # CAD s/p CABG 2012: will hold ASA due to hematuria #CVA in 2014: Continue Simvastatin 10mg , on XArelto #Constipation:Patient at [place] on senna, and colace. # Hx of Dementia: Currently on no medications # BPH:Continue Flomax Prophylaxis:High risk. SCD's for DVT. on Xarelto GI Px: PPI Visit type - Emergency Visit Emergency Visit: Yes ED Registration Date: 10/27/17 Care time: The patient presented to the Emergency Department on the above date and was hospitalized for further evaluation of their emergent condition. - New Patient This patient is new to me today: No - Critical Care Critical Care patient: No - Discharge Referral Referred to [facility] Med P.C.: No
[2017-10-30] MEDS ORDERED: chlorproMAZINE HCL 25 MG TABLET PO ONE (11:00)
--- NOTE | 2017-10-30 11:05 | PN ---
Physical Exam: SUBJECTIVE: Patient is a 77 y/o male with a history of HTN, HLD, DM, afib, and stroke (2014 on AC) who is admitted for septic shock 2/2 to urosepsis. Patient rate better controlled overnight. Central line removed. No acute events. OBJECTIVE: Vital Signs Temperature 99.4 F 10/30/17 08:00 Pulse Rate 96 H 10/30/17 08:00 Respiratory Rate 19 10/30/17 08:00 Blood Pressure 146/96 10/30/17 08:00 O2 Sat by Pulse Oximetry (%) 97 10/30/17 09:00 GENERAL: Awake, alert, left facial droop HEAD: Normal with no signs of trauma. EYES: Pupils equal, round and reactive to light, extraocular movements intact LUNGS: Breath sounds equal, clear to auscultation bilaterally HEART: Regular rate and rhythm, without murmur, rub or gallop. ABDOMEN:soft, tenderness to lower abdominal palpation MUSCULOSKELETAL: L LE 0/5 LUE 3/5 forearm flexion, 0/5 shoulder abduction/ adduction, R extremities 5/5 LOWER EXTREMITIES: . No calf tenderness. No peripheral edema. SKIN: Warm, dry, normal turgor, no rashes or lesions noted. CBCD WBC 6.1 K/mm3 (4.0-10.0) 10/30/17 05:30 RBC 2.67 M/mm3 (4.00-5.60) L 10/30/17 05:30 Hgb 10.3 GM/dL (11.7-16.9) L 10/30/17 05:30 Hct 27.9 % (35.4-49) L 10/30/17 05:30 MCV 104.7 fl (80-96) H 10/30/17 05:30 MCHC 36.8 g/dl (32.0-35.9) H 10/30/17 05:30 RDW 15.7 % (11.9-15.9) 10/30/17 05:30 Plt Count 124 K/MM3 (134-434) L 10/30/17 05:30 MPV 8.6 fl (7.5-11.1) 10/30/17 05:30 CMP Sodium 143 mmol/L (136-145) 10/30/17 05:30 Potassium 4.0 mmol/L (3.5-5.1) 10/30/17 05:30 Chloride 110 mmol/L (98-107) H 10/30/17 05:30 Carbon Dioxide 27 mmol/L (21-32) 10/30/17 05:30 Anion Gap 6 MMOL/L (8-16) L 10/30/17 05:30 BUN 22 mg/dL (7-18) H 10/30/17 05:30 Creatinine 1.0 mg/dL (0.7-1.3) 10/30/17 05:30 Creat Clearance w eGFR > 60 (>60) 10/30/17 05:30 Calcium 7.6 mg/dL (8.5-10.1) L 10/30/17 05:30 Total Bilirubin 0.7 mg/dL (0.2-1.0) 10/30/17 05:30 AST 26 U/L (15-37) 10/30/17 05:30 ALT 28 U/L (12-78) D 10/30/17 05:30 Alkaline Phosphatase 78 U/L (45-117) 10/30/17 05:30 Total Protein 5.3 g/dl (6.4-8.2) L 10/30/17 05:30 Albumin 2.2 g/dl (3.4-5.0) L 10/30/17 05:30 Active Medications Atenolol (Tenormin -) 100 mg PO DAILY [facility] Last Admin: 10/30/17 10:15 Dose: 100 mg Chlorhexidine Gluconate (Hibiclens For Decolonization -) 1 applic TP HS [facility] Last Admin: 10/30/17 00:00 Dose: 1 applic Chlorpromazine HCl (Thorazine -) 25 mg PO ONCE ONE Stop: 10/30/17 11:01 Sodium Chloride (Normal Saline -) 1,000 mls @ 100 mls/hr IV [facility] Last Admin: 10/30/17 08:50 Dose: 100 mls/hr Meropenem 500 mg/ Dextrose 100 mls @ 200 mls/hr IVPB Q8H-IV [facility] Last Admin: 10/30/17 10:16 Dose: 200 mls/hr Insulin Aspart (Novolog Vial Sliding Scale -) 1 vial SQ ACHS [facility]; Protocol Last Admin: 10/30/17 06:31 Dose: Not Given Levothyroxine Sodium 100 mcg/ (Levothyroxine Sodium 75 mcg) 175 mcg PO DAILY@ 0700 [facility] Last Admin: 10/30/17 06:26 Dose: 175 mcg Metoprolol Tartrate (Lopressor Injection -) 5 mg IVPUSH Q4H PRN PRN Reason: HYPERTENSION Mupirocin (Bactroban Ointment (For Decolonization) -) 1 applic NS BID [facility] Stop: 11/01/17 09:59 Last Admin: 10/30/17 10:16 Dose: 1 applic Pantoprazole Sodium (Protonix Iv) 40 mg IVPUSH DAILY [facility] Last Admin: 10/30/17 10:14 Dose: 40 mg Potassium Phos/Sodium Phos (Phos-Nak Packet -) 1 packet PO TID [facility] Last Admin: 10/30/17 06:26 Dose: 1 packet Rivaroxaban (Xarelto -) 15 mg PO DAILY@1800 [facility] Last Admin: 10/29/17 17:27 Dose: 15 mg ASSESSMENT/PLAN: Patient is a 77 y/o male with a history of HTN, HLD, DM, afib, and stroke (2013 on AC) who presented from [facility] for septic shock. #Cardiac septic shock hypotension : resolved - Echo: LV size normal and function normal, EF normal. aortic dilation, bioprosthetic aortic valve, moderate tricuspid regurg, mobile mass - f/u Dr. Tilley afib - xarelto 15 mg for CrCl at 44 - atenolol 100 mg daily - lopressor 5 mg IV push q4 prn Hr >110 tropinemia - likely 2/2 to demand ischemia - trend down, last .22 #Renal JET: resolved - likely secondary to septic shock - FeNa 1.3% intrinsic renal # traumatic sarah - syrian 16 in, no further hematuria - patient has a chronic sarah - f/u Dr. Ramos #Infectious Disease possible urosepsis - Meropenem 500 mg q 8h (day 4) - UA negative for esterase and WBC - blood cx-staph coag negative and non lactose fermenting gnb - Ucx- proteus - cdiff negative - if continues to be bactermic and feverish, order MERLE to r/o endocarditis - f/u Dr. Dubon #GI ppx - Pantoprazole 40 mg IV push daily #Endocrine hypothyroidism - Levothyroxine 175 mcg po daily DM - SS - last A1C 5.6 from September #Hematology anemia - s/p 1 unit, hgb stable DVT ppx - Xarelto - SCD's FEN - NS @ 100 - K and phosp repleted - Keep Mg from 2-2.5, K 4-4.5, Phosp 4-4.9 - pureed diet with ensure (chocolate), if problems with swallowing switch to clear liquids - I : 1395 O : 1000 B : 395 - thorazine one time dose for hiccups Dispo: transfer to tele Visit type - Emergency Visit Emergency Visit: No - New Patient This patient is new to me today: No - Critical Care Critical Care patient: Yes Total Critical Care Time (in minutes): 40 Critical Care Statement: The care of this patient involved high complexity decision making to prevent further life threatening deterioration of the patient 's condition and/or to evaluate & treat vital organ system(s) failure or risk of failure.
--- NOTE | 2017-10-30 11:29 | PN ---
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, Physician History of Present Illness: Awake , alert Offers no complaints Afebrile WBC WNL BC SCN, Proteus sp Renal function improved Thrombocytopenic - Current Medication List Current Medications: Active Medications Atenolol (Tenormin -) 100 mg PO DAILY [facility] Last Admin: 10/30/17 10:15 Dose: 100 mg Chlorhexidine Gluconate (Hibiclens For Decolonization -) 1 applic TP HS [facility] Last Admin: 10/30/17 00:00 Dose: 1 applic Sodium Chloride (Normal Saline -) 1,000 mls @ 100 mls/hr IV ASDIR [facility] Last Admin: 10/30/17 08:50 Dose: 100 mls/hr Meropenem 500 mg/ Dextrose 100 mls @ 200 mls/hr IVPB Q8H-IV [facility] Last Admin: 10/30/17 10:16 Dose: 200 mls/hr Vancomycin HCl 1,000 mg/ (Dextrose) 250 mls @ 166.667 mls/hr IVPB Q12H [facility]; Protocol Insulin Aspart (Novolog Vial Sliding Scale -) 1 vial SQ ACHS [facility]; Protocol Last Admin: 10/30/17 06:31 Dose: Not Given Levothyroxine Sodium 100 mcg/ (Levothyroxine Sodium 75 mcg) 175 mcg PO DAILY@ 0700 [facility] Last Admin: 10/30/17 06:26 Dose: 175 mcg Metoprolol Tartrate (Lopressor Injection -) 5 mg IVPUSH Q4H PRN PRN Reason: HYPERTENSION Mupirocin (Bactroban Ointment (For Decolonization) -) 1 applic NS BID [facility] Stop: 11/01/17 09:59 Last Admin: 10/30/17 10:16 Dose: 1 applic Pantoprazole Sodium (Protonix Iv) 40 mg IVPUSH DAILY [facility] Last Admin: 10/30/17 10:14 Dose: 40 mg Potassium Phos/Sodium Phos (Phos-Nak Packet -) 1 packet PO TID [facility] Last Admin: 10/30/17 06:26 Dose: 1 packet Rivaroxaban (Xarelto -) 15 mg PO DAILY@1800 [facility] Last Admin: 10/29/17 17:27 Dose: 15 mg - Objective Vital Signs: Vital Signs Temperature 99.4 F 10/30/17 08:00 Pulse Rate 88 10/30/17 10:00 Respiratory Rate 16 10/30/17 10:00 Blood Pressure 128/78 10/30/17 10:00 O2 Sat by Pulse Oximetry (%) 97 10/30/17 09:00 Constitutional: Yes: No Distress Eyes: Yes: Conjunctiva Clear Cardiovascular: Yes: Regular Rate and Rhythm, S1, S2 Respiratory: Yes: CTA Bilaterally Gastrointestinal: Yes: Normal Bowel Sounds, Soft. No: Tenderness Edema: Yes Edema: LLE: 1+, RLE: 1+ Labs: CBC, BMP 10/30/17 05:30 10/30/17 05:30 INR, PTT INR 1.43 (0.83-1.09) H 10/29/17 05:30 Assessment/Plan Sepsis/ septic shock improved Polymicrobial bacteremia UTI/ possible sepsis secondary to UTI Lactic acidosis- resolved azotemia improved S/P AVR Await repeat BC Continue Meropenem/ Vancomycin
[2017-10-30] MEDS ORDERED: INSULIN (NOVOLOG) ASPART 100 UNITS/ML 10ML VIAL ONE ×2 (11:36→11:44)
[2017-10-30] MEDS: VANCOMYCIN 1 GM PREMIX - 1 GM/200 ML BAG IVPB SCH (12:56)
[2017-10-30] MEDS: RIVAROXABAN 15 MG TABLET PO SCH (17:49)
[2017-10-30] MEDS: MEROPENEM 500 MG in DEXTROSE 5%-WATER - 100 ML IVPB SCH (17:49)
[2017-10-30] MEDS ORDERED: MUPIROCIN 2% TOPICAL OINTMENT FOR DECOLONIZATION NS SCH (22:00)
[2017-10-30] MEDS ORDERED: CHLORHEXIDINE GLUCONATE 4% CLEANSER FOR DECOLONIZATION TP SCH (22:00)
[2017-10-31] MEDS: VANCOMYCIN 1 GM PREMIX - 1 GM/200 ML BAG IVPB SCH ×2 (01:29→11:44)
[2017-10-31] MEDS: MEROPENEM 500 MG in DEXTROSE 5%-WATER - 100 ML IVPB SCH ×3 (03:41→17:47)
[2017-10-31] MEDS ORDERED: LEVOTHYROXINE NA 75 MCG TABLET (FP) ONE (06:53)
[2017-10-31] MEDS ORDERED: LEVOTHYROXINE NA 100 MCG TABLET (FP) ONE (06:53)
[2017-10-31] MEDS: INSULIN SLIDING SCALE (NOVOLOG) 1 VIAL SQ SCH ×4 (06:55→21:09)
[2017-10-31] MEDS: NAPH,MB-DB/K PH,MBDB POWDER PACKET PO SCH ×3 (06:55→21:09)
[2017-10-31] MEDS: LEVOTHYROXINE 100 MCG, LEVOTHYROXINE 75 MCG PO SCH (06:56)
[2017-10-31 08:49] LABS: CHLORIDE 110 mmol/L (98-107); POTASSIUM 3.8 mmol/L (3.5-5.1); SODIUM 142 mmol/L (136-145)
[2017-10-31 08:57] LABS: ALBUMIN 2.1 g/dl (3.4-5.0); ALK PHOS 66 U/L (45-117); ANION GAP 9 MMOL/L (8-16); BILIRUBIN,TOTAL 0.4 mg/dL (0.2-1.0); BLOOD UREA NITROGEN 24 mg/dL (7-18); CALCIUM 7.6 mg/dL (8.5-10.1); CO2 23 mmol/L (21-32); CREATININE 0.8 mg/dL (0.7-1.3); GLUCOSE,RANDOM 100 mg/dL (74-106); PHOSPHOROUS 1.6 mg/dL (2.5-4.9); SGOT/AST 27 U/L (15-37); SGPT/ALT 31 U/L (12-78); TOT PROT 4.8 g/dl (6.4-8.2)
[2017-10-31 09:05] LABS: HEMATOCRIT 29.8 % (35.4-49); HEMOGLOBIN 9.9 GM/dL (11.7-16.9); MCH 30.4 pg (25.7-33.7); MCHC 33.1 g/dl (32.0-35.9); MEAN CELL VOLUME 91.9 fl (80-96); MEAN PLT VOLUME 8.5 fl (7.5-11.1); PLATELET COUNT 113 K/MM3 (134-434); RBC 3.24 M/mm3 (4.00-5.60); RDW 15.5 % (11.9-15.9); WHITE BLOOD COUNT 5.2 K/mm3 (4.0-10.0)
[2017-10-31] MEDS: PANTOPRAZOLE SODIUM 40 MG VIAL IVPUSH SCH (10:03)
[2017-10-31] MEDS: ATENOLOL 50 MG TABLET (FP) PO SCH (10:04)
--- NOTE | 2017-10-31 10:29 | PN ---
Physical Exam: SUBJECTIVE: Patient seen and examined. Few PVCs on monitor. Having hiccups, Pt said he connors been having hiccups for over 4 years now. Received medication to help yesterday. Lucid and conversational, no other c/o. Able to eat. Feels improved. OBJECTIVE: Vital Signs Period Temp Pulse Resp BP Sys/Avelar Pulse Ox Last 24 Hr 97.6 F-98.7 F 80-98 17-22 116-139/68-81 97-100 Vital Signs Temp 98.4 F 10/31/17 06:00 Pulse 98 H 10/31/17 06:00 Resp 20 10/31/17 06:00 BP 116/70 10/31/17 06:00 Pulse Ox 100 10/30/17 20:27 Intake & Output 10/30/17 10/30/17 10/31/17 11:59 23:59 11:59 Intake Total 1700 1500 2240 Output Total 700 1350 Balance 4004 631 4022 Weight 80.1 kg Intake: IV 8500 472 0064 Normal Saline - 1,000 ml 1200 950 @ 100 mls/hr IV ASDIR [facility] Rx#:[id number] Normal Saline - 1,000 ml 1200 @ 100 mls/hr IV ASDIR [facility] Rx#:[id number] IVPB 100 200 300 Oral 400 350 740 Output: Urine 700 1350 Sarah 700 1350 Other: Voiding Method Indwelling Catheter Indwelling Catheter Toilet Bowel Movement Yes: Medium Loose # Bowel Movements 1 Weight Measurement Method Built in [facility] GENERAL: The patient is awake, alert, and fully oriented, in no acute respiratory /painful distress. HEAD: Normal with no signs of trauma. EYES: PERRL, extraocular movements intact, sclera anicteric, conjunctiva clear. No ptosis. ENT: Ears normal, nares patent, oropharynx clear without exudates, moist mucous membranes. NECK: supple. LUNGS: Breath sounds equal, clear to auscultation bilaterally, no wheezes, no crackles,Unable to assess lungs posteriorly HEART: Regular rate and rhythm, S1, S2 ABDOMEN: Soft, nontender, nondistended, normoactive bowel sounds, EXTREMITIES: 2+ pulses, warm, well-perfused, no edema. LUE 3/5, LLE-0/5 NEUROLOGICAL: Cranial nerves II through XII grossly intact. Normal speech, gait not observed. PSYCH: Normal mood, normal affect. CBC, BMP 10/31/17 06:40 10/31/17 06:40 Laboratory Results - last 24 hr 10/27/17 10/30/17 10/30/17 13:14 11:28 16:33 WBC RBC Hgb Hct MCV MCH MCHC RDW Plt Count MPV Sodium Potassium Chloride Carbon Dioxide Anion Gap BUN Creatinine Creat Clearance w eGFR POC Glucometer [phone] Random Glucose Calcium Phosphorus Magnesium Total Bilirubin AST ALT Alkaline Phosphatase Total Protein Albumin Blood Type AB NEGATIVE Antibody Screen Positive H Prewarmed Antibody Srcn Negative Antibody Identification Cold antibody Crossmatch See Detail 10/30/17 10/31/17 10/31/17 21:52 06:14 06:40 WBC 5.2 RBC 3.24 L Hgb 9.9 L Hct 29.8 L MCV 91.9 D MCH 30.4 D MCHC 33.1 RDW 15.5 Plt Count 113 L MPV 8.5 Sodium Potassium Chloride Carbon Dioxide Anion Gap BUN Creatinine Creat Clearance w eGFR POC Glucometer 125 114 Random Glucose Calcium Phosphorus Magnesium Total Bilirubin AST ALT Alkaline Phosphatase Total Protein Albumin Blood Type Antibody Screen Prewarmed Antibody Srcn Antibody Identification Crossmatch 10/31/17 06:40 WBC RBC Hgb Hct MCV MCH MCHC RDW Plt Count MPV Sodium 142 Potassium 3.8 Chloride 110 H Carbon Dioxide 23 Anion Gap 9 BUN 24 H Creatinine 0.8 Creat Clearance w eGFR > 60 POC Glucometer Random Glucose 100 Calcium 7.6 L Phosphorus 1.6 L D Magnesium 2.0 Total Bilirubin 0.4 AST 27 ALT 31 Alkaline Phosphatase 66 D Total Protein 4.8 L Albumin 2.1 L Blood Type Antibody Screen Prewarmed Antibody Srcn Antibody Identification Crossmatch Active Medications Generic Name Dose Route Start Last Admin Trade Name Freq PRN Reason Stop Dose Admin Atenolol 100 mg 10/31/17 10:00 10/31/17 10:04 Tenormin - PO 100 mg DAILY [facility] Administration Vancomycin HCl 1 gm in 200 mls @ 133.333 mls/hr 10/30/17 12:00 10/31/17 01:29 Vancomycin 1 Gm Premix - IVPB 133.333 mls/hr BID@0000,1200 [facility] Administration Protocol Meropenem 500 mg/ Dextrose 100 mls @ 200 mls/hr 10/30/17 18:00 10/31/17 10:03 IVPB 200 mls/hr Q8H-IV [facility] Administration Sodium Chloride 1,000 mls @ 100 mls/hr 10/30/17 15:58 10/30/17 21:45 Normal Saline - IV Not Given ASDIR [facility] Insulin Aspart 1 vial 10/30/17 16:30 10/31/17 06:55 Novolog Vial Sliding Scale - SQ Not Given ACHS [facility] Protocol Levothyroxine Sodium 100 mcg/ 175 mcg 10/31/17 07:00 10/31/17 06:56 Levothyroxine Sodium 75 mcg PO 175 mcg DAILY@0700 [facility] Administration Metoprolol Tartrate 5 mg 10/30/17 15:58 Lopressor Injection - IVPUSH Q4H PRN HYPERTENSION Pantoprazole Sodium 40 mg 10/31/17 10:00 10/31/17 10:03 Protonix Iv IVPUSH 40 mg DAILY [facility] Administration Potassium Phos/Sodium Phos 1 packet 10/30/17 22:00 10/31/17 06:55 Phos-Nak Packet - PO 1 packet TID [facility] Administration Rivaroxaban 15 mg 10/30/17 18:00 10/30/17 17:49 Xarelto - PO 15 mg DAILY@1800 [facility] Administration Microbiology 10/27/17 05:45 Blood - Peripheral Venous Blood Culture - Final Staph Capitis Subsp Ureolyticu 10/29/17 10:00 Blood - Peripheral Venous Blood Culture - Preliminary NO GROWTH OBTAINED AFTER 48 HOURS, INCUBATION TO CONTINUE FOR 3 DAYS. 10/29/17 09:45 Blood - Peripheral Venous Blood Culture - Preliminary NO GROWTH OBTAINED AFTER 48 HOURS, INCUBATION TO CONTINUE FOR 3 DAYS. 10/27/17 05:45 Blood - Peripheral Venous Blood Culture - Preliminary Proteus Mirabilis Staphylococcus Coagulase Neg ASSESSMENT/PLAN: Patient is a 77 y/o M with a history of HTN, HLD, DM, afib, and stroke (2013 on AC) who presented from [facility] with septic shock secondary to UTI. #septic shock secondary to UTI -hypotension : s/p vasopressors and fluids, resolved - Echo: LV size normal and function normal, EF normal. aortic dilation, bioprosthetic aortic valve, moderate tricuspid regurg, mobile mass - f/u Dr. Tilley #UTI - Meropenem 500 mg q 8h (day 5) - blood cx-Staph Capitis Subsp Ureolyticu - Ucx- proteus - cdiff negative - f/u Dr. Dubon #afib - xarelto 15 mg for CrCl at 44 - atenolol 100 mg daily - lopressor 5 mg IV push q4 prn Hr >110 # tropinemia - likely 2/2 to demand ischemia - Peaked, last 0.12 # JET: resolved - likely secondary to septic shock - FeNa 1.3% intrinsic renal # Hematuria -Likely due to traumatic sarah - turkmen 16 in, no more hematuria, draining clear urine - patient has a chronic sarah - f/u Dr. Ramos # hypothyroidism - Levothyroxine 175 mcg po daily # DM - ISS - last A1C 5.6 from September # anemia - s/p 1 unit, hgb stable # ppx - Pantoprazole 40 mg IV push daily - xarelto 15 mg for CrCl at 44 #Hiccups - Iv reglan 10mg stat #FEN - No standing fluids - 15mm Na phosp, with neutraphosph 1 packet tid given - Keep Mg from 2-2.5, K 4-4.5, Phosp 4-4.9 - pureed diet with ensure (chocolate), if problems with swallowing switch to clear liquids #Dispo: tele Visit type - Emergency Visit Emergency Visit: Yes ED Registration Date: 10/27/17 Care time: The patient presented to the Emergency Department on the above date and was hospitalized for further evaluation of their emergent condition. - New Patient This patient is new to me today: Yes Date on this admission: 10/31/17 - Critical Care Critical Care patient: No - Discharge Referral Referred to [facility] Med P.C.: No
[2017-10-31] MEDS ORDERED: METOCLOPRAMIDE HCL INJECTION 10 MG/2 ML VIAL IVPUSH ONE (11:13)
--- NOTE | 2017-10-31 13:09 | PN ---
Teaching Attending Note Name of Resident: Ladan Garcia ATTENDING PHYSICIAN STATEMENT I saw and evaluated the patient. I reviewed the resident's note and discussed the case with the resident. I agree with the resident's findings and plan as documented. SUBJECTIVE: Patient is feeling better , but c/o having hiccups. OBJECTIVE: Vital Signs Temperature 98.7 F 10/31/17 10:00 Pulse Rate 88 10/31/17 10:00 Respiratory Rate 20 10/31/17 10:00 Blood Pressure 120/77 10/31/17 10:00 O2 Sat by Pulse Oximetry (%) 100 10/30/17 20:27 CBCD WBC 5.2 K/mm3 (4.0-10.0) 10/31/17 06:40 RBC 3.24 M/mm3 (4.00-5.60) L 10/31/17 06:40 Hgb 9.9 GM/dL (11.7-16.9) L 10/31/17 06:40 Hct 29.8 % (35.4-49) L 10/31/17 06:40 MCV 91.9 fl (80-96) D 10/31/17 06:40 MCHC 33.1 g/dl (32.0-35.9) 10/31/17 06:40 RDW 15.5 % (11.9-15.9) 10/31/17 06:40 Plt Count 113 K/MM3 (134-434) L 10/31/17 06:40 MPV 8.5 fl (7.5-11.1) 10/31/17 06:40 CMP Sodium 142 mmol/L (136-145) 10/31/17 06:40 Potassium 3.8 mmol/L (3.5-5.1) 10/31/17 06:40 Chloride 110 mmol/L (98-107) H 10/31/17 06:40 Carbon Dioxide 23 mmol/L (21-32) 10/31/17 06:40 Anion Gap 9 MMOL/L (8-16) 10/31/17 06:40 BUN 24 mg/dL (7-18) H 10/31/17 06:40 Creatinine 0.8 mg/dL (0.7-1.3) 10/31/17 06:40 Creat Clearance w eGFR > 60 (>60) 10/31/17 06:40 Random Glucose 100 mg/dL (74-106) 10/31/17 06:40 Calcium 7.6 mg/dL (8.5-10.1) L 10/31/17 06:40 Total Bilirubin 0.4 mg/dL (0.2-1.0) 10/31/17 06:40 AST 27 U/L (15-37) 10/31/17 06:40 ALT 31 U/L (12-78) 10/31/17 06:40 Alkaline Phosphatase 66 U/L (45-117) D 10/31/17 06:40 Total Protein 4.8 g/dl (6.4-8.2) L 10/31/17 06:40 Albumin 2.1 g/dl (3.4-5.0) L 10/31/17 06:40 CARDIAC ENZYMES Creatine Kinase 246 IU/L (39-308) 10/28/17 12:19 Troponin I 0.12 ng/ml (0.00-0.05) H D 10/28/17 21:20 Current Medications Generic Name Dose Route Start Last Admin Trade Name Freq PRN Reason Stop Dose Admin Atenolol 100 mg 10/31/17 10:00 10/31/17 10:04 Tenormin - PO 100 mg DAILY [facility] Administration Vancomycin HCl 1 gm in 200 mls @ 133.333 mls/hr 10/30/17 12:00 10/31/17 11:44 Vancomycin 1 Gm Premix - IVPB 133.333 mls/hr BID@0000,1200 [facility] Administration Protocol Meropenem 500 mg/ Dextrose 100 mls @ 200 mls/hr 10/30/17 18:00 10/31/17 10:03 IVPB 200 mls/hr Q8H-IV [facility] Administration Sodium Chloride 1,000 mls @ 100 mls/hr 10/30/17 15:58 10/30/17 21:45 Normal Saline - IV Not Given ASDIR [facility] Sodium Phosphate 15 mm/ Sodium 255 mls @ 62.5 mls/hr 10/31/17 14:00 Chloride IVPB 10/31/17 18:04 ONCE ONE Insulin Aspart 1 vial 10/30/17 16:30 10/31/17 11:59 Novolog Vial Sliding Scale - SQ 2 units ACHS [facility] Administration Protocol Levothyroxine Sodium 100 mcg/ 175 mcg 10/31/17 07:00 09/02/18 06:56 Levothyroxine Sodium 75 mcg PO 175 mcg DAILY@0700 [facility] Administration Metoprolol Tartrate 5 mg 10/30/17 15:58 Lopressor Injection - IVPUSH Q4H PRN HYPERTENSION Pantoprazole Sodium 40 mg 10/31/17 10:00 10/31/17 10:03 Protonix Iv IVPUSH 40 mg DAILY [facility] Administration Potassium Phos/Sodium Phos 1 packet 10/30/17 22:00 10/31/17 06:55 Phos-Nak Packet - PO 1 packet TID [facility] Administration Rivaroxaban 15 mg 10/30/17 18:00 10/30/17 17:49 Xarelto - PO 15 mg DAILY@1800 [facility] Administration Home Medications Medication Instructions Recorded Atenolol [Tenormin -] 100 mg PO DAILY 10/27/17 Digoxin [Lanoxin -] 0.125 mg PO DAILY 10/27/17 Docusate Sodium [Colace] 300 mg PO HS 10/27/17 Hydrochlorothiazide 12.5 mg PO DAILY 10/27/17 Levothyroxine [Synthroid -] 175 mcg PO DAILY 10/27/17 Metformin HCl [Glucophage] 500 mg PO BID 10/27/17 Nitrofurantoin Macrocrystal 100 mg PO DAILY 10/27/17 [Nitrofurantoin] Nystatin Cream [Mycostatin Cream -] 1 applic TP BID 10/27/17 Ranitidine [Zantac -] 150 mg PO DAILY 10/27/17 Sennosides [Senna] 2 tab PO DAILY 10/27/17 Simvastatin 10 mg PO HS 10/27/17 Tamsulosin HCl [Flomax] 0.4 mg PO DAILY 10/27/17 Microbiology 10/27/17 05:45 Blood - Peripheral Venous Blood Culture - Final Staph Capitis Subsp Ureolyticu 10/29/17 10:00 Blood - Peripheral Venous Blood Culture - Preliminary NO GROWTH OBTAINED AFTER 48 HOURS, INCUBATION TO CONTINUE FOR 3 DAYS. 10/29/17 09:45 Blood - Peripheral Venous Blood Culture - Preliminary NO GROWTH OBTAINED AFTER 48 HOURS, INCUBATION TO CONTINUE FOR 3 DAYS. 10/27/17 05:45 Blood - Peripheral Venous Blood Culture - Preliminary Proteus Mirabilis Staphylococcus Coagulase Neg 10/27/17 07:59 Urine - Urine Clean Catch Urine Culture - Final Proteus Mirabilis 10/27/17 11:00 Stool Clostridium difficile Antigen (CAREN) - Final 10/27/17 11:00 Stool Clostridium difficile Toxin Assay - Final ECHO: prosthetic Aov; cannot r/o veg on tricuspid valve; likely torn cordae tendonae.. carotid US: Moderate atherosclerotic disease, left greater than right, with stenoses in the 60-79% range involving the internal carotid arteries. Clinical correlation and follow-up studies recommended. Please see above discussion. PE:nice gentleman , alert, awake CVS:regularly- regular ,rate of 88, positive for click Abdominal CT (10/27/17):1. Right nephrolithiasis with no evidence of hydronephrosis or obstructive uropathy. 2. Thick-walled urinary bladder containing calculi. Air is also noted within the bladder that may be the result of recent instrumentation. 3. Chavez catheter within prostatic urethra. Repositioning recommended. 4. Air within the right common femoral vein of uncertain etiology. 5. Fecal impaction. Chest X-Ray (10/27/17): Large heart. Congestive changes. Right line in place. No pneumothorax. ASSESSMENT AND PLAN: Patient is a 77 y/o male with PMHx of HTN, HLD, DM, afib, and stroke (2013 on AC, Xarelto) who presented from [facility] for fever, hypotension and Hematuria. # Echo positive for prosthetic AOV; cannot r/o veg on tricuspid valve; likely torn cordae tendonae, MERLE once the patient is more stable . #UTI: Proteus Mirabilis on iv meropenem continue # bacteremia due to Staph Capitis Subsp Ureolyticu sensitive to Vanco. and on Meropenem repeat blood culture is negative # s/p Septic Shock, s/p pressors, levo and vasopressors. # Hiccups: Protonix 40mg daily , will add one dose of Reglan po # s/p Hematuria resolved s/p 3 way catheter CBI, Urology , # JET due to obstructive uropathy , improved # Elevated Troponins most likely due demand ischemia echo reviewed , and repeat Trops. was elevated. cardio consult # Atrial Fibrillation with rate controlled off Digoxin , on 100mg atenolol, rate is controlled now, continue Xarelto 15mg # HTN s/p hypotension now on Atenolol 100mg # HLD on statins continue # NIDDMII sliding scale with coverage # Hypothyroidism continue oral synthroid # CAD s/p CABG 2012: will hold ASA due to hematuria #CVA in 2013: Continue Simvastatin 10mg , on XArelto #Constipation:Patient at [place] on senna, and colace. # Hx of Dementia: Currently on no medications # BPH:Continue Flomax Prophylaxis:High risk. SCD's for DVT. on Xarelto GI Px: PPI
[2017-10-31] MEDS ORDERED: SODIUM PHOSPHATE - 15 MM in SODIUM CHLORIDE 250 ML IVPB ONE (14:00)
--- NOTE | 2017-10-31 14:36 | PN ---
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 (short form) - Note 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: PULMONARY Denies shortness of breath, cough or wheezing. Vital Signs Period Temp Pulse Resp BP Sys/Avelar Pulse Ox Last 24 Hr 97.6 F-98.7 F 80-98 20-22 116-139/68-81 97-100 Gen: mildly tachypneic at rest Heart: RRR Lung: decreased breath sounds at the bases Abd: soft, nontender Ext: no edema CBC, BMP 10/31/17 06:40 10/31/17 06:40 Active Medications Atenolol (Tenormin -) 100 mg PO DAILY [facility] Last Admin: 10/31/17 10:04 Dose: 100 mg Vancomycin HCl (Vancomycin 1 Gm Premix -) 1 gm in 200 mls @ 133.333 mls/hr IVPB BID@0000,1200 [facility]; Protocol Last Admin: 10/31/17 11:44 Dose: 133.333 mls/hr Meropenem 500 mg/ Dextrose 100 mls @ 200 mls/hr IVPB Q8H-IV [facility] Last Admin: 10/31/17 10:03 Dose: 200 mls/hr Sodium Chloride (Normal Saline -) 1,000 mls @ 100 mls/hr IV ASDIR [facility] Last Admin: 10/30/17 21:45 Dose: Not Given Sodium Phosphate 15 mm/ Sodium (Chloride) 255 mls @ 62.5 mls/hr IVPB ONCE ONE Stop: 10/31/17 18:04 Last Admin: 10/31/17 14:24 Dose: 62.5 mls/hr Insulin Aspart (Novolog Vial Sliding Scale -) 1 vial SQ ACHS [facility]; Protocol Last Admin: 10/31/17 11:59 Dose: 2 units Levothyroxine Sodium 100 mcg/ (Levothyroxine Sodium 75 mcg) 175 mcg PO DAILY@ 0700 [facility] Last Admin: 10/31/17 06:56 Dose: 175 mcg Pantoprazole Sodium (Protonix Iv) 40 mg IVPUSH DAILY [facility] Last Admin: 10/31/17 10:03 Dose: 40 mg Potassium Phos/Sodium Phos (Phos-Nak Packet -) 1 packet PO TID [facility] Last Admin: 10/31/17 14:12 Dose: 1 packet Rivaroxaban (Xarelto -) 15 mg PO DAILY@1800 [facility] Last Admin: 10/30/17 17:49 Dose: 15 mg A/P Polymicrobial Bacteremia UTI Hematuria Septic Shock resolving Acute Kidney Injury Lactic Acidosis +Troponins likely Demand Ischemia Atrial Fibrillation HTN Hyperlipidemia Hypothyroidism - broad spectrum antibiotics - rate control - continue anticoagulation - monitor urine output, creatinine - DVT/GI prophylaxis
[2017-10-31] MEDS: SODIUM CHLORIDE 1,000 ML IV SCH (17:47)
[2017-10-31] MEDS: RIVAROXABAN 15 MG TABLET PO SCH (17:47)
--- NOTE | 2017-10-31 23:44 | PN ---
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, Physician Chief Complaint: Pt A&Ox3; denies chest pain or trouble breathing. History of Present Illness: Mr. Bains is a 77 you white male w/ pmh of dementia, GERD, HTN, HLD, afib, hypothyroidism, PH, DMII, known UTI on day 12 of 31 day course of macrobid who presents for evaluation of fever to 102.8 despite tylenol 650 and brown/margaret appearing urine. Patient reportedly at baseline per NH staff however concern for sepsis prompted transfer to ED. - Current Medication List Current Medications: Active Medications Atenolol (Tenormin -) 100 mg PO DAILY [facility] Last Admin: 10/31/17 10:04 Dose: 100 mg Vancomycin HCl (Vancomycin 1 Gm Premix -) 1 gm in 200 mls @ 133.333 mls/hr IVPB BID@0000,1200 [facility]; Protocol Last Admin: 10/31/17 11:44 Dose: 133.333 mls/hr Meropenem 500 mg/ Dextrose 100 mls @ 200 mls/hr IVPB Q8H-IV [facility] Last Admin: 10/31/17 17:47 Dose: 200 mls/hr Sodium Chloride (Normal Saline -) 1,000 mls @ 100 mls/hr IV ASDIR [facility] Last Admin: 10/31/17 17:47 Dose: 100 mls/hr Insulin Aspart (Novolog Vial Sliding Scale -) 1 vial SQ ACHS [facility]; Protocol Last Admin: 10/31/17 21:09 Dose: 2 units Levothyroxine Sodium 100 mcg/ (Levothyroxine Sodium 75 mcg) 175 mcg PO DAILY@ 0700 [facility] Last Admin: 10/31/17 06:56 Dose: 175 mcg Pantoprazole Sodium (Protonix Iv) 40 mg IVPUSH DAILY [facility] Last Admin: 10/31/17 10:03 Dose: 40 mg Potassium Phos/Sodium Phos (Phos-Nak Packet -) 1 packet PO TID [facility] Last Admin: 10/31/17 21:09 Dose: 1 packet Rivaroxaban (Xarelto -) 15 mg PO DAILY@1800 [facility] Last Admin: 10/31/17 17:47 Dose: 15 mg - Objective Vital Signs: Vital Signs Temperature 98.5 F 10/31/17 21:00 Pulse Rate 97 H 10/31/17 21:00 Respiratory Rate 18 10/31/17 21:00 Blood Pressure 129/74 10/31/17 21:00 O2 Sat by Pulse Oximetry (%) 97 10/31/17 21:00 Constitutional: Yes: Calm Eyes: Yes: WNL HENT: Yes: WNL Labs: CBC, BMP 10/31/17 06:40 10/31/17 06:40 INR, PTT INR 1.43 (0.83-1.09) H 10/29/17 05:30 Problem List - Problems (1) History of aortic valve replacement with bioprosthetic valve Assessment/Plan: ECHO: prosthetic Aov; cannot r/o veg on tricuspid valve; likely torn cordae tendonae.. On antibiotics per ID; f/u clinical status (now off vasopressors). Blood cultures +. Consider MERLE if intractable bacteremia and/or fever. Keep Mg 2-2.4, K 4-4.5. Keep PO4 2.5-4.9 (remains low). Code(s): Z95.3 - PRESENCE OF XENOGENIC HEART VALVE (2) Hematuria Code(s): R31.9 - HEMATURIA, UNSPECIFIED Qualifiers: Hematuria type: gross Qualified Code(s): R31.0 - Gross hematuria (3) Atrial fibrillation Assessment/Plan: Now on atenolol for BP and HR control. Off digoxin. Anticoagulation: on rivaroxaban. Code(s): I48.91 - UNSPECIFIED ATRIAL FIBRILLATION (4) Hypothyroidism Assessment/Plan: on levothyroxine. F/u TSH. Code(s): E03.9 - HYPOTHYROIDISM, UNSPECIFIED
[2017-11-01] MEDS: MEROPENEM 500 MG in DEXTROSE 5%-WATER - 100 ML IVPB SCH (01:42)
[2017-11-01] MEDS ORDERED: PT OWN MED DRAWER 7, Y5N ONE ×3 (01:42→14:36)
[2017-11-01] MEDS: SODIUM CHLORIDE 1,000 ML IV SCH ×2 (03:00→17:49)
[2017-11-01] MEDS ORDERED: LEVOTHYROXINE NA 100 MCG TABLET (FP) ONE (05:45)
[2017-11-01] MEDS ORDERED: LEVOTHYROXINE NA 75 MCG TABLET (FP) ONE (05:45)
[2017-11-01] MEDS: INSULIN SLIDING SCALE (NOVOLOG) 1 VIAL SQ SCH ×4 (06:08→21:16)
[2017-11-01] MEDS: LEVOTHYROXINE 100 MCG, LEVOTHYROXINE 75 MCG PO SCH (06:09)
[2017-11-01] MEDS: NAPH,MB-DB/K PH,MBDB POWDER PACKET PO SCH ×3 (06:09→21:16)
[2017-11-01 07:09] LABS: BASO % 0.5 % (0-2.0); HEMATOCRIT 29.6 % (35.4-49); HEMOGLOBIN 9.9 GM/dL (11.7-16.9); LYMPH % 15.5 % (8-40); MCH 31.5 pg (25.7-33.7); MCHC 33.3 g/dl (32.0-35.9); MEAN CELL VOLUME 94.6 fl (80-96); MEAN PLT VOLUME 8.5 fl (7.5-11.1); MONO % 14.7 % (3.8-10.2); NEUT % 67.3 % (42.8-82.8); PLATELET COUNT 143 K/MM3 (134-434); RBC 3.13 M/mm3 (4.00-5.60); RDW 15.4 % (11.9-15.9); WHITE BLOOD COUNT 4.8 K/mm3 (4.0-10.0)
[2017-11-01 08:04] LABS: CHLORIDE 107 mmol/L (98-107); POTASSIUM 3.8 mmol/L (3.5-5.1); SODIUM 143 mmol/L (136-145)
[2017-11-01 08:40] LABS: ALBUMIN 2.1 g/dl (3.4-5.0); ALK PHOS 61 U/L (45-117); ANION GAP 12 MMOL/L (8-16); BILIRUBIN,TOTAL 0.5 mg/dL (0.2-1.0); BLOOD UREA NITROGEN 22 mg/dL (7-18); CALCIUM 7.5 mg/dL (8.5-10.1); CO2 24 mmol/L (21-32); CREATININE 0.8 mg/dL (0.7-1.3); GLUCOSE,RANDOM 99 mg/dL (74-106); MAGNESIUM 1.7 mg/dL (1.8-2.4); PHOSPHOROUS 2.7 mg/dL (2.5-4.9); SGOT/AST 24 U/L (15-37); SGPT/ALT 33 U/L (12-78); TOT PROT 4.7 g/dl (6.4-8.2)
[2017-11-01] MEDS: ATENOLOL 50 MG TABLET (FP) PO SCH (09:25)
--- NOTE | 2017-11-01 09:25 | PN ---
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 (short form) - Note 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: resting comfortably has the hiccups Vital Signs Period Temp Pulse Resp BP Sys/Avelar Pulse Ox Last 24 Hr 97.0 F-99.2 F 88-105 18-20 120-142/73-81 97 cor-rrr lungs decreased bs at bases abd soft,nt ext no edema +sarah CBC, BMP 11/01/17 05:30 11/01/17 05:30 Microbiology 10/27/17 05:45 Blood - Peripheral Venous Blood Culture - Final Staph Capitis Subsp Ureolyticu 10/29/17 10:00 Blood - Peripheral Venous Blood Culture - Preliminary NO GROWTH OBTAINED AFTER 48 HOURS, INCUBATION TO CONTINUE FOR 3 DAYS. 10/29/17 09:45 Blood - Peripheral Venous Blood Culture - Preliminary NO GROWTH OBTAINED AFTER 48 HOURS, INCUBATION TO CONTINUE FOR 3 DAYS. 10/27/17 05:45 Blood - Peripheral Venous Blood Culture - Preliminary Proteus Mirabilis Staphylococcus Coagulase Neg 10/27/17 07:59 Urine - Urine Clean Catch Urine Culture - Final Proteus Mirabilis 10/27/17 11:00 Stool Clostridium difficile Antigen (CAREN) - Final 10/27/17 11:00 Stool Clostridium difficile Toxin Assay - Final Active Medications Atenolol (Tenormin -) 100 mg PO DAILY [facility] Last Admin: 10/31/17 10:04 Dose: 100 mg Vancomycin HCl (Vancomycin 1 Gm Premix -) 1 gm in 200 mls @ 133.333 mls/hr IVPB BID@0000,1200 [facility]; Protocol Last Admin: 11/01/17 00:00 Dose: 133.333 mls/hr Meropenem 500 mg/ Dextrose 100 mls @ 200 mls/hr IVPB Q8H-IV [facility] Last Admin: 11/01/17 01:42 Dose: 200 mls/hr Sodium Chloride (Normal Saline -) 1,000 mls @ 100 mls/hr IV ASDIR [facility] Last Admin: 11/01/17 03:00 Dose: 100 mls/hr Insulin Aspart (Novolog Vial Sliding Scale -) 1 vial SQ ACHS [facility]; Protocol Last Admin: 11/01/17 06:08 Dose: Not Given Levothyroxine Sodium 100 mcg/ (Levothyroxine Sodium 75 mcg) 175 mcg PO DAILY@ 0700 [facility] Last Admin: 11/01/17 06:09 Dose: 175 mcg Pantoprazole Sodium (Protonix Iv) 40 mg IVPUSH DAILY [facility] Last Admin: 10/31/17 10:03 Dose: 40 mg Potassium Phos/Sodium Phos (Phos-Nak Packet -) 1 packet PO TID [facility] Last Admin: 11/01/17 06:09 Dose: 1 packet Rivaroxaban (Xarelto -) 15 mg PO DAILY@1800 [facility] Last Admin: 10/31/17 17:47 Dose: 15 mg a/p Proteus bacteremia/UTI can switch to rocephin ?significance of coag neg staph bacteremia- awaiting IF of blood cultures from admission continue vancomycin will need urology f/u for sarah catheter/urinary retention s/p bioAVR-repeat blood cultures are negative
[2017-11-01] MEDS: PANTOPRAZOLE SODIUM 40 MG VIAL IVPUSH SCH (09:26)
[2017-11-01] MEDS ORDERED: DEXTROSE 5%-WATER 100 ML IVPB ONE (09:35)
--- NOTE | 2017-11-01 09:36 | PN ---
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, Physician History of Present Illness: PULMONARY ALERT,C/O HICCUPS,-SOB,-CP - Current Medication List Current Medications: Active Medications Atenolol (Tenormin -) 100 mg PO DAILY [facility] Last Admin: 10/31/17 10:04 Dose: 100 mg Vancomycin HCl (Vancomycin 1 Gm Premix -) 1 gm in 200 mls @ 133.333 mls/hr IVPB BID@0000,1200 [facility]; Protocol Last Admin: 11/01/17 00:00 Dose: 133.333 mls/hr Sodium Chloride (Normal Saline -) 1,000 mls @ 100 mls/hr IV ASDIR [facility] Last Admin: 11/01/17 03:00 Dose: 100 mls/hr Ceftriaxone Sodium 2 gm/ (Dextrose) 100 mls @ 200 mls/hr IVPB DAILY [facility]; Protocol Insulin Aspart (Novolog Vial Sliding Scale -) 1 vial SQ ACHS [facility]; Protocol Last Admin: 11/01/17 06:08 Dose: Not Given Levothyroxine Sodium 100 mcg/ (Levothyroxine Sodium 75 mcg) 175 mcg PO DAILY@ 0700 [facility] Last Admin: 11/01/17 06:09 Dose: 175 mcg Pantoprazole Sodium (Protonix Iv) 40 mg IVPUSH DAILY [facility] Last Admin: 10/31/17 10:03 Dose: 40 mg Potassium Phos/Sodium Phos (Phos-Nak Packet -) 1 packet PO TID [facility] Last Admin: 11/01/17 06:09 Dose: 1 packet Rivaroxaban (Xarelto -) 15 mg PO DAILY@1800 [facility] Last Admin: 10/31/17 17:47 Dose: 15 mg - Objective Vital Signs: Vital Signs Temperature 98.6 F 11/01/17 06:00 Pulse Rate 93 H 11/01/17 06:00 Respiratory Rate 19 11/01/17 06:00 Blood Pressure 130/80 11/01/17 06:00 O2 Sat by Pulse Oximetry (%) 97 10/31/17 21:00 Constitutional: Yes: Well Nourished, Calm Eyes: Yes: WNL HENT: Yes: WNL Neck: Yes: WNL Cardiovascular: Yes: Pulse Irregular, S1, S2 Respiratory: Yes: Diminished Gastrointestinal: Yes: Normal Bowel Sounds, Soft Extremities: Yes: WNL Edema: No Labs: CBC, BMP 11/01/17 05:30 11/01/17 05:30 INR, PTT INR 1.43 (0.83-1.09) H 10/29/17 05:30 Problem List - Problems (1) Atrial fibrillation Code(s): I48.91 - UNSPECIFIED ATRIAL FIBRILLATION (2) History of aortic valve replacement with bioprosthetic valve Code(s): Z95.3 - PRESENCE OF XENOGENIC HEART VALVE (3) Hypothyroidism Code(s): E03.9 - HYPOTHYROIDISM, UNSPECIFIED (4) Sepsis Code(s): A41.9 - SEPSIS, UNSPECIFIED ORGANISM Qualifiers: Sepsis type: sepsis due to unspecified organism Qualified Code(s): A41.9 - Sepsis, unspecified organism (5) Hiccups Code(s): R06.6 - HICCOUGH (6) Hematuria Code(s): R31.9 - HEMATURIA, UNSPECIFIED Qualifiers: Hematuria type: gross Qualified Code(s): R31.0 - Gross hematuria Assessment/Plan A/P Polymicrobial Bacteremia UTI Hematuria Septic Shock resolving Acute Kidney Injury Lactic Acidosis +Troponins likely Demand Ischemia Atrial Fibrillation HTN Hyperlipidemia Hypothyroidism Hiccups - broad spectrum antibiotics as per ID - rate control - continue anticoagulation - monitor urine output, creatinine - DVT/GI prophylaxis DR NUGENT
[2017-11-01] MEDS: CEFTRIAXONE 2 GM in DEXTROSE 5%-WATER 100 ML IVPB SCH (10:19)
[2017-11-01 10:32] LABS: ANISOCYTOSIS 1+; MACROCYTOSIS 1+; PLATELET ESTIMATE NORMAL
[2017-11-01] MEDS: VANCOMYCIN 1 GM PREMIX - 1 GM/200 ML BAG IVPB SCH ×2 (12:42)
--- NOTE | 2017-11-01 13:35 | EKG ---
Test Reason : Blood Pressure : / mmHG Vent. Rate : 085 BPM Atrial Rate : 394 BPM P-R Int : 000 ms QRS Dur : 092 ms QT Int : 356 ms P-R-T Axes : 000 002 023 degrees QTc Int : 423 ms ATRIAL FIBRILLATION WITH PREMATURE VENTRICULAR OR ABERRANTLY CONDUCTED COMPLEXES ABNORMAL ECG WHEN COMPARED WITH ECG OF 29-OCT-2017 14:21, NONSPECIFIC T WAVE ABNORMALITY NO LONGER EVIDENT IN LATERAL LEADS Confirmed by CRISTIANO ALMEIDA MD ([id number]) on 11/01/2017 1:35:14 PM Referred By: Saman THOMAS Confirmed By:CRISTIANO ALMEIDA MD
--- NOTE | 2017-11-01 13:57 | PN ---
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 (short form) - Note 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: Patient is comfortable with no acute distress. Feeling better, low grade fever. No chills, continues to have Hiccups. Vital Signs Temperature 100.3 F H 11/01/17 13:29 Pulse Rate 92 H 11/01/17 13:29 Respiratory Rate 20 11/01/17 13:29 Blood Pressure 122/80 11/01/17 13:29 O2 Sat by Pulse Oximetry (%) 97 11/01/17 09:00 Gen: Tachycardia improved Heart: RRR, Systolic ejection click Lung: decreased breath sounds at the bases Abd: soft, nontender Ext: no edema, SCDs CBCD WBC 4.8 K/mm3 (4.0-10.0) 11/01/17 05:30 RBC 3.13 M/mm3 (4.00-5.60) L 11/01/17 05:30 Hgb 9.9 GM/dL (11.7-16.9) L 11/01/17 05:30 Hct 29.6 % (35.4-49) L 11/01/17 05:30 MCV 94.6 fl (80-96) 11/01/17 05:30 MCHC 33.3 g/dl (32.0-35.9) 11/01/17 05:30 RDW 15.4 % (11.9-15.9) 11/01/17 05:30 Plt Count 143 K/MM3 (134-434) D 11/01/17 05:30 MPV 8.5 fl (7.5-11.1) 11/01/17 05:30 CMP Sodium 143 mmol/L (136-145) 11/01/17 05:30 Potassium 3.8 mmol/L (3.5-5.1) 11/01/17 05:30 Chloride 107 mmol/L (98-107) 11/01/17 05:30 Carbon Dioxide 24 mmol/L (21-32) 11/01/17 05:30 Anion Gap 12 MMOL/L (8-16) 11/01/17 05:30 BUN 22 mg/dL (7-18) H 11/01/17 05:30 Creatinine 0.8 mg/dL (0.7-1.3) 11/01/17 05:30 Creat Clearance w eGFR > 60 (>60) 11/01/17 05:30 Random Glucose 99 mg/dL (74-106) 11/01/17 05:30 Calcium 7.5 mg/dL (8.5-10.1) L 11/01/17 05:30 Total Bilirubin 0.5 mg/dL (0.2-1.0) 11/01/17 05:30 AST 24 U/L (15-37) 11/01/17 05:30 ALT 33 U/L (12-78) 11/01/17 05:30 Alkaline Phosphatase 61 U/L (45-117) 11/01/17 05:30 Total Protein 4.7 g/dl (6.4-8.2) L 11/01/17 05:30 Albumin 2.1 g/dl (3.4-5.0) L 11/01/17 05:30 CARDIAC ENZYMES Creatine Kinase 246 IU/L (39-308) 10/28/17 12:19 Troponin I 0.12 ng/ml (0.00-0.05) H D 10/28/17 21:20 Current Medications Generic Name Dose Route Start Last Admin Trade Name Tenq PRN Reason Stop Dose Admin Atenolol 100 mg 10/31/17 10:00 11/01/17 09:25 Tenormin - PO 100 mg DAILY [facility] Administration Sodium Chloride 1,000 mls @ 100 mls/hr 10/30/17 15:58 11/01/17 03:00 Normal Saline - IV 100 mls/hr ASDIR [facility] Administration Ceftriaxone Sodium 2 gm/ 100 mls @ 200 mls/hr 11/01/17 10:00 11/01/17 10:19 Dextrose IVPB 200 mls/hr DAILY [facility] Administration Protocol Vancomycin HCl 1 gm in 200 mls @ 133.333 mls/hr 11/02/17 10:00 Vancomycin 1 Gm Premix - IVPB Q24H [facility] Protocol Insulin Aspart 1 vial 10/30/17 16:30 11/01/17 12:12 Novolog Vial Sliding Scale - SQ 2 units ACHS [facility] Administration Protocol Levothyroxine Sodium 100 mcg/ 175 mcg 10/31/17 07:00 11/01/17 06:09 Levothyroxine Sodium 75 mcg PO 175 mcg DAILY@0700 [facility] Administration Pantoprazole Sodium 40 mg 10/31/17 10:00 11/01/17 09:26 Protonix Iv IVPUSH 40 mg DAILY [facility] Administration Potassium Phos/Sodium Phos 1 packet 10/30/17 22:00 11/01/17 06:09 Phos-Nak Packet - PO 1 packet TID [facility] Administration Rivaroxaban 15 mg 10/30/17 18:00 10/31/17 17:47 Xarelto - PO 15 mg DAILY@1800 [facility] Administration Home Medications Medication Instructions Recorded Atenolol [Tenormin -] 100 mg PO DAILY 10/27/17 Digoxin [Lanoxin -] 0.125 mg PO DAILY 10/27/17 Docusate Sodium [Colace] 300 mg PO HS 10/27/17 Hydrochlorothiazide 12.5 mg PO DAILY 10/27/17 Levothyroxine [Synthroid -] 175 mcg PO DAILY 10/27/17 Metformin HCl [Glucophage] 500 mg PO BID 10/27/17 Nitrofurantoin Macrocrystal 100 mg PO DAILY 10/27/17 [Nitrofurantoin] Nystatin Cream [Mycostatin Cream -] 1 applic TP BID 10/27/17 Ranitidine [Zantac -] 150 mg PO DAILY 10/27/17 Sennosides [Senna] 2 tab PO DAILY 10/27/17 Simvastatin 10 mg PO HS 10/27/17 Tamsulosin HCl [Flomax] 0.4 mg PO DAILY 10/27/17 Microbiology 10/27/17 05:45 Blood - Peripheral Venous Blood Culture - Final Proteus Mirabilis Staphylococcus Epidermidis 10/29/17 10:00 Blood - Peripheral Venous Blood Culture - Preliminary NO GROWTH OBTAINED AFTER 72 HOURS, INCUBATION TO CONTINUE FOR 2 DAYS. 10/29/17 09:45 Blood - Peripheral Venous Blood Culture - Preliminary NO GROWTH OBTAINED AFTER 72 HOURS, INCUBATION TO CONTINUE FOR 2 DAYS. 10/27/17 05:45 Blood - Peripheral Venous Blood Culture - Final Staph Capitis Subsp Ureolyticu 10/27/17 07:59 Urine - Urine Clean Catch Urine Culture - Final Proteus Mirabilis 10/27/17 11:00 Stool Clostridium difficile Antigen (CAREN) - Final 10/27/17 11:00 Stool Clostridium difficile Toxin Assay - Final ECHO: prosthetic Aov; cannot r/o veg on tricuspid valve; likely torn cordae tendonae.. carotid US: Moderate atherosclerotic disease, left greater than right, with stenoses in the 60-79% range involving the internal carotid arteries. Clinical correlation and follow-up studies recommended. Please see above discussion. PE:nice gentleman , alert, awake CVS:regularly- regular ,rate of 88, positive for click Abdominal CT (10/27/17):1. Right nephrolithiasis with no evidence of hydronephrosis or obstructive uropathy. 2. Thick-walled urinary bladder containing calculi. Air is also noted within the bladder that may be the result of recent instrumentation. 3. Chavez catheter within prostatic urethra. Repositioning recommended. 4. Air within the right common femoral vein of uncertain etiology. 5. Fecal impaction. Chest X-Ray (10/27/17): Large heart. Congestive changes. Right line in place. No pneumothorax. ASSESSMENT AND PLAN: Patient is a 77 y/o male with PMHx of HTN, HLD, DM, afib, and stroke (2013 on AC, Xarelto) who presented from [facility] for fever, hypotension and Hematuria. # Echo positive for prosthetic AOV; cannot r/o veg on tricuspid valve; likely torn cordae tendonae, will discuss with Cardiology regarding MERLE.. #UTI: Proteus Mirabilis on iv Rocephin and Vancomycin # bacteremia due to Staph Capitis Subsp Ureolyticu sensitive to Vanco. and on Rocephin continue. repeat blood culture is negative # s/p Septic Shock, s/p pressors, levo and vasopressors. # Continues Hiccups: Protonix 40mg daily , will add one dose of Reglan po # s/p Hematuria resolved s/p 3 way catheter CBI, Urology , # JET due to obstructive uropathy , improved # Elevated Troponins most likely due demand ischemia echo reviewed , and repeat Trops. was elevated. cardio consult # Atrial Fibrillation with rate controlled off Digoxin , on 100mg atenolol, rate is controlled now, continue Xarelto 15mg # HTN s/p hypotension now on Atenolol 100mg # HLD on statins continue # NIDDMII sliding scale with coverage # Hypothyroidism continue oral synthroid # CAD s/p CABG 2012: will hold ASA due to hematuria #CVA in 2014: Continue Simvastatin 10mg , on XArelto #Constipation:Patient at [place] on senna, and colace. # Hx of Dementia: Currently on no medications # BPH:Continue Flomax Prophylaxis:High risk. SCD's for DVT. on Xarelto GI Px: PPI MERLE once stable Visit type - Emergency Visit Emergency Visit: Yes ED Registration Date: 10/27/17 Care time: The patient presented to the Emergency Department on the above date and was hospitalized for further evaluation of their emergent condition. - New Patient This patient is new to me today: No - Critical Care Critical Care patient: No - Discharge Referral Referred to [facility] Med [facility].C.: No
--- NOTE | 2017-11-01 16:34 | PN ---
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, Physician Chief Complaint: Pt A&Ox3; denies chest pain or trouble breathing; still with intermittent periods of hiccups (his daughter says he had hiccups in the past that would last for months). History of Present Illness: Mr. Bains is a 77 you white male w/ pmh of dementia, GERD, HTN, HLD, afib, hypothyroidism, PH, DMII, known UTI on day 12 of 31 day course of macrobid who presents for evaluation of fever to 102.8 despite tylenol 650 and brown/margaret appearing urine. Patient reportedly at baseline per ID staff however concern for sepsis prompted transfer to ED. - Current Medication List Current Medications: Active Medications Atenolol (Tenormin -) 100 mg PO DAILY [facility] Last Admin: 11/01/17 09:25 Dose: 100 mg Sodium Chloride (Normal Saline -) 1,000 mls @ 100 mls/hr IV ASDIR [facility] Last Admin: 11/01/17 03:00 Dose: 100 mls/hr Ceftriaxone Sodium 2 gm/ (Dextrose) 100 mls @ 200 mls/hr IVPB DAILY [facility]; Protocol Last Admin: 11/01/17 10:19 Dose: 200 mls/hr Vancomycin HCl (Vancomycin 1 Gm Premix -) 1 gm in 200 mls @ 133.333 mls/hr IVPB Q24H [facility]; Protocol Insulin Aspart (Novolog Vial Sliding Scale -) 1 vial SQ ACHS [facility]; Protocol Last Admin: 11/01/17 12:12 Dose: 2 units Levothyroxine Sodium 100 mcg/ (Levothyroxine Sodium 75 mcg) 175 mcg PO DAILY@ 0700 [facility] Last Admin: 11/01/17 06:09 Dose: 175 mcg Pantoprazole Sodium (Protonix Iv) 40 mg IVPUSH DAILY [facility] Last Admin: 11/01/17 09:26 Dose: 40 mg Potassium Phos/Sodium Phos (Phos-Nak Packet -) 1 packet PO TID [facility] Last Admin: 11/01/17 14:47 Dose: 1 packet Rivaroxaban (Xarelto -) 15 mg PO DAILY@1800 [facility] Last Admin: 10/31/17 17:47 Dose: 15 mg - Objective Vital Signs: Vital Signs Temperature 100.3 F H 11/01/17 14:00 Pulse Rate 92 H 11/01/17 14:00 Respiratory Rate 20 11/01/17 14:00 Blood Pressure 122/80 11/01/17 14:00 O2 Sat by Pulse Oximetry (%) 97 11/01/17 09:00 Constitutional: Yes: Calm Eyes: Yes: WNL HENT: Yes: WNL Neck: Yes: WNL Cardiovascular: Yes: S1 (varies in intensity), S2 Respiratory: Yes: Regular Gastrointestinal: Yes: Soft ...Rectal Exam: Yes: Deferred Genitourinary: No: Anuria Breast(s): Yes: WNL Extremities: Yes: Cool, Other (does not move left arm or leg: s/p CVA) Edema: No Peripheral Pulses WNL: No Peripheral Pulses: Left Doralis Pedis: 1+, Right Dorsalis Pedis: 1+ Neurological: Yes: Alert, Oriented, Weakness Psychiatric: Yes: Alert Labs: CBC, BMP 11/01/17 05:30 11/01/17 05:30 INR, PTT INR 1.43 (0.83-1.09) H 10/29/17 05:30 Abnormal Lab Results 11/01/17 11/01/17 11/01/17 05:30 05:30 11:00 RBC 3.13 L Hgb 9.9 L Hct 29.6 L Lymphocytes % (Manual) 5.9 L D Monocytes % 14.7 H D Myelocytes % (Man) 5 H D BUN 22 H Calcium 7.5 L Magnesium 1.7 L Total Protein 4.7 L Albumin 2.1 L Vancomycin Pre-Dose 23.83 H* - ....Imaging EKG: Image Reviewed (AF with controlled VR) Other: Image Reviewed (telemetry: AF) Problem List - Problems (1) History of aortic valve replacement with bioprosthetic valve Assessment/Plan: ECHO: prosthetic Aov; cannot r/o veg on tricuspid valve; likely torn cordae tendonae.. On antibiotics per ID; f/u clinical status (now off vasopressors). Blood cultures +. Consider MERLE if intractable bacteremia and/or fever. Keep Mg 2-2.4, K 4-4.5. Keep PO4 2.5-4.9 (remains low). 10/29/2017: blood cultures: no growth Afebrile WBC 10.7-->23.1--.> now 4.8 Code(s): Z95.3 - PRESENCE OF XENOGENIC HEART VALVE (2) Hematuria Code(s): R31.9 - HEMATURIA, UNSPECIFIED Qualifiers: Hematuria type: gross Qualified Code(s): R31.0 - Gross hematuria (3) Atrial fibrillation Assessment/Plan: Now on atenolol for BP and HR control. Off digoxin. Anticoagulation: on rivaroxaban. Code(s): I48.91 - UNSPECIFIED ATRIAL FIBRILLATION (4) Hypothyroidism Assessment/Plan: on levothyroxine. TSH WNL. Code(s): E03.9 - HYPOTHYROIDISM, UNSPECIFIED (5) UTI (urinary tract infection) Assessment/Plan: on IV antibiotics per ID. Code(s): N39.0 - URINARY TRACT INFECTION, SITE NOT SPECIFIED (6) CVA (cerebral vascular accident) Assessment/Plan: left sided weakness. f/u results of CT head, carotid artery US. Keep LDL cholesterol < 70 mg/dL; lipid panel pending. Code(s): I63.9 - CEREBRAL INFARCTION, UNSPECIFIED
[2017-11-01 17:33] LABS: CHOLESTEROL 81 mg/dL (50-200); TRIGLYCERIDES 96 mg/dL (35-160)
[2017-11-01 17:34] LABS: HDL CHOLESTEROL 16 mg/dL (40-60)
[2017-11-01] MEDS: RIVAROXABAN 15 MG TABLET PO SCH (17:49)
[2017-11-02] MEDS: SODIUM CHLORIDE 1,000 ML IV SCH (00:19)
[2017-11-02] MEDS ORDERED: LEVOTHYROXINE NA 100 MCG TABLET (FP) ONE (06:17)
[2017-11-02] MEDS ORDERED: LEVOTHYROXINE NA 75 MCG TABLET (FP) ONE (06:17)
[2017-11-02] MEDS: INSULIN SLIDING SCALE (NOVOLOG) 1 VIAL SQ SCH ×3 (06:40→17:43)
[2017-11-02] MEDS: LEVOTHYROXINE 100 MCG, LEVOTHYROXINE 75 MCG PO SCH (06:41)
[2017-11-02] MEDS: NAPH,MB-DB/K PH,MBDB POWDER PACKET PO SCH ×3 (06:41→21:57)
[2017-11-02] MEDS: BENZOCAINE/MENTH/CETYLPYRD CL 1 EACH LOZENGE MM PRN ×3 (06:43→21:58)
[2017-11-02] MEDS ORDERED: PT OWN MED DRAWER 7, Y5N ONE ×2 (06:56→10:26)
[2017-11-02 07:16] LABS: CHLORIDE 105 mmol/L (98-107); POTASSIUM 3.9 mmol/L (3.5-5.1); SODIUM 141 mmol/L (136-145)
[2017-11-02 07:23] LABS: ALK PHOS 64 U/L (45-117); ANION GAP 9 MMOL/L (8-16); BILIRUBIN,TOTAL 0.5 mg/dL (0.2-1.0); BLOOD UREA NITROGEN 19 mg/dL (7-18); CALCIUM 7.6 mg/dL (8.5-10.1); CO2 27 mmol/L (21-32); CREATININE 0.7 mg/dL (0.7-1.3); GLUCOSE,RANDOM 92 mg/dL (74-106); SGOT/AST 21 U/L (15-37); SGPT/ALT 30 U/L (12-78)
[2017-11-02 07:56] LABS: BASO % 0.6 % (0-2.0); EOS % 2.6 % (0-4.5); HEMATOCRIT 29.3 % (35.4-49); HEMOGLOBIN 9.9 GM/dL (11.7-16.9); LYMPH % 13.3 % (8-40); MCH 30.7 pg (25.7-33.7); MCHC 33.6 g/dl (32.0-35.9); MEAN CELL VOLUME 91.4 fl (80-96); MEAN PLT VOLUME 8.5 fl (7.5-11.1); MONO % 12.1 % (3.8-10.2); NEUT % 71.4 % (42.8-82.8); PLATELET COUNT 174 K/MM3 (134-434); RBC 3.21 M/mm3 (4.00-5.60); RDW 15.3 % (11.9-15.9); WHITE BLOOD COUNT 7.9 K/mm3 (4.0-10.0)
[2017-11-02 08:08] LABS: MAGNESIUM 1.6 mg/dL (1.8-2.4); PHOSPHOROUS 3.1 mg/dL (2.5-4.9)
[2017-11-02] MEDS ORDERED: ACETAMINOPHEN 325 MG TABLET (FP) PO PRN (08:53)
[2017-11-02] MEDS ORDERED: DEXTROSE 5%-WATER 100 ML IVPB ONE (10:26)
[2017-11-02] MEDS: ATENOLOL 50 MG TABLET (FP) PO SCH (10:28)
[2017-11-02] MEDS: CEFTRIAXONE 2 GM in DEXTROSE 5%-WATER 100 ML IVPB SCH (10:28)
--- NOTE | 2017-11-02 11:01 | PN ---
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: Selected Entries 10/28/17 10/28/17 10/28/17 02:00 10:00 10:13 Breakfast NPO Lunch 75% Supper Temperature 98 F 99 F 10/28/17 10/28/17 10/28/17 14:00 18:00 19:33 Breakfast Lunch Supper 50% Temperature 98.8 F 98 F 10/28/17 10/29/17 10/29/17 20:00 02:00 09:41 Breakfast 75% Lunch Supper Temperature 98.7 F 98.5 F 10/29/17 11/01/17 11/01/17 10:00 01:00 06:00 Breakfast Lunch Supper Temperature 98.9 F 99.2 F 98.6 F 11/01/17 11/01/17 11/01/17 09:32 10:00 13:30 Breakfast 50% Lunch 50% Supper Temperature 98.7 F 11/01/17 11/01/17 11/01/17 14:00 17:00 21:00 Breakfast Lunch Supper Temperature 100.3 F H 99.3 F 99.0 F 11/01/17 11/02/17 11/02/17 22:00 01:00 06:00 Breakfast Lunch Supper 75% Temperature 99.3 F 99.0 F 11/02/17 08:51 Breakfast Lunch Supper Temperature 100.4 F H Laboratory Tests 11/02/17 05:30 WBC 7.9 Oriented. Tolerating puree/thin liquids. Persistent hiccoughs x 6 days, not just with meals. Pt denies food sticking or regurgitation. c/o throat pain. No white patches on tongue but possibly spotty mucosa on soft palate,left buccal cavity. I'm concerned about upgrading diet with persistent hiccoughs.
[2017-11-02] MEDS: PANTOPRAZOLE SODIUM 40 MG VIAL IVPUSH SCH (11:16)
[2017-11-02] MEDS ORDERED: METOCLOPRAMIDE HCL 10 MG TABLET (FP) PO PRN (11:17)
--- NOTE | 2017-11-02 11:26 | PN ---
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, Physician History of Present Illness: pulmonary alert,no distress,+ hiccups,febrile 100.4 - Current Medication List Current Medications: Active Medications Acetaminophen (Tylenol -) 650 mg PO Q4H PRN PRN Reason: FEVER Atenolol (Tenormin -) 100 mg PO DAILY [facility] Last Admin: 11/02/17 10:28 Dose: 100 mg Benzocaine/Menthol (Cepacol Lozenge -) 1 each MM PRN PRN PRN Reason: SORE THROAT Last Admin: 11/02/17 06:43 Dose: 1 each Sodium Chloride (Normal Saline -) 1,000 mls @ 100 mls/hr IV ASDIR [facility] Last Admin: 11/02/17 00:19 Dose: 100 mls/hr Ceftriaxone Sodium 2 gm/ (Dextrose) 100 mls @ 200 mls/hr IVPB DAILY [facility]; Protocol Last Admin: 11/02/17 10:28 Dose: 200 mls/hr Vancomycin HCl (Vancomycin 1 Gm Premix -) 1 gm in 200 mls @ 133.333 mls/hr IVPB Q24H [facility]; Protocol Insulin Aspart (Novolog Vial Sliding Scale -) 1 vial SQ ACHS [facility]; Protocol Last Admin: 11/02/17 06:40 Dose: Not Given Levothyroxine Sodium 100 mcg/ (Levothyroxine Sodium 75 mcg) 175 mcg PO DAILY@ 0700 [facility] Last Admin: 11/02/17 06:41 Dose: 175 mcg Metoclopramide HCl (Reglan -) 10 mg PO Q6H PRN PRN Reason: HICCUPS Nystatin (Nystatin Oral Suspension -) 500,000 units PO DAILY [facility] Pantoprazole Sodium (Protonix Iv) 40 mg IVPUSH DAILY [facility] Last Admin: 11/02/17 11:16 Dose: 40 mg Potassium Phos/Sodium Phos (Phos-Nak Packet -) 1 packet PO TID [facility] Last Admin: 11/02/17 06:41 Dose: 1 packet Rivaroxaban (Xarelto -) 15 mg PO DAILY@1800 [facility] Last Admin: 11/01/17 17:49 Dose: 15 mg - Objective Vital Signs: Vital Signs Temperature 100.4 F H 11/02/17 08:51 Pulse Rate 89 11/02/17 08:51 Respiratory Rate 18 11/02/17 08:51 Blood Pressure 116/81 11/02/17 08:51 O2 Sat by Pulse Oximetry (%) 98 11/01/17 21:00 Constitutional: Yes: Well Nourished, Calm Eyes: Yes: WNL HENT: Yes: WNL Neck: Yes: WNL Cardiovascular: Yes: Pulse Irregular, S1, S2 Respiratory: Yes: Diminished Gastrointestinal: Yes: Normal Bowel Sounds, Soft Extremities: Yes: WNL Edema: No Labs: CBC, BMP 11/02/17 05:30 11/02/17 05:30 INR, PTT INR 1.43 (0.83-1.09) H 10/29/17 05:30 Problem List - Problems (1) Atrial fibrillation Code(s): I48.91 - UNSPECIFIED ATRIAL FIBRILLATION (2) History of aortic valve replacement with bioprosthetic valve Code(s): Z95.3 - PRESENCE OF XENOGENIC HEART VALVE (3) Hypothyroidism Code(s): E03.9 - HYPOTHYROIDISM, UNSPECIFIED (4) Sepsis Code(s): A41.9 - SEPSIS, UNSPECIFIED ORGANISM Qualifiers: Sepsis type: sepsis due to unspecified organism Qualified Code(s): A41.9 - Sepsis, unspecified organism (5) Hiccups Code(s): R06.6 - HICCOUGH (6) Hematuria Code(s): R31.9 - HEMATURIA, UNSPECIFIED Qualifiers: Hematuria type: gross Qualified Code(s): R31.0 - Gross hematuria Assessment/Plan A/P Polymicrobial Bacteremia UTI Hematuria Septic Shock resolving Acute Kidney Injury Lactic Acidosis +Troponins likely Demand Ischemia Atrial Fibrillation HTN Hyperlipidemia Hypothyroidism Hiccups - broad spectrum antibiotics as per ID - rate control - continue anticoagulation - monitor urine output, creatinine - DVT/GI prophylaxis DR NUGENT
[2017-11-02] MEDS: VANCOMYCIN 1 GM PREMIX - 1 GM/200 ML BAG IVPB SCH (11:43)
[2017-11-02] MEDS ORDERED: NYSTATIN 500,000 UNITS/5 ML SUSPENSION PO SCH (12:15)
[2017-11-02 12:26] LABS: ANISOCYTOSIS 1+; MACROCYTOSIS 1+
[2017-11-02] MEDS: NYSTATIN 500,000 UNITS/5 ML SUSPENSION PO SCH ×2 (13:09→17:22)
--- NOTE | 2017-11-02 13:38 | PN ---
Physical Exam: SUBJECTIVE: Patient seen and examined at bedside. Fully oriented. Complains of intractable hiccups x 4 days. No SOB, no pain. OBJECTIVE: Vital Signs Period Temp Pulse Resp BP Sys/Avelar Pulse Ox Last 24 Hr 99.0 F-100.4 F 80-103 18-21 113-140/76-83 95-98 GENERAL: A&Ox3, intractable hiccuping HEAD: NC/AT EYES: PERRLA, EOMI LUNGS: Unable to assess HEART: Irregularly irregular, tachy ABDOMEN:soft, tenderness to lower abdominal palpation NEUROLOGIC: L LE 0/5 LUE 3/5 forearm flexion, 0/5 shoulder abduction/adduction, R extremities 5/5 EXTREMITIES: No stigmata of endocarditis. No calf tenderness. No peripheral edema. SKIN: Warm, dry, normal turgor, no rashes or lesions noted. Laboratory Results - last 24 hr 11/01/17 11/01/17 11/01/17 05:30 17:28 20:55 WBC RBC Hgb Hct MCV MCH MCHC RDW Plt Count MPV Absolute Neuts (auto) Neutrophils % Neutrophils % (Manual) Band Neutrophils % Lymphocytes % Lymphocytes % (Manual) Monocytes % Monocytes % (Manual) Eosinophils % Eosinophils % (Manual) Basophils % Basophils % (Manual) Myelocytes % (Man) Promyelocytes % (Man) Blast Cells % (Manual) Nucleated RBC % Metamyelocytes Anisocytosis Macrocytosis Sodium Potassium Chloride Carbon Dioxide Anion Gap BUN Creatinine Creat Clearance w eGFR POC Glucometer 121 151 Random Glucose Calcium Phosphorus Magnesium Total Bilirubin AST ALT Alkaline Phosphatase Total Protein Albumin Triglycerides 96 Cholesterol 81 Total LDL Cholesterol 63 HDL Cholesterol 16 L Random Vancomycin 11/02/17 11/02/17 11/02/17 05:30 05:30 06:06 WBC 7.9 RBC 3.21 L Hgb 9.9 L Hct 29.3 L MCV 91.4 MCH 30.7 MCHC 33.6 RDW 15.3 Plt Count 174 D MPV 8.5 Absolute Neuts (auto) 5.6 Neutrophils % 71.4 Neutrophils % (Manual) 68.3 Band Neutrophils % 3.9 Lymphocytes % 13.3 Lymphocytes % (Manual) 9.9 D Monocytes % 12.1 H Monocytes % (Manual) 12 H Eosinophils % 2.6 Eosinophils % (Manual) 0.0 D Basophils % 0.6 Basophils % (Manual) 1.0 D Myelocytes % (Man) 1 D Promyelocytes % (Man) 0 Blast Cells % (Manual) 0 Nucleated RBC % 0 Metamyelocytes 2 Anisocytosis 1+ Macrocytosis 1+ Sodium 141 Potassium 3.9 Chloride 105 Carbon Dioxide 27 Anion Gap 9 BUN 19 H Creatinine 0.7 Creat Clearance w eGFR > 60 POC Glucometer 103 Random Glucose 92 Calcium 7.6 L Phosphorus 3.1 Magnesium 1.6 L Total Bilirubin 0.5 AST 21 ALT 30 Alkaline Phosphatase 64 Total Protein 5.0 L Albumin 2.0 L Triglycerides Cholesterol Total LDL Cholesterol HDL Cholesterol Random Vancomycin 11/02/17 11/02/17 12:16 12:25 WBC RBC Hgb Hct MCV MCH MCHC RDW Plt Count MPV Absolute Neuts (auto) Neutrophils % Neutrophils % (Manual) Band Neutrophils % Lymphocytes % Lymphocytes % (Manual) Monocytes % Monocytes % (Manual) Eosinophils % Eosinophils % (Manual) Basophils % Basophils % (Manual) Myelocytes % (Man) Promyelocytes % (Man) Blast Cells % (Manual) Nucleated RBC % Metamyelocytes Anisocytosis Macrocytosis Sodium Potassium Chloride Carbon Dioxide Anion Gap BUN Creatinine Creat Clearance w eGFR POC Glucometer 199 Random Glucose Calcium Phosphorus Magnesium Total Bilirubin AST ALT Alkaline Phosphatase Total Protein Albumin Triglycerides Cholesterol Total LDL Cholesterol HDL Cholesterol Random Vancomycin 16.56 Active Medications Generic Name Dose Route Start Last Admin Trade Name Freq PRN Reason Stop Dose Admin Acetaminophen 650 mg 11/02/17 08:53 11/02/17 11:45 Tylenol - PO 650 mg Q4H PRN Administration FEVER Atenolol 100 mg 10/31/17 10:00 11/02/17 10:28 Tenormin - PO 100 mg DAILY [facility] Administration Benzocaine/Menthol 1 each 11/02/17 06:15 11/02/17 11:46 Cepacol Lozenge - MM 1 each PRN PRN Administration SORE THROAT Sodium Chloride 1,000 mls @ 100 mls/hr 10/30/17 15:58 11/02/17 00:19 Normal Saline - IV 100 mls/hr ASDIR [facility] Administration Ceftriaxone Sodium 2 gm/ 100 mls @ 200 mls/hr 11/01/17 10:00 11/02/17 10:28 Dextrose IVPB 200 mls/hr DAILY [facility] Administration Protocol Vancomycin HCl 1 gm in 200 mls @ 133.333 mls/hr 11/02/17 10:00 11/02/17 11:43 Vancomycin 1 Gm Premix - IVPB Not Given Q24H [facility] Protocol Insulin Aspart 1 vial 10/30/17 16:30 11/02/17 13:20 Novolog Vial Sliding Scale - SQ 2 units ACHS [facility] Administration Protocol Levothyroxine Sodium 100 mcg/ 175 mcg 10/31/17 07:00 11/02/17 06:41 Levothyroxine Sodium 75 mcg PO 175 mcg DAILY@0700 [facility] Administration Metoclopramide HCl 10 mg 11/02/17 11:17 11/02/17 13:09 Reglan - PO 10 mg TIDAC PRN Administration HICCUPS Nystatin 500,000 units 11/02/17 12:15 11/02/17 13:09 Nystatin Oral Suspension - PO 500,000 units Q6HPO [facility] Administration Pantoprazole Sodium 40 mg 10/31/17 10:00 11/02/17 11:16 Protonix Iv IVPUSH 40 mg DAILY [facility] Administration Potassium Phos/Sodium Phos 1 packet 10/30/17 22:00 11/02/17 13:09 Phos-Nak Packet - PO 1 packet TID [facility] Administration Rivaroxaban 15 mg 10/30/17 18:00 11/01/17 17:49 Xarelto - PO 15 mg DAILY@1800 [facility] Administration ASSESSMENT/PLAN: 77 y/o M w/ PMHx HTN, HLD, DM, afib, CV (2013 on AC) admitted from [facility] for septic shock 2/2 UTI #Cardiac -TTE cannot r/o vegetation on tricuspid valve, pending cardiology reccs for MERLE -cont Xarelto 15mg -cont Atenolol 100mg -troponemia d/t demand ischemia, now resolved -off pressors, off digoxin -Afib rate controlled #Hiccups -may be 2/2 cardiac irritation of vagus nerve -Protonix 40mg daily -Reglan 10mg TID PRN #UTI/Bacteremia -UCx: Proteus -BCx: Proteus and Staph capitis - cdiff negative -Ceftriaxone day 2, Vancomycin day 7 - f/u Dr. Dubon #Renal JET - resolved - likely secondary to septic shock # traumatic sarah - [place] 16 in - patient has a chronic sarah - f/u Dr. Rechtschaffen #Hypothyroidism - Levothyroxine 175 mcg po daily #DM - SSI - last A1C 5.6 from September #Hematology anemia - s/p 1 unit, hgb stable #DVT ppx - Xarelto #FEN - NS @ 100 - monitor BMP, Mg, Phos, replete as necessary - pureed diet with ensure (chocolate) #Dispo -tele Visit type - Emergency Visit Emergency Visit: No - New Patient This patient is new to me today: No - Critical Care Critical Care patient: No
--- NOTE | 2017-11-02 14:46 | PN ---
Teaching Attending Note Name of Resident: Jean Morocho ATTENDING PHYSICIAN STATEMENT I saw and evaluated the patient. I reviewed the resident's note and discussed the case with the resident. I agree with the resident's findings and plan as documented. SUBJECTIVE: Patient continues to have Hiccups, other ly no new complains. continues to have low grade fever. OBJECTIVE: Vital Signs Temperature 100.4 F H 11/02/17 08:51 Pulse Rate 89 11/02/17 08:51 Respiratory Rate 18 11/02/17 09:00 Blood Pressure 116/81 11/02/17 08:51 O2 Sat by Pulse Oximetry (%) 95 11/02/17 09:00 CBCD WBC 7.9 K/mm3 (4.0-10.0) 11/02/17 05:30 RBC 3.21 M/mm3 (4.00-5.60) L 11/02/17 05:30 Hgb 9.9 GM/dL (11.7-16.9) L 11/02/17 05:30 Hct 29.3 % (35.4-49) L 11/02/17 05:30 MCV 91.4 fl (80-96) 11/02/17 05:30 MCHC 33.6 g/dl (32.0-35.9) 11/02/17 05:30 RDW 15.3 % (11.9-15.9) 11/02/17 05:30 Plt Count 174 K/MM3 (134-434) D 11/02/17 05:30 MPV 8.5 fl (7.5-11.1) 11/02/17 05:30 CMP Sodium 141 mmol/L (136-145) 11/02/17 05:30 Potassium 3.9 mmol/L (3.5-5.1) 11/02/17 05:30 Chloride 105 mmol/L (98-107) 11/02/17 05:30 Carbon Dioxide 27 mmol/L (21-32) 11/02/17 05:30 Anion Gap 9 MMOL/L (8-16) 11/02/17 05:30 BUN 19 mg/dL (7-18) H 11/02/17 05:30 Creatinine 0.7 mg/dL (0.7-1.3) 11/02/17 05:30 Creat Clearance w eGFR > 60 (>60) 11/02/17 05:30 Random Glucose 92 mg/dL (74-106) 11/02/17 05:30 Calcium 7.6 mg/dL (8.5-10.1) L 11/02/17 05:30 Total Bilirubin 0.5 mg/dL (0.2-1.0) 11/02/17 05:30 AST 21 U/L (15-37) 11/02/17 05:30 ALT 30 U/L (12-78) 11/02/17 05:30 Alkaline Phosphatase 64 U/L (45-117) 11/02/17 05:30 Total Protein 5.0 g/dl (6.4-8.2) L 11/02/17 05:30 Albumin 2.0 g/dl (3.4-5.0) L 11/02/17 05:30 CARDIAC ENZYMES Creatine Kinase 246 IU/L (39-308) 10/28/17 12:19 Troponin I 0.12 ng/ml (0.00-0.05) H D 10/28/17 21:20 Current Medications Generic Name Dose Route Start Last Admin Trade Name Freq PRN Reason Stop Dose Admin Acetaminophen 650 mg 11/02/17 08:53 11/02/17 11:45 Tylenol - PO 650 mg Q4H PRN Administration FEVER Atenolol 100 mg 10/31/17 10:00 11/02/17 10:28 Tenormin - PO 100 mg DAILY [facility] Administration Benzocaine/Menthol 1 each 11/02/17 06:15 11/02/17 11:46 Cepacol Lozenge - MM 1 each PRN PRN Administration SORE THROAT Sodium Chloride 1,000 mls @ 100 mls/hr 10/30/17 15:58 11/02/17 00:19 Normal Saline - IV 100 mls/hr ASDIR [facility] Administration Ceftriaxone Sodium 2 gm/ 100 mls @ 200 mls/hr 11/01/17 10:00 11/02/17 10:28 Dextrose IVPB 200 mls/hr DAILY [facility] Administration Protocol Vancomycin HCl 1 gm in 200 mls @ 133.333 mls/hr 11/02/17 10:00 11/02/17 11:43 Vancomycin 1 Gm Premix - IVPB Not Given Q24H [facility] Protocol Insulin Aspart 1 vial 10/30/17 16:30 11/02/17 13:20 Novolog Vial Sliding Scale - SQ 2 units ACHS [facility] Administration Protocol Levothyroxine Sodium 100 mcg/ 175 mcg 10/31/17 07:00 11/02/17 06:41 Levothyroxine Sodium 75 mcg PO 175 mcg DAILY@0700 [facility] Administration Metoclopramide HCl 10 mg 11/02/17 11:17 11/02/17 13:09 Reglan - PO 10 mg TIDAC PRN Administration HICCUPS Nystatin 500,000 units 11/02/17 12:15 11/02/17 13:09 Nystatin Oral Suspension - PO 500,000 units Q6HPO [facility] Administration Pantoprazole Sodium 40 mg 10/31/17 10:00 11/02/17 11:16 Protonix Iv IVPUSH 40 mg DAILY [facility] Administration Potassium Phos/Sodium Phos 1 packet 10/30/17 22:00 11/02/17 13:09 Phos-Nak Packet - PO 1 packet TID [facility] Administration Rivaroxaban 15 mg 10/30/17 18:00 11/01/17 17:49 Xarelto - PO 15 mg DAILY@1800 [facility] Administration Home Medications Medication Instructions Recorded Atenolol [Tenormin -] 100 mg PO DAILY 10/27/17 Digoxin [Lanoxin -] 0.125 mg PO DAILY 10/27/17 Docusate Sodium [Colace] 300 mg PO HS 10/27/17 Hydrochlorothiazide 12.5 mg PO DAILY 10/27/17 Levothyroxine [Synthroid -] 175 mcg PO DAILY 10/27/17 Metformin HCl [Glucophage] 500 mg PO BID 10/27/17 Nitrofurantoin Macrocrystal 100 mg PO DAILY 10/27/17 [Nitrofurantoin] Nystatin Cream [Mycostatin Cream -] 1 applic TP BID 10/27/17 Ranitidine [Zantac -] 150 mg PO DAILY 10/27/17 Sennosides [Senna] 2 tab PO DAILY 10/27/17 Simvastatin 10 mg PO HS 10/27/17 Tamsulosin HCl [Flomax] 0.4 mg PO DAILY 10/27/17 10/27/17 05:45 Blood - Peripheral Venous Blood Culture - Final Proteus Mirabilis Staphylococcus Epidermidis 10/29/17 10:00 Blood - Peripheral Venous Blood Culture - Preliminary NO GROWTH OBTAINED AFTER 72 HOURS, INCUBATION TO CONTINUE FOR 2 DAYS. 10/29/17 09:45 Blood - Peripheral Venous Blood Culture - Preliminary NO GROWTH OBTAINED AFTER 72 HOURS, INCUBATION TO CONTINUE FOR 2 DAYS. 10/27/17 05:45 Blood - Peripheral Venous Blood Culture - Final Staph Capitis Subsp Ureolyticu 10/27/17 07:59 Urine - Urine Clean Catch Urine Culture - Final Proteus Mirabilis 10/27/17 11:00 Stool Clostridium difficile Antigen (CAREN) - Final 10/27/17 11:00 Stool Clostridium difficile Toxin Assay - Final ECHO: prosthetic Aov; cannot r/o veg on tricuspid valve; likely torn cordae tendonae.. carotid US: Moderate atherosclerotic disease, left greater than right, with stenoses in the 60-79% range involving the internal carotid arteries. Clinical correlation and follow-up studies recommended. Please see above discussion. PE:nice gentleman , alert, awake CVS:regularly- regular ,rate of 88, positive for click Abdominal CT (10/27/17):1. Right nephrolithiasis with no evidence of hydronephrosis or obstructive uropathy. 2. Thick-walled urinary bladder containing calculi. Air is also noted within the bladder that may be the result of recent instrumentation. 3. Chavez catheter within prostatic urethra. Repositioning recommended. 4. Air within the right common femoral vein of uncertain etiology. 5. Fecal impaction. Chest X-Ray (10/27/17): Large heart. Congestive changes. Right line in place. No pneumothorax. ASSESSMENT AND PLAN: Patient is a 77 y/o male with PMHx of HTN, HLD, DM, afib, and stroke (2014 on AC, Xarelto) who presented from [facility] for fever, hypotension and Hematuria. Laboratory Tests 10/28/17 10/28/17 11/01/17 10:34 21:20 11:00 Random Vancomycin 6.87 Vancomycin Pre-Dose 23.83 H* Digoxin 0.78 L 11/02/17 12:16 Random Vancomycin 16.56 Vancomycin Pre-Dose Digoxin # Echo positive for prosthetic AOV; cannot r/o veg on tricuspid valve; likely torn cordae tendonae, will discuss with Cardiology regarding MERLE.. #UTI: Proteus Mirabilis on iv Rocephin and Vancomycin # bacteremia due to Staph Capitis Subsp Ureolyticu sensitive to Vanco. and on Rocephin continue. repeat blood culture is negative # s/p Septic Shock, s/p pressors, levo and vasopressors. # Continues Hiccups: Protonix 40mg daily , will add one dose of Reglan po # s/p Hematuria resolved s/p 3 way catheter CBI, Urology , # JET due to obstructive uropathy , improved # Elevated Troponins most likely due demand ischemia echo reviewed , and repeat Trops. was elevated. cardio consult # Atrial Fibrillation with rate controlled off Digoxin , on 100mg atenolol, rate is controlled now, continue Xarelto 15mg # HTN s/p hypotension now on Atenolol 100mg # HLD on statins continue # NIDDMII sliding scale with coverage # Hypothyroidism continue oral synthroid # CAD s/p CABG 2012: will hold ASA due to hematuria #CVA in 2014: Continue Simvastatin 10mg , on XArelto #Constipation:Patient at [place] on senna, and colace. # Hx of Dementia: Currently on no medications # BPH:Continue Flomax Prophylaxis:High risk. SCD's for DVT. on Xarelto GI Px: PPI MERLE on Vanco level is 16.6 Hiccups ordered Nyastatin swish and swallow Tolerating puree/thin liquids. Persistent hiccups continueosly 6x per 1 minute , regardless with meals or not .
--- NOTE | 2017-11-02 16:26 | PN ---
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, Physician Chief Complaint: Pt A&Ox3; denies chest pain or trouble breathing; Still with hiccups History of Present Illness: Mr. Bains is a 77 you white male w/ pmh of dementia, GERD, HTN, HLD, afib, hypothyroidism, PH, DMII, known UTI on day 12 of 31 day course of macrobid who presents for evaluation of fever to 102.8 despite tylenol 650 and brown/margaret appearing urine. Patient reportedly at baseline per NH staff however concern for sepsis prompted transfer to ED. - Current Medication List Current Medications: Active Medications Acetaminophen (Tylenol -) 650 mg PO Q4H PRN PRN Reason: FEVER Last Admin: 11/02/17 11:45 Dose: 650 mg Atenolol (Tenormin -) 100 mg PO DAILY [facility] Last Admin: 11/02/17 10:28 Dose: 100 mg Benzocaine/Menthol (Cepacol Lozenge -) 1 each MM PRN PRN PRN Reason: SORE THROAT Last Admin: 11/02/17 11:46 Dose: 1 each Sodium Chloride (Normal Saline -) 1,000 mls @ 100 mls/hr IV ASDIR [facility] Last Admin: 11/02/17 00:19 Dose: 100 mls/hr Ceftriaxone Sodium 2 gm/ (Dextrose) 100 mls @ 200 mls/hr IVPB DAILY [facility]; Protocol Last Admin: 11/02/17 10:28 Dose: 200 mls/hr Vancomycin HCl (Vancomycin 1 Gm Premix -) 1 gm in 200 mls @ 133.333 mls/hr IVPB Q24H [facility]; Protocol Last Admin: 11/02/17 11:43 Dose: Not Given Insulin Aspart (Novolog Vial Sliding Scale -) 1 vial SQ ACHS [facility]; Protocol Last Admin: 11/02/17 13:20 Dose: 2 units Levothyroxine Sodium 100 mcg/ (Levothyroxine Sodium 75 mcg) 175 mcg PO DAILY@ 0700 [facility] Last Admin: 11/02/17 06:41 Dose: 175 mcg Metoclopramide HCl (Reglan -) 10 mg PO TIDAC PRN PRN Reason: HICCUPS Last Admin: 11/02/17 13:09 Dose: 10 mg Nystatin (Nystatin Oral Suspension -) 500,000 units PO Q6HPO [facility] Last Admin: 11/02/17 13:09 Dose: 500,000 units Pantoprazole Sodium (Protonix Iv) 40 mg IVPUSH DAILY [facility] Last Admin: 11/02/17 11:16 Dose: 40 mg Potassium Phos/Sodium Phos (Phos-Nak Packet -) 1 packet PO TID [facility] Last Admin: 11/02/17 13:09 Dose: 1 packet Rivaroxaban (Xarelto -) 15 mg PO DAILY@1800 [facility] Last Admin: 11/01/17 17:49 Dose: 15 mg - Objective Vital Signs: Vital Signs Temperature 99.8 F H 11/02/17 14:35 Pulse Rate 83 11/02/17 14:35 Respiratory Rate 20 11/02/17 14:35 Blood Pressure 107/67 11/02/17 14:35 O2 Sat by Pulse Oximetry (%) 95 11/02/17 09:00 Labs: CBC, BMP 11/02/17 05:30 11/02/17 05:30 INR, PTT INR 1.43 (0.83-1.09) H 10/29/17 05:30 Problem List - Problems (1) History of aortic valve replacement with bioprosthetic valve Assessment/Plan: Pt once again febrile. ECHO noted difficulty assessing bioprosthetic aortic valve; + torn corda; could not r/o tricuspid valve vegetation. F/u cultures; antibiotics per ID. For MERLE 11/04/[address] Ibarra. Code(s): Z95.3 - PRESENCE OF XENOGENIC HEART VALVE (2) Hematuria Code(s): R31.9 - HEMATURIA, UNSPECIFIED Qualifiers: Hematuria type: gross Qualified Code(s): R31.0 - Gross hematuria (3) Septic shock Assessment/Plan: On antibiotics. Fluids. F/u cultures. No longer on pressors. Code(s): A41.9 - SEPSIS, UNSPECIFIED ORGANISM; R65.21 - SEVERE SEPSIS WITH SEPTIC SHOCK
[2017-11-02] MEDS: RIVAROXABAN 15 MG TABLET PO SCH (17:22)
[2017-11-03] MEDS: INSULIN SLIDING SCALE (NOVOLOG) 1 VIAL SQ SCH ×5 (00:30→21:51)
[2017-11-03] MEDS: NYSTATIN 500,000 UNITS/5 ML SUSPENSION PO SCH ×4 (00:43→17:42)
[2017-11-03] MEDS ORDERED: LEVOTHYROXINE NA 75 MCG TABLET (FP) ONE (06:16)
[2017-11-03] MEDS ORDERED: LEVOTHYROXINE NA 100 MCG TABLET (FP) ONE (06:17)
[2017-11-03] MEDS: LEVOTHYROXINE 100 MCG, LEVOTHYROXINE 75 MCG PO SCH (06:22)
[2017-11-03] MEDS: NAPH,MB-DB/K PH,MBDB POWDER PACKET PO SCH ×3 (06:23→21:51)
[2017-11-03 07:37] LABS: ANION GAP 5 MMOL/L (8-16); BLOOD UREA NITROGEN 19 mg/dL (7-18); CALCIUM 7.6 mg/dL (8.5-10.1); CHLORIDE 106 mmol/L (98-107); CO2 30 mmol/L (21-32); CREATININE 0.8 mg/dL (0.7-1.3); GLUCOSE,RANDOM 92 mg/dL (74-106); MAGNESIUM 1.7 mg/dL (1.8-2.4); PHOSPHOROUS 3.4 mg/dL (2.5-4.9); POTASSIUM 3.9 mmol/L (3.5-5.1); SODIUM 141 mmol/L (136-145)
[2017-11-03 07:54] LABS: BASO % 0.8 % (0-2.0); EOS % 2.4 % (0-4.5); HEMATOCRIT 26.4 % (35.4-49); HEMOGLOBIN 9.6 GM/dL (11.7-16.9); LYMPH % 15.5 % (8-40); MCH 36.8 pg (25.7-33.7); MCHC 36.4 g/dl (32.0-35.9); MEAN CELL VOLUME 101.2 fl (80-96); MEAN PLT VOLUME 8.3 fl (7.5-11.1); MONO % 9.8 % (3.8-10.2); NEUT % 71.5 % (42.8-82.8); PLATELET COUNT 204 K/MM3 (134-434); RBC 2.61 M/mm3 (4.00-5.60); RDW 15.3 % (11.9-15.9); WHITE BLOOD COUNT 5.5 K/mm3 (4.0-10.0)
--- NOTE | 2017-11-03 08:42 | PN ---
Physical Exam: SUBJECTIVE: Patient seen and examined at bedside. Fully oriented. Complains of intractable hiccups x 5 days. No SOB, no pain. Fever to 100.4 yesterday. OBJECTIVE: Vital Signs Period Temp Pulse Resp BP Sys/Avelar Pulse Ox Last 24 Hr 98.0 F-100.4 F 83-96 18-20 107-142/67-82 95-97 GENERAL: A&Ox3, intractable hiccuping HEAD: NC/AT EYES: PERRLA, EOMI LUNGS: Unable to assess HEART: Irregularly irregular, tachy ABDOMEN:soft, tenderness to lower abdominal palpation NEUROLOGIC: L LE 0/5 LUE 3/5 forearm flexion, 0/5 shoulder abduction/adduction, R extremities 5/5 EXTREMITIES: No stigmata of endocarditis. No calf tenderness. No peripheral edema. SKIN: Warm, dry, normal turgor, no rashes or lesions noted. Laboratory Results - last 24 hr 11/02/17 11/02/17 11/02/17 05:30 12:16 12:25 WBC RBC Hgb Hct MCV MCH MCHC RDW Plt Count MPV Absolute Neuts (auto) Neutrophils % Neutrophils % (Manual) 68.3 Band Neutrophils % 3.9 Lymphocytes % Lymphocytes % (Manual) 9.9 D Monocytes % Monocytes % (Manual) 12 H Eosinophils % Eosinophils % (Manual) 0.0 D Basophils % Basophils % (Manual) 1.0 D Myelocytes % (Man) 1 D Promyelocytes % (Man) 0 Blast Cells % (Manual) 0 Nucleated RBC % Metamyelocytes 2 Anisocytosis 1+ Macrocytosis 1+ Sodium Potassium Chloride Carbon Dioxide Anion Gap BUN Creatinine Creat Clearance w eGFR POC Glucometer 199 Random Glucose Calcium Phosphorus Magnesium Random Vancomycin 16.56 11/02/17 11/02/17 11/03/17 17:32 22:01 05:30 WBC 5.5 RBC 2.61 L Hgb 9.6 L Hct 26.4 L MCV 101.2 H MCH 36.8 H D MCHC 36.4 H RDW 15.3 Plt Count 204 MPV 8.3 Absolute Neuts (auto) 3.9 Neutrophils % 71.5 Neutrophils % (Manual) Band Neutrophils % Lymphocytes % 15.5 Lymphocytes % (Manual) Monocytes % 9.8 Monocytes % (Manual) Eosinophils % 2.4 Eosinophils % (Manual) Basophils % 0.8 Basophils % (Manual) Myelocytes % (Man) Promyelocytes % (Man) Blast Cells % (Manual) Nucleated RBC % 0 Metamyelocytes Anisocytosis Macrocytosis Sodium Potassium Chloride Carbon Dioxide Anion Gap BUN Creatinine Creat Clearance w eGFR POC Glucometer 99 145 Random Glucose Calcium Phosphorus Magnesium Random Vancomycin 11/03/17 11/03/17 05:30 06:13 WBC RBC Hgb Hct MCV MCH MCHC RDW Plt Count MPV Absolute Neuts (auto) Neutrophils % Neutrophils % (Manual) Band Neutrophils % Lymphocytes % Lymphocytes % (Manual) Monocytes % Monocytes % (Manual) Eosinophils % Eosinophils % (Manual) Basophils % Basophils % (Manual) Myelocytes % (Man) Promyelocytes % (Man) Blast Cells % (Manual) Nucleated RBC % Metamyelocytes Anisocytosis Macrocytosis Sodium 141 Potassium 3.9 Chloride 106 Carbon Dioxide 30 Anion Gap 5 L BUN 19 H Creatinine 0.8 Creat Clearance w eGFR > 60 POC Glucometer 115 Random Glucose 92 Calcium 7.6 L Phosphorus 3.4 Magnesium 1.7 L Random Vancomycin Active Medications Generic Name Dose Route Start Last Admin Trade Name Freq PRN Reason Stop Dose Admin Acetaminophen 650 mg 11/02/17 08:53 11/02/17 11:45 Tylenol - PO 650 mg Q4H PRN Administration FEVER Atenolol 100 mg 10/31/17 10:00 11/02/17 10:28 Tenormin - PO 100 mg DAILY [facility] Administration Benzocaine/Menthol 1 each 11/02/17 06:15 11/02/17 21:58 Cepacol Lozenge - MM 1 each PRN PRN Administration SORE THROAT Sodium Chloride 1,000 mls @ 100 mls/hr 10/30/17 15:58 11/02/17 00:19 Normal Saline - IV 100 mls/hr ASDIR [facility] Administration Ceftriaxone Sodium 2 gm/ 100 mls @ 200 mls/hr 11/01/17 10:00 11/02/17 10:28 Dextrose IVPB 200 mls/hr DAILY [facility] Administration Protocol Vancomycin HCl 1 gm in 200 mls @ 133.333 mls/hr 11/02/17 10:00 11/02/17 11:43 Vancomycin 1 Gm Premix - IVPB Not Given Q24H [facility] Protocol Insulin Aspart 1 vial 10/30/17 16:30 11/03/17 06:23 Novolog Vial Sliding Scale - SQ Not Given ACHS [facility] Protocol Levothyroxine Sodium 100 mcg/ 175 mcg 10/31/17 07:00 11/03/17 06:22 Levothyroxine Sodium 75 mcg PO 175 mcg DAILY@0700 [facility] Administration Magnesium Sulfate 1 gm 11/03/17 07:49 Magnesium Sulfate IVPB 11/03/17 07:50 ONCE ONE Metoclopramide HCl 10 mg 11/02/17 11:17 11/02/17 13:09 Reglan - PO 10 mg TIDAC PRN Administration HICCUPS Nystatin 500,000 units 11/02/17 12:15 11/03/17 06:23 Nystatin Oral Suspension - PO 500,000 units Q6HPO [facility] Administration Pantoprazole Sodium 40 mg 10/31/17 10:00 11/02/17 11:16 Protonix Iv IVPUSH 40 mg DAILY [facility] Administration Potassium Phos/Sodium Phos 1 packet 10/30/17 22:00 11/03/17 06:23 Phos-Nak Packet - PO 1 packet TID [facility] Administration Rivaroxaban 15 mg 10/30/17 18:00 11/02/17 17:22 Xarelto - PO 15 mg DAILY@1800 [facility] Administration ASSESSMENT/PLAN: 77 y/o M w/ PMHx HTN, HLD, DM, afib, CV (2013 on AC) admitted from [facility] for septic shock 2/2 UTI #Cardiac -TTE cannot r/o vegetation on tricuspid valve -MERLE on 11/04 w/ doctor Ibarra -cont Xarelto 15mg -cont Atenolol 100mg -troponemia d/t demand ischemia, now resolved -off pressors, off digoxin -Afib rate controlled #Hiccups -may be 2/2 cardiac irritation of vagus nerve -Protonix 40mg daily -Reglan d/c'd -Klonopin .25 BID PRN #LE edema -Duplex to r/o DVT #UTI/Bacteremia -UCx: Proteus -BCx: Proteus and Staph capitis - cdiff negative -Ceftriaxone day 3, Vancomycin day 8 - f/u Dr. Dubon -new BCx pending given fever 100.[address] 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 Ramos #Hypothyroidism - Levothyroxine 175 mcg po daily #DM - SSI - last A1C 5.6 from September #DVT ppx - Xarelto #FEN - NS @ 100 - monitor BMP, Mg, Phos, replete as necessary - pureed diet with ensure (chocolate), NPO after midnight #Dispo -tele Visit type - Emergency Visit Emergency Visit: No - New Patient This patient is new to me today: No - Critical Care Critical Care patient: No
[2017-11-03] MEDS ORDERED: MAGNESIUM 1GM/D5W 100ML - 100 ML IVPB IVPB ONE (09:00)
[2017-11-03] MEDS ORDERED: DEXTROSE 5%-WATER 200 ML IVPB ONE (09:18)
[2017-11-03] MEDS: CEFTRIAXONE 2 GM in DEXTROSE 5%-WATER 100 ML IVPB SCH (10:22)
[2017-11-03] MEDS: ATENOLOL 50 MG TABLET (FP) PO SCH (10:22)
[2017-11-03] MEDS: PANTOPRAZOLE SODIUM 40 MG VIAL IVPUSH SCH (10:25)
--- NOTE | 2017-11-03 10:45 | PN ---
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, Physician History of Present Illness: PULMONARY ALERT,NO DISTRESS,-SOB,HICCUPS IMPROVING - Current Medication List Current Medications: Active Medications Acetaminophen (Tylenol -) 650 mg PO Q4H PRN PRN Reason: FEVER Last Admin: 11/02/17 11:45 Dose: 650 mg Atenolol (Tenormin -) 100 mg PO DAILY [facility] Last Admin: 11/03/17 10:22 Dose: 100 mg Benzocaine/Menthol (Cepacol Lozenge -) 1 each MM PRN PRN PRN Reason: SORE THROAT Last Admin: 11/02/17 21:58 Dose: 1 each Sodium Chloride (Normal Saline -) 1,000 mls @ 100 mls/hr IV ASDIR [facility] Last Admin: 11/02/17 00:19 Dose: 100 mls/hr Ceftriaxone Sodium 2 gm/ (Dextrose) 100 mls @ 200 mls/hr IVPB DAILY [facility]; Protocol Last Admin: 11/03/17 10:22 Dose: 200 mls/hr Vancomycin HCl (Vancomycin 1 Gm Premix -) 1 gm in 200 mls @ 133.333 mls/hr IVPB Q24H [facility]; Protocol Last Admin: 11/02/17 11:43 Dose: Not Given Insulin Aspart (Novolog Vial Sliding Scale -) 1 vial SQ ACHS [facility]; Protocol Last Admin: 11/03/17 06:23 Dose: Not Given Levothyroxine Sodium 100 mcg/ (Levothyroxine Sodium 75 mcg) 175 mcg PO DAILY@ 0700 [facility] Last Admin: 11/03/17 06:22 Dose: 175 mcg Metoclopramide HCl (Reglan -) 10 mg PO TIDAC PRN PRN Reason: HICCUPS Last Admin: 11/02/17 13:09 Dose: 10 mg Nystatin (Nystatin Oral Suspension -) 500,000 units PO Q6HPO [facility] Last Admin: 11/03/17 06:23 Dose: 500,000 units Pantoprazole Sodium (Protonix Iv) 40 mg IVPUSH DAILY [facility] Last Admin: 11/03/17 10:25 Dose: 40 mg Potassium Phos/Sodium Phos (Phos-Nak Packet -) 1 packet PO TID [facility] Last Admin: 11/03/17 06:23 Dose: 1 packet Rivaroxaban (Xarelto -) 15 mg PO DAILY@1800 [facility] Last Admin: 11/02/17 17:22 Dose: 15 mg - Objective Vital Signs: Vital Signs Temperature 98.3 F 11/03/17 05:00 Pulse Rate 96 H 11/03/17 05:00 Respiratory Rate 18 11/03/17 05:00 Blood Pressure 136/81 11/03/17 05:00 O2 Sat by Pulse Oximetry (%) 97 11/02/17 21:00 Constitutional: Yes: Calm, Thin Eyes: Yes: WNL HENT: Yes: WNL Neck: Yes: WNL Cardiovascular: Yes: Pulse Irregular, S1, S2 Respiratory: Yes: Diminished Gastrointestinal: Yes: Normal Bowel Sounds, Soft Extremities: Yes: WNL Edema: No Labs: CBC, BMP 11/03/17 05:30 11/03/17 05:30 INR, PTT INR 1.43 (0.83-1.09) H 10/29/17 05:30 Problem List - Problems (1) Atrial fibrillation Code(s): I48.91 - UNSPECIFIED ATRIAL FIBRILLATION (2) History of aortic valve replacement with bioprosthetic valve Code(s): Z95.3 - PRESENCE OF XENOGENIC HEART VALVE (3) Hypothyroidism Code(s): E03.9 - HYPOTHYROIDISM, UNSPECIFIED (4) Sepsis Code(s): A41.9 - SEPSIS, UNSPECIFIED ORGANISM Qualifiers: Sepsis type: sepsis due to unspecified organism Qualified Code(s): A41.9 - Sepsis, unspecified organism (5) Hiccups Code(s): R06.6 - HICCOUGH (6) Hematuria Code(s): R31.9 - HEMATURIA, UNSPECIFIED Qualifiers: Hematuria type: gross Qualified Code(s): R31.0 - Gross hematuria Assessment/Plan A/P Polymicrobial Bacteremia UTI Hematuria Septic Shock resolved Acute Kidney Injury Lactic Acidosis +Troponins likely Demand Ischemia Atrial Fibrillation HTN Hyperlipidemia Hypothyroidism Hiccups - broad spectrum antibiotics as per ID - rate control - continue anticoagulation - monitor urine output, creatinine - DVT/GI prophylaxis DR NUGENT
--- NOTE | 2017-11-03 11:36 | PN ---
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, Physician History of Present Illness: Mr. Bains is a 77 you white male w/ pmh of dementia, GERD, HTN, HLD, afib, hypothyroidism, PH, DMII, known UTI on day 12 of 31 day course of macrobid who presents for evaluation of fever to 102.8 despite tylenol 650 and brown/margaret appearing urine. Patient reportedly at baseline per NH staff however concern for sepsis prompted transfer to ED. - Current Medication List Current Medications: Active Medications Acetaminophen (Tylenol -) 650 mg PO Q4H PRN PRN Reason: FEVER Last Admin: 11/02/17 11:45 Dose: 650 mg Atenolol (Tenormin -) 100 mg PO DAILY [facility] Last Admin: 11/03/17 10:22 Dose: 100 mg Benzocaine/Menthol (Cepacol Lozenge -) 1 each MM PRN PRN PRN Reason: SORE THROAT Last Admin: 11/02/17 21:58 Dose: 1 each Sodium Chloride (Normal Saline -) 1,000 mls @ 100 mls/hr IV ASDIR [facility] Last Admin: 11/02/17 00:19 Dose: 100 mls/hr Ceftriaxone Sodium 2 gm/ (Dextrose) 100 mls @ 200 mls/hr IVPB DAILY [facility]; Protocol Last Admin: 11/03/17 10:22 Dose: 200 mls/hr Vancomycin HCl (Vancomycin 1 Gm Premix -) 1 gm in 200 mls @ 133.333 mls/hr IVPB Q24H [facility]; Protocol Last Admin: 11/02/17 11:43 Dose: Not Given Insulin Aspart (Novolog Vial Sliding Scale -) 1 vial SQ ACHS [facility]; Protocol Last Admin: 11/03/17 06:23 Dose: Not Given Levothyroxine Sodium 100 mcg/ (Levothyroxine Sodium 75 mcg) 175 mcg PO DAILY@ 0700 [facility] Last Admin: 11/03/17 06:22 Dose: 175 mcg Metoclopramide HCl (Reglan -) 10 mg PO TIDAC PRN PRN Reason: HICCUPS Last Admin: 11/02/17 13:09 Dose: 10 mg Nystatin (Nystatin Oral Suspension -) 500,000 units PO Q6HPO [facility] Last Admin: 11/03/17 06:23 Dose: 500,000 units Pantoprazole Sodium (Protonix Iv) 40 mg IVPUSH DAILY [facility] Last Admin: 11/03/17 10:25 Dose: 40 mg Potassium Phos/Sodium Phos (Phos-Nak Packet -) 1 packet PO TID [facility] Last Admin: 11/03/17 06:23 Dose: 1 packet Rivaroxaban (Xarelto -) 15 mg PO DAILY@1800 [facility] Last Admin: 11/02/17 17:22 Dose: 15 mg - Objective Vital Signs: Vital Signs Temperature 98.3 F 11/03/17 05:00 Pulse Rate 96 H 11/03/17 05:00 Respiratory Rate 18 11/03/17 05:00 Blood Pressure 136/81 11/03/17 05:00 O2 Sat by Pulse Oximetry (%) 97 11/02/17 21:00 Eyes: Yes: WNL, Conjunctiva Clear, EOM Intact HENT: Yes: WNL, Atraumatic, Normocephalic Neck: Yes: WNL, Supple, Trachea Midline Cardiovascular: Yes: WNL, Regular Rate and Rhythm Respiratory: Yes: WNL, Regular, CTA Bilaterally Gastrointestinal: Yes: WNL, Normal Bowel Sounds Genitourinary: Yes: WNL Musculoskeletal: Yes: WNL Extremities: Yes: WNL Edema: No Integumentary: Yes: WNL Neurological: Yes: WNL, Alert, Oriented ...Motor Strength: WNL Psychiatric: Yes: WNL Labs: CBC, BMP 11/03/17 05:30 11/03/17 05:30 INR, PTT INR 1.43 (0.83-1.09) H 10/29/17 05:30 Assessment/Plan - Problems (1) History of aortic valve replacement with bioprosthetic valve Assessment/Plan: Pt once again febrile. ECHO noted difficulty assessing bioprosthetic aortic valve; + torn corda; could not r/o tricuspid valve vegetation. F/u cultures; antibiotics per ID. For MERLE 11/04/[address] bIarra. Code(s): Z95.3 - PRESENCE OF XENOGENIC HEART VALVE (2) Hematuria Code(s): R31.9 - HEMATURIA, UNSPECIFIED Qualifiers: Hematuria type: gross Qualified Code(s): R31.0 - Gross hematuria (3) Septic shock Assessment/Plan: On antibiotics. Fluids. F/u cultures. No longer on pressors. Code(s): A41.9 - SEPSIS, UNSPECIFIED ORGANISM; R65.21 - SEVERE SEPSIS WITH SEPTIC SHOCK
--- NOTE | 2017-11-03 11:47 | PN ---
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, [employer] - Note 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: Selected Entries 11/02/17 11/02/17 11/02/17 01:00 06:00 08:51 Breakfast Supper Temperature 99.3 F 99.0 F 100.4 F H 11/02/17 11/02/17 11/02/17 12:03 14:35 17:00 Breakfast 50% Supper Temperature 99.8 F H 98.0 F 11/02/17 11/03/17 11/03/17 19:51 01:00 05:00 Breakfast Supper 25% Temperature 98.7 F 98.3 F 11/03/17 09:00 Breakfast Supper Temperature 98.5 F Laboratory Tests 11/03/17 05:30 WBC 5.5 Performance similar to yesterday.Hiccoughs. Nystatin/Reglan/Cepacol drops ordered. Pending MERLE tomorrow.
[2017-11-03] MEDS ORDERED: clonazePAM 0.5 MG TABLET PO PRN (12:48)
[2017-11-03] MEDS: BENZOCAINE/MENTH/CETYLPYRD CL 1 EACH LOZENGE MM PRN ×2 (13:41→21:51)
[2017-11-03 13:50] LABS: ANISOCYTOSIS 1+; MACROCYTOSIS 2+; PLATELET ESTIMATE NORMAL
[2017-11-03 15:37] VITALS: BMI 25.9
[2017-11-03] MEDS: SODIUM CHLORIDE 1,000 ML IV SCH (17:36)
[2017-11-03] MEDS: RIVAROXABAN 15 MG TABLET PO SCH (17:42)
--- NOTE | 2017-11-03 17:48 | PN ---
Teaching Attending Note Name of Resident: Jean Morocho ATTENDING PHYSICIAN STATEMENT I saw and evaluated the patient. I reviewed the resident's note and discussed the case with the resident. I agree with the resident's findings and plan as documented. SUBJECTIVE:seen at 10 am no fever or chills. has hiccups on and off. cont karen have BMs OBJECTIVE: NAD CV: RRR Lungs: CTAB Ext : non pitting edema on LUE and LLE Abd: soft, TTP in all quadrants. hyperactive BS ASSESSMENT AND PLAN: 77 y/o man with h/o HTN, HLP, DM, CVA, with L sided weakness, hypothyroidism, A fib, CAD s/p VABG, Bioprosthetic AVR , who presneted with hypotension and hematuria and was found to have septic shock and bacteremia with UTI 1- septic shock : resolved 2- proteus UTI 3- Proteus bacteremia: form UTI source 4- + blood cx for staph capitis : ? significance 5- Bioprosthetic AvR . 6- A fib 7- elevated trop 8- Hiccups 9- urinary retention , s/p sarah change this admission Plan : - cont ceftriaxone and vanco - vanco was held this am - MERLE tomorrow to r/o vegetations - try klonopin for hiccups - cont reglan - KUB obtained. no bowel dilation despite hyperactive BS - rate controlled. of dig, cont atenolol and NOACs. can resume dig at dc - urology follow up for sarah and urinary retention HLOC
[2017-11-03] MEDS ORDERED: PT OWN MED DRAWER 7, Y5N ONE (21:48)
[2017-11-04] MEDS: NYSTATIN 500,000 UNITS/5 ML SUSPENSION PO SCH ×4 (00:53→17:40)
[2017-11-04] MEDS: INSULIN SLIDING SCALE (NOVOLOG) 1 VIAL SQ SCH ×4 (06:10→21:25)
[2017-11-04] MEDS: NAPH,MB-DB/K PH,MBDB POWDER PACKET PO SCH ×3 (06:10→21:50)
[2017-11-04] MEDS: LEVOTHYROXINE 100 MCG, LEVOTHYROXINE 75 MCG PO SCH (06:11)
[2017-11-04 06:42] LABS: BASO % 0.4 % (0-2.0); EOS % 1.8 % (0-4.5); HEMATOCRIT 29.4 % (35.4-49); HEMOGLOBIN 9.8 GM/dL (11.7-16.9); LYMPH % 17.8 % (8-40); MCH 31.7 pg (25.7-33.7); MCHC 33.2 g/dl (32.0-35.9); MEAN CELL VOLUME 95.4 fl (80-96); MEAN PLT VOLUME 7.9 fl (7.5-11.1); MONO % 10.3 % (3.8-10.2); NEUT % 69.7 % (42.8-82.8); PLATELET COUNT 248 K/MM3 (134-434); RBC 3.08 M/mm3 (4.00-5.60); RDW 15.4 % (11.9-15.9); WHITE BLOOD COUNT 5.6 K/mm3 (4.0-10.0)
[2017-11-04 07:39] LABS: ANION GAP 8 MMOL/L (8-16); BLOOD UREA NITROGEN 17 mg/dL (7-18); CALCIUM 7.8 mg/dL (8.5-10.1); CHLORIDE 104 mmol/L (98-107); CO2 29 mmol/L (21-32); CREATININE 0.8 mg/dL (0.7-1.3); GLUCOSE,RANDOM 111 mg/dL (74-106); PHOSPHOROUS 3.2 mg/dL (2.5-4.9); POTASSIUM 4.2 mmol/L (3.5-5.1); SODIUM 141 mmol/L (136-145)
--- NOTE | 2017-11-04 08:35 | PN ---
Teaching Attending Note Name of Resident: Jean Morocho ATTENDING PHYSICIAN STATEMENT I saw and evaluated the patient. I reviewed the resident's note and discussed the case with the resident. I agree with the resident's findings and plan as documented. SUBJECTIVE: No fever or chills, denies any pain. cont to have Hiccups OBJECTIVE: NAD CV: irreg irreg , no MRG Lungs: CTAB Ext : non pitting edema on LUE and LLE Abd: soft, NT, ND. Nl BS ASSESSMENT AND PLAN: 77 y/o man with h/o HTN, HLP, DM, CVA, with L sided weakness, hypothyroidism, A fib, CAD s/p VABG, Bioprosthetic AVR , who presneted with hypotension and hematuria and was found to have septic shock and bacteremia with UTI 1- septic shock : resolved 2- proteus UTI 3- Proteus bacteremia: form source 4- + blood cx for staph capitis : ? significance 5- Bioprosthetic AvR . 6- A fib 7- elevated trop 8- Hiccups 9- urinary retention , s/p sarah change this admission Plan : - cont ceftriaxone and vanco ( vanc was held yesterday) . - MERLE today r/o vegetations. decision on Abx to follow - repeat blood cx neg to date - Try klonopin again for hiccups. No evidence of obstruction on KUB . will ask GI help - cont reglan - rate controlled. off dig, cont atenolol and xarelto( lower dose due to bleeding ) . can resume dig at dc - urology follow up for sarah and urinary retention HLOC
[2017-11-04] MEDS ORDERED: DEXTROSE 5%-WATER 100 ML IVPB ONE (08:43)
[2017-11-04] MEDS: CEFTRIAXONE 2 GM in DEXTROSE 5%-WATER 100 ML IVPB SCH (09:08)
[2017-11-04] MEDS: PANTOPRAZOLE SODIUM 40 MG VIAL IVPUSH SCH (09:08)
[2017-11-04] MEDS ORDERED: LIDOCAINE VISCOUS 2% ORAL/TOP 20 ML UNIT-DOSE CUP ONE (09:58)
[2017-11-04] MEDS ORDERED: LIDOCAINE VISCOUS 2% ORAL/TOP 20 ML UNIT-DOSE CUP MM ONE (10:40)
[2017-11-04 11:11] LABS: ANISOCYTOSIS 0; MACROCYTOSIS 0; PLATELET ESTIMATE NORMAL
--- NOTE | 2017-11-04 11:25 | ECHO ---
Name: DAMMAS, AUGUST Exam:Transesophageal Echocardiogram Study Date: 11/04/2017 10:35 AM Age: 77 yrs Reason For Study: R/O Endocarditis Height: 72 in Weight: 191 lb BSA: 2.1 m2 Procedure: A 2D transesophageal echocardiogram with Doppler and color flow Doppler was performed. Informed conse nt for Transesophageal Echocardiogram, and use of a contrast agent as needed, was obtained prior to the proc edure. The patient was brought to the endoscopy suite in a fasting state. An intravenous line was placed. A topical anesthetic agent was used for oropharangeal anesthesia. A bite block was inserted. IV concious sedati on was administered using propafol. A multifrequency, multiplane transesopheageal echocardiographic endoscop e was inserted and manipulated in the standard fashion to achieve multiplane views. The usual views were ob tained; basal, mid-esophageal, transgastric and aortic views. The patient's vital signs, including blood pres sure, heart rate, pulse oximetry and cardiac rhythm were monitored throughout the procedure and remained st able. The patient tolerated the procedure well without evidence of orophangeal or esophageal trauma. There were no complications. The patient was in atrial fibrillation with controlled ventricular rate during the exa m. Left Ventricle The left ventricle is normal in size. Left ventricular systolic function is normal. No regional wall motion abnormalities noted. Atria The left atrial size is normal. No thrombus is detected in the left atrial appendage. Spontaneous con trast in left atrial appendage. No left atrial mass or thrombus visualized. Chiari network (normal variant) is noted. The interatrial septum is intact with no evidence for an atrial septal defect. Injection of contrast documented no interatrial shunt. Mitral Valve Mitral valve leaflet appears mildly redundant (anterior leaflet). There is no vegetation seen on the mitral valve. There is mild mitral regurgitation. Tricuspid Valve There is mild tricuspid valve thickening. There is mild tricuspid valve prolapse. No evidence of rupt ured chordae tendinae of tricuspid valve. There is no tricuspid valve vegetation. There is mild to moderat e tricuspid regurgitation. Aortic Valve There is a bioprosthetic aortic valve. The prosthetic aortic valve is well-seated. The prosthetic aor tic valve appears to open well. There is no aortic valvular vegetation. Trace to mild aortic regurgitation. Pulmonic Valve The pulmonic valve is not well visualized. Great Vessels Small atherosclerotic plaque in descending thoracic aorta. Pericardium/Pluera There is no pericardial effusion. Interpretation Summary The left ventricle is normal in size. Left ventricular systolic function is normal. No regional wall motion abnormalities noted. The left atrial size is normal. No thrombus is detected in the left atrial appendage. No left atrial mass or thrombus visualized. Spontaneous contrast in left atrial appendage. Chiari network (normal variant) is noted. Color Doppler reveals no evidence of flow across foramen ovale and injection of contrast documented n o interatrial shunt. Mitral valve leaflet appears mildly redundant (anterior leaflet) There is mild mitral regurgitation. There is mild tricuspid valve thickening. There is mild tricuspid valve prolapse. No evidence of ruptured chordae tendinae of tricuspid valve There is no tricuspid valve vegetation. There is mild to moderate tricuspid regurgitation. There is a bioprosthetic aortic valve. The prosthetic aortic valve is well-seated. The prosthetic aortic valve appears to open well. There is no aortic valvular vegetation. Trace to mild aortic regurgitation. Small atherosclerotic plaque in descending thoracic aorta There is no pericardial effusion. Charlie Ibarra MD 11/04/2017 11:18 AM
[2017-11-04] MEDS: VANCOMYCIN 1 GM PREMIX - 1 GM/200 ML BAG IVPB SCH (12:04)
--- NOTE | 2017-11-04 12:18 | PN ---
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, Physician Chief Complaint: Pt A&Ox3; asymptomatic. Awaits MERLE today. History of Present Illness: Mr. Bains is a 77 you white male w/ pmh of dementia, GERD, HTN, HLD, afib, hypothyroidism, PH, DMII, known UTI on day 12 of 31 day course of macrobid who presents for evaluation of fever to 102.8 despite tylenol 650 and brown/margaret appearing urine. Patient reportedly at baseline per NH staff however concern for sepsis prompted transfer to ED. - Current Medication List Current Medications: Active Medications Acetaminophen (Tylenol -) 650 mg PO Q4H PRN PRN Reason: FEVER Last Admin: 11/02/17 11:45 Dose: 650 mg Atenolol (Tenormin -) 100 mg PO DAILY [facility] Last Admin: 11/03/17 10:22 Dose: 100 mg Benzocaine/Menthol (Cepacol Lozenge -) 1 each MM PRN PRN PRN Reason: SORE THROAT Last Admin: 11/03/17 21:51 Dose: 1 each Clonazepam (Klonopin -) 0.25 mg PO BID PRN PRN Reason: ANXIETY Sodium Chloride (Normal Saline -) 1,000 mls @ 100 mls/hr IV ASDIR [facility] Last Admin: 11/03/17 17:36 Dose: 100 mls/hr Ceftriaxone Sodium 2 gm/ (Dextrose) 100 mls @ 200 mls/hr IVPB DAILY [facility]; Protocol Last Admin: 11/04/17 09:08 Dose: 200 mls/hr Vancomycin HCl (Vancomycin 1 Gm Premix -) 1 gm in 200 mls @ 133.333 mls/hr IVPB Q24H [facility]; Protocol Last Admin: 11/04/17 12:04 Dose: 133.333 mls/hr Insulin Aspart (Novolog Vial Sliding Scale -) 1 vial SQ ACHS [facility]; Protocol Last Admin: 11/04/17 12:09 Dose: Not Given Levothyroxine Sodium 100 mcg/ (Levothyroxine Sodium 75 mcg) 175 mcg PO DAILY@ 0700 [facility] Last Admin: 11/04/17 06:11 Dose: Not Given Nystatin (Nystatin Oral Suspension -) 500,000 units PO Q6HPO [facility] Last Admin: 11/04/17 06:10 Dose: Not Given Pantoprazole Sodium (Protonix Iv) 40 mg IVPUSH DAILY [facility] Last Admin: 11/04/17 09:08 Dose: 40 mg Potassium Phos/Sodium Phos (Phos-Nak Packet -) 1 packet PO TID [facility] Last Admin: 11/04/17 06:10 Dose: Not Given Rivaroxaban (Xarelto -) 15 mg PO DAILY@1800 [facility] Last Admin: 11/03/17 17:42 Dose: 15 mg - Objective Vital Signs: Vital Signs Temperature 98.1 F 11/04/17 11:36 Pulse Rate 74 11/04/17 11:36 Respiratory Rate 20 11/04/17 11:36 Blood Pressure 124/76 11/04/17 11:36 O2 Sat by Pulse Oximetry (%) 100 11/04/17 11:36 Constitutional: Yes: Calm Eyes: Yes: WNL HENT: Yes: WNL Neck: Yes: WNL Cardiovascular: Yes: WNL, Regular Rate and Rhythm, Murmur (diastolic), S1, S2 Respiratory: Yes: Regular Gastrointestinal: Yes: Soft ...Rectal Exam: Yes: Deferred Genitourinary: No: Anuria Musculoskeletal: Yes: Muscle Weakness Extremities: Yes: Cool Edema: No Peripheral Pulses WNL: No Peripheral Pulses: Left Doralis Pedis: 1+, Right Dorsalis Pedis: 1+ Integumentary: Yes: WNL Neurological: Yes: Alert, Oriented, Weakness Psychiatric: Yes: Alert, Oriented Labs: CBC, BMP 11/04/17 05:30 11/04/17 05:30 INR, PTT INR 1.43 (0.83-1.09) H 10/29/17 05:30 Abnormal Lab Results 11/04/17 11/05/17 11/05/17 05:30 05:30 05:30 RBC 2.53 L Hgb 9.8 L Hct 25.9 L MCV 102.6 H MCH 38.6 H D MCHC 37.7 H Monocytes % (Manual) 13 H D Anion Gap 6 L Random Glucose 119 H Calcium 8.0 L Problem List - Problems (1) History of aortic valve replacement with bioprosthetic valve Assessment/Plan: Pt once again febrile. ECHO noted difficulty assessing bioprosthetic aortic valve; + torn corda; could not r/o tricuspid valve vegetation. F/u cultures; antibiotics per ID. For MERLE 11/04/[address] Ibarra. Addendum: MERLE preliminary results show no vegetation; prosthetic aortic valve normal function with mild AR; no shunt; no mass or thrombu; no "smoke" in JASMIN. Code(s): Z95.3 - PRESENCE OF XENOGENIC HEART VALVE (2) Hematuria Code(s): R31.9 - HEMATURIA, UNSPECIFIED Qualifiers: Hematuria type: gross Qualified Code(s): R31.0 - Gross hematuria (3) Sepsis Assessment/Plan: See MERLE results under "prosthetic valve" Code(s): A41.9 - SEPSIS, UNSPECIFIED ORGANISM Qualifiers: Sepsis type: sepsis due to unspecified organism Qualified Code(s): A41.9 - Sepsis, unspecified organism
--- NOTE | 2017-11-04 12:29 | PN ---
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, Physician History of Present Illness: PULMONARY ALERT,NO DISTRESS,-SOB,+ HICCUPS. ECHO - VEGETATIONS - Current Medication List Current Medications: Active Medications Acetaminophen (Tylenol -) 650 mg PO Q4H PRN PRN Reason: FEVER Last Admin: 11/02/17 11:45 Dose: 650 mg Atenolol (Tenormin -) 100 mg PO DAILY [facility] Last Admin: 11/03/17 10:22 Dose: 100 mg Benzocaine/Menthol (Cepacol Lozenge -) 1 each MM PRN PRN PRN Reason: SORE THROAT Last Admin: 11/03/17 21:51 Dose: 1 each Clonazepam (Klonopin -) 0.25 mg PO BID PRN PRN Reason: ANXIETY Sodium Chloride (Normal Saline -) 1,000 mls @ 100 mls/hr IV ASDIR [facility] Last Admin: 11/03/17 17:36 Dose: 100 mls/hr Ceftriaxone Sodium 2 gm/ (Dextrose) 100 mls @ 200 mls/hr IVPB DAILY [facility]; Protocol Last Admin: 11/04/17 09:08 Dose: 200 mls/hr Vancomycin HCl (Vancomycin 1 Gm Premix -) 1 gm in 200 mls @ 133.333 mls/hr IVPB Q24H [facility]; Protocol Last Admin: 11/04/17 12:04 Dose: 133.333 mls/hr Insulin Aspart (Novolog Vial Sliding Scale -) 1 vial SQ ACHS [facility]; Protocol Last Admin: 11/04/17 12:09 Dose: Not Given Levothyroxine Sodium 100 mcg/ (Levothyroxine Sodium 75 mcg) 175 mcg PO DAILY@ 0700 [facility] Last Admin: 11/04/17 06:11 Dose: Not Given Nystatin (Nystatin Oral Suspension -) 500,000 units PO Q6HPO [facility] Last Admin: 11/04/17 06:10 Dose: Not Given Nystatin (Nystop Powder -) 1 applic TP DAILY [facility] Pantoprazole Sodium (Protonix Iv) 40 mg IVPUSH DAILY [facility] Last Admin: 11/04/17 09:08 Dose: 40 mg Potassium Phos/Sodium Phos (Phos-Nak Packet -) 1 packet PO TID [facility] Last Admin: 11/04/17 06:10 Dose: Not Given Rivaroxaban (Xarelto -) 15 mg PO DAILY@1800 [facility] Last Admin: 11/03/17 17:42 Dose: 15 mg - Objective Vital Signs: Vital Signs Temperature 98.1 F 11/04/17 11:36 Pulse Rate 74 11/04/17 11:36 Respiratory Rate 20 11/04/17 11:36 Blood Pressure 124/76 11/04/17 11:36 O2 Sat by Pulse Oximetry (%) 100 11/04/17 11:36 Constitutional: Yes: Calm, Thin Eyes: Yes: WNL HENT: Yes: WNL Neck: Yes: WNL Cardiovascular: Yes: Pulse Irregular, S1, S2 Respiratory: Yes: Diminished Gastrointestinal: Yes: Normal Bowel Sounds, Soft Extremities: Yes: WNL Edema: No Labs: CBC, BMP 11/04/17 05:30 11/04/17 05:30 INR, PTT INR 1.43 (0.83-1.09) H 10/29/17 05:30 Problem List - Problems (1) Atrial fibrillation Code(s): I48.91 - UNSPECIFIED ATRIAL FIBRILLATION (2) History of aortic valve replacement with bioprosthetic valve Code(s): Z95.3 - PRESENCE OF XENOGENIC HEART VALVE (3) Hypothyroidism Code(s): E03.9 - HYPOTHYROIDISM, UNSPECIFIED (4) Sepsis Code(s): A41.9 - SEPSIS, UNSPECIFIED ORGANISM Qualifiers: Sepsis type: sepsis due to unspecified organism Qualified Code(s): A41.9 - Sepsis, unspecified organism (5) Hiccups Code(s): R06.6 - HICCOUGH (6) Hematuria Code(s): R31.9 - HEMATURIA, UNSPECIFIED Qualifiers: Hematuria type: gross Qualified Code(s): R31.0 - Gross hematuria Assessment/Plan A/P Polymicrobial Bacteremia UTI Hematuria Septic Shock resolved Acute Kidney Injury Lactic Acidosis +Troponins likely Demand Ischemia Atrial Fibrillation HTN Hyperlipidemia Hypothyroidism Hiccups - broad spectrum antibiotics as per ID - rate control - anticoagulation - monitor urine output, creatinine - DVT/GI prophylaxis DR NUGENT
[2017-11-04] MEDS: NYSTATIN POWDER 100,000 UNITS/GM - 15 GM TOPICAL POWDER TP SCH (12:30)
--- NOTE | 2017-11-04 13:29 | PN ---
Physical Exam: SUBJECTIVE: Patient seen and examined at bedside. Fully oriented. Intractable hiccups x 6 days. Otherwise no complaints. OBJECTIVE: Vital Signs Period Temp Pulse Resp BP Sys/Avelar Pulse Ox Last 24 Hr 98.1 F-99.1 F 74-94 16-20 84-143/63-89 96-100 GENERAL: A&Ox3, intractable hiccuping HEAD: NC/AT EYES: PERRLA, EOMI LUNGS: Unable to assess HEART: Irregularly irregular ABDOMEN:soft, tenderness to lower abdominal palpation NEUROLOGIC: L LE 0/5 LUE 3/5 forearm flexion, 0/5 shoulder abduction/adduction, R extremities 5/5 EXTREMITIES: No stigmata of endocarditis. No calf tenderness. Mild non-pitting LLE edema. SKIN: Warm, dry, normal turgor, no rashes or lesions noted. Laboratory Results - last 24 hr 11/03/17 11/03/17 11/03/17 05:30 17:26 21:50 WBC RBC Hgb Hct MCV MCH MCHC RDW Plt Count MPV Absolute Neuts (auto) Neutrophils % Neutrophils % (Manual) 71.7 Band Neutrophils % 3.0 Lymphocytes % Lymphocytes % (Manual) 16.2 D Monocytes % Monocytes % (Manual) 7 Eosinophils % Eosinophils % (Manual) 0.0 Basophils % Basophils % (Manual) 1.0 Myelocytes % (Man) 0 D Promyelocytes % (Man) 0 Blast Cells % (Manual) 0 Nucleated RBC % Metamyelocytes 1 D Hypochromia 0 Platelet Estimate Normal Polychromasia 0 Poikilocytosis 2+ Anisocytosis 1+ Microcytosis 0 Macrocytosis 2+ Sodium Potassium Chloride Carbon Dioxide Anion Gap BUN Creatinine Creat Clearance w eGFR POC Glucometer 124 144 Random Glucose Calcium Phosphorus Magnesium 11/04/17 11/04/17 11/04/17 05:30 05:30 05:41 WBC 5.6 RBC 3.08 L Hgb 9.8 L Hct 29.4 L MCV 95.4 MCH 31.7 D MCHC 33.2 RDW 15.4 Plt Count 248 D MPV 7.9 Absolute Neuts (auto) 3.9 Neutrophils % 69.7 Neutrophils % (Manual) 66.4 Band Neutrophils % 0.9 Lymphocytes % 17.8 Lymphocytes % (Manual) 15.9 Monocytes % 10.3 H Monocytes % (Manual) 13 H D Eosinophils % 1.8 Eosinophils % (Manual) 1.0 D Basophils % 0.4 Basophils % (Manual) 0.0 Myelocytes % (Man) 1 D Promyelocytes % (Man) 0 Blast Cells % (Manual) 0 Nucleated RBC % 0 Metamyelocytes 1 Hypochromia 0 Platelet Estimate Normal Polychromasia 0 Poikilocytosis 0 Anisocytosis 0 Microcytosis 0 Macrocytosis 0 Sodium 141 Potassium 4.2 Chloride 104 Carbon Dioxide 29 Anion Gap 8 BUN 17 Creatinine 0.8 Creat Clearance w eGFR > 60 POC Glucometer 114 Random Glucose 111 H D Calcium 7.8 L Phosphorus 3.2 Magnesium 2.0 11/04/17 12:08 WBC RBC Hgb Hct MCV MCH MCHC RDW Plt Count MPV Absolute Neuts (auto) Neutrophils % Neutrophils % (Manual) Band Neutrophils % Lymphocytes % Lymphocytes % (Manual) Monocytes % Monocytes % (Manual) Eosinophils % Eosinophils % (Manual) Basophils % Basophils % (Manual) Myelocytes % (Man) Promyelocytes % (Man) Blast Cells % (Manual) Nucleated RBC % Metamyelocytes Hypochromia Platelet Estimate Polychromasia Poikilocytosis Anisocytosis Microcytosis Macrocytosis Sodium Potassium Chloride Carbon Dioxide Anion Gap BUN Creatinine Creat Clearance w eGFR POC Glucometer 113 Random Glucose Calcium Phosphorus Magnesium Active Medications Generic Name Dose Route Start Last Admin Trade Name Freq PRN Reason Stop Dose Admin Acetaminophen 650 mg 11/02/17 08:53 11/02/17 11:45 Tylenol - PO 650 mg Q4H PRN Administration FEVER Atenolol 100 mg 10/31/17 10:00 11/03/17 10:22 Tenormin - PO 100 mg DAILY [facility] Administration Benzocaine/Menthol 1 each 11/02/17 06:15 11/03/17 21:51 Cepacol Lozenge - MM 1 each PRN PRN Administration SORE THROAT Clonazepam 0.25 mg 11/03/17 12:48 Klonopin - PO BID PRN ANXIETY Ceftriaxone Sodium 2 gm/ 100 mls @ 200 mls/hr 11/01/17 10:00 11/04/17 09:08 Dextrose IVPB 200 mls/hr DAILY [facility] Administration Protocol Vancomycin HCl 1 gm in 200 mls @ 133.333 mls/hr 11/02/17 10:00 11/04/17 12:04 Vancomycin 1 Gm Premix - IVPB 133.333 mls/hr Q24H [facility] Administration Protocol Insulin Aspart 1 vial 10/30/17 16:30 11/04/17 12:09 Novolog Vial Sliding Scale - SQ Not Given ACHS [facility] Protocol Levothyroxine Sodium 100 mcg/ 175 mcg 10/31/17 07:00 11/04/17 06:11 Levothyroxine Sodium 75 mcg PO Not Given DAILY@0700 [facility] Nystatin 500,000 units 11/02/17 12:15 11/04/17 06:10 Nystatin Oral Suspension - PO Not Given Q6HPO [facility] Nystatin 1 applic 11/04/17 12:30 Nystop Powder - TP DAILY [facility] Pantoprazole Sodium 40 mg 10/31/17 10:00 11/04/17 09:08 Protonix Iv IVPUSH 40 mg DAILY [facility] Administration Potassium Phos/Sodium Phos 1 packet 10/30/17 22:00 11/04/17 06:10 Phos-Nak Packet - PO Not Given TID [facility] Rivaroxaban 15 mg 10/30/17 18:00 11/03/17 17:42 Xarelto - PO 15 mg DAILY@1800 [facility] Administration ASSESSMENT/PLAN: 77 y/o M w/ PMHx HTN, HLD, DM, afib, CVA (2013 on AC) admitted from [facility] for septic shock 2/2 UTI #Cardiac -MERLE: no vegetation, no ruptured chordae, mild-mod TV prolapse -Xarelto increased to home dose 20mg daily -cont Atenolol 100mg -troponemia d/t demand ischemia, now resolved -off pressors, off digoxin -Afib rate controlled #Hiccups -may be 2/2 cardiac irritation of vagus nerve -Protonix 40mg daily -Reglan d/c'd -Klonopin .25 BID PRN -GI consulted (Dr. Roman) for evaluation #LE edema -Duplex to r/o DVT #UTI/Bacteremia -UCx: Proteus -BCx: Proteus and Staph capitis -cdiff negative -Ceftriaxone day 4 -Vancomycin resumed -9th overall day of IV ABx -f/u Dr. 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 Ramos #Hypothyroidism - Levothyroxine 175 mcg po daily #DM - SSI - last A1C 5.6 from September #DVT ppx - Xarelto #FEN - IVF d/c'd - monitor BMP, Mg, Phos, replete as necessary - pureed diet with ensure (chocolate) #Dispo -transferred to med/surg Visit type - Emergency Visit Emergency Visit: No - New Patient This patient is new to me today: No - Critical Care Critical Care patient: No
--- NOTE | 2017-11-04 13:29 | PN ---
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 Returned from [place], not hiccoughing when I saw him! If this continue, trial chopped diet with 1-2 soft items. Missing dentition but reports that he eats solids. Monitor PO tolerance
[2017-11-04] MEDS: ATENOLOL 50 MG TABLET (FP) PO SCH (13:50)
[2017-11-04] MEDS ORDERED: PT OWN MED DRAWER 7, Y5N ONE (15:35)
[2017-11-04] MEDS: BENZOCAINE/MENTH/CETYLPYRD CL 1 EACH LOZENGE MM PRN (15:51)
--- NOTE | 2017-11-04 16:22 | PN ---
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 (short form) - Note 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: GI was called for persistent hiccups. The pt was observed without hiccuping for 15 minutes while soundly asleep. The pt begun having hiccups within 5 min of waking up. Suspect psychologic etiology , anxiety, aerophagia. The hiccups we present prior to the recent MERLE, so do not suspect esophageal trauma. If organic etiology is still strongly suspected, a CT Chest/Abdomen with contrast to r/o diaphragmatic abscess can be obtained. EGD may be indicated. The Thorazine can be tried.
--- NOTE | 2017-11-04 16:43 | PN ---
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, Physician History of Present Illness: Awake , alert Offers no complaints BC SCN, Proteus sp Renal function improved - Current Medication List Current Medications: Active Medications Acetaminophen (Tylenol -) 650 mg PO Q4H PRN PRN Reason: FEVER Last Admin: 11/02/17 11:45 Dose: 650 mg Atenolol (Tenormin -) 100 mg PO DAILY [facility] Last Admin: 11/04/17 13:50 Dose: 100 mg Benzocaine/Menthol (Cepacol Lozenge -) 1 each MM PRN PRN PRN Reason: SORE THROAT Last Admin: 11/04/17 15:51 Dose: 1 each Clonazepam (Klonopin -) 0.25 mg PO BID PRN PRN Reason: ANXIETY Ceftriaxone Sodium 2 gm/ (Dextrose) 100 mls @ 200 mls/hr IVPB DAILY [facility]; Protocol Last Admin: 11/04/17 09:08 Dose: 200 mls/hr Vancomycin HCl (Vancomycin 1 Gm Premix -) 1 gm in 200 mls @ 133.333 mls/hr IVPB Q24H [facility]; Protocol Last Admin: 11/04/17 12:04 Dose: 133.333 mls/hr Insulin Aspart (Novolog Vial Sliding Scale -) 1 vial SQ ACHS [facility]; Protocol Last Admin: 11/04/17 12:09 Dose: Not Given Levothyroxine Sodium 100 mcg/ (Levothyroxine Sodium 75 mcg) 175 mcg PO DAILY@ 0700 [facility] Last Admin: 11/04/17 06:11 Dose: Not Given Nystatin (Nystatin Oral Suspension -) 500,000 units PO Q6HPO [facility] Last Admin: 11/04/17 13:52 Dose: 500,000 units Nystatin (Nystop Powder -) 1 applic TP DAILY [facility] Last Admin: 11/04/17 12:30 Dose: 1 applic Pantoprazole Sodium (Protonix Iv) 40 mg IVPUSH DAILY [facility] Last Admin: 11/04/17 09:08 Dose: 40 mg Potassium Phos/Sodium Phos (Phos-Nak Packet -) 1 packet PO TID [facility] Last Admin: 11/04/17 13:46 Dose: 1 packet Rivaroxaban (Xarelto -) 20 mg PO DAILY@1800 [facility] - Objective Vital Signs: Vital Signs Temperature 97.8 F 11/04/17 14:57 Pulse Rate 88 11/04/17 14:57 Respiratory Rate 20 11/04/17 14:57 Blood Pressure 145/81 11/04/17 14:57 O2 Sat by Pulse Oximetry (%) 100 11/04/17 11:36 Constitutional: Yes: No Distress Eyes: Yes: Conjunctiva Clear Cardiovascular: Yes: Regular Rate and Rhythm, Murmur, S1, S2 Respiratory: Yes: CTA Bilaterally Gastrointestinal: Yes: Normal Bowel Sounds, Soft. No: Tenderness Edema: Yes Labs: CBC, BMP 11/04/17 05:30 11/04/17 05:30 INR, PTT INR 1.43 (0.83-1.09) H 10/29/17 05:30 Assessment/Plan Sepsis/ septic shock resolved UTI/ possible sepsis secondary to UTI Lactic acidosis- resolved azotemia improved S/P AVR Continue ceftriaxone D/C vancomycin
[2017-11-04] MEDS: RIVAROXABAN 20 MG TABLET PO SCH (17:40)
[2017-11-05 06:19] LABS: BASO % 0.7 % (0-2.0); EOS % 2.3 % (0-4.5); HEMATOCRIT 25.9 % (35.4-49); HEMOGLOBIN 9.8 GM/dL (11.7-16.9); LYMPH % 19.5 % (8-40); MCH 38.6 pg (25.7-33.7); MCHC 37.7 g/dl (32.0-35.9); MEAN CELL VOLUME 102.6 fl (80-96); MONO % 9.4 % (3.8-10.2); NEUT % 68.1 % (42.8-82.8); PLATELET COUNT 286 K/MM3 (134-434); RBC 2.53 M/mm3 (4.00-5.60); RDW 15.5 % (11.9-15.9); WHITE BLOOD COUNT 4.5 K/mm3 (4.0-10.0)
[2017-11-05 06:45] LABS: ANION GAP 6 MMOL/L (8-16); BLOOD UREA NITROGEN 18 mg/dL (7-18); CHLORIDE 101 mmol/L (98-107); CO2 32 mmol/L (21-32); CREATININE 0.9 mg/dL (0.7-1.3); GLUCOSE,RANDOM 119 mg/dL (74-106); MAGNESIUM 1.9 mg/dL (1.8-2.4); PHOSPHOROUS 3.7 mg/dL (2.5-4.9); POTASSIUM 4.3 mmol/L (3.5-5.1); SODIUM 139 mmol/L (136-145)
[2017-11-05] MEDS ORDERED: LEVOTHYROXINE NA 75 MCG TABLET (FP) ONE (06:51)
[2017-11-05] MEDS ORDERED: LEVOTHYROXINE NA 100 MCG TABLET (FP) ONE (06:51)
[2017-11-05] MEDS: NAPH,MB-DB/K PH,MBDB POWDER PACKET PO SCH ×2 (06:53→13:16)
[2017-11-05] MEDS: NYSTATIN 500,000 UNITS/5 ML SUSPENSION PO SCH ×4 (06:54→17:09)
[2017-11-05] MEDS: LEVOTHYROXINE 100 MCG, LEVOTHYROXINE 75 MCG PO SCH (06:54)
[2017-11-05] MEDS: INSULIN SLIDING SCALE (NOVOLOG) 1 VIAL SQ SCH ×3 (06:58→17:08)
[2017-11-05 08:18] LABS: PLATELET ESTIMATE ADEQUATE
[2017-11-05] MEDS ORDERED: DEXTROSE 5%-WATER 100 ML IVPB ONE (09:53)
[2017-11-05] MEDS: CEFTRIAXONE 2 GM in DEXTROSE 5%-WATER 100 ML IVPB SCH (10:10)
[2017-11-05] MEDS: PANTOPRAZOLE SODIUM 40 MG VIAL IVPUSH SCH (10:10)
[2017-11-05] MEDS: chlorproMAZINE HCL 25 MG TABLET PO SCH ×2 (10:18→13:17)
--- NOTE | 2017-11-05 11:01 | PN ---
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 (short form) - Note 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: PULMONARY LYING FLAT IN BED OFFERS NO COMPLAINTS OF SOB/CP VSS/AFEBRILE PALE/ANICTERIC B/L CLEAR ANTERIOR S1S2 IRREGULAR BS+ TRACE EDEMA B/L LABS/MEDS/NOTES/IMAGES/MICRO/MERLE REVIEWED A/P Proteus Bacteremia/Bioprosthetic AVR UTI proteus Hematuria Septic Shock resolved Acute Kidney Injury Lactic Acidosis +Troponins likely Demand Ischemia Atrial Fibrillation HTN Hyperlipidemia Hypothyroidism Hiccups - antibiotics as per ID considering bio avr - rate control - anticoagulation/glycemic control - monitor urine output, creatinine - DVT/GI proph R MANUEL CLARK
[2017-11-05] MEDS: ATENOLOL 50 MG TABLET (FP) PO SCH (13:16)
[2017-11-05] MEDS: NYSTATIN POWDER 100,000 UNITS/GM - 15 GM TOPICAL POWDER TP SCH (13:16)
--- NOTE | 2017-11-05 14:35 | PN ---
Teaching Attending Note Name of Resident: Jean Morocho ATTENDING PHYSICIAN STATEMENT I saw and evaluated the patient. I reviewed the resident's note and discussed the case with the resident. I agree with the resident's findings and plan as documented. SUBJECTIVE: no fever or chills cont to have Hiccups OBJECTIVE: NAD CV: irreg irreg, no MRG Lungs: CTAB Ext : non pitting edema on LUE and LLE Abd: soft, NT, ND. Nl BS ASSESSMENT AND PLAN: 77 y/o man with h/o HTN, HLP, DM, CVA, with L sided weakness, hypothyroidism, A fib, CAD s/p VABG, Bioprosthetic AVR , who presneted with hypotension and hematuria and was found to have septic shock and bacteremia with UTI 1- septic shock : resolved 2- proteus UTI 3- Proteus bacteremia: form source 4- + blood cx for staph capitis : ? significance 5- Bioprosthetic AvR . 6- A fib 7- elevated trop 8- Hiccups 9- urinary retention , s/p sarah change this admission Plan : - CT of Chest /abd done . follow results. - d/w ID , can switch to po abx if Ct is neg - try thorazine 25 TID for hiccups - rate controlled. off dig, cont atenolol and xarelto( dose confirmed with [place] , 20 daily ) . can resume dig at dc - urology follow up for sarah and urinary retention possible return to [place] today after CT scan results ( if neg )
--- NOTE | 2017-11-05 14:50 | PN ---
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, Physician History of Present Illness: Awake , alert No complaints BC SCN, Proteus sp Afebrile WBC WNL - Current Medication List Current Medications: Active Medications Acetaminophen (Tylenol -) 650 mg PO Q4H PRN PRN Reason: FEVER Last Admin: 11/02/17 11:45 Dose: 650 mg Atenolol (Tenormin -) 100 mg PO DAILY [facility] Last Admin: 11/05/17 13:16 Dose: 100 mg Benzocaine/Menthol (Cepacol Lozenge -) 1 each MM PRN PRN PRN Reason: SORE THROAT Last Admin: 11/04/17 15:51 Dose: 1 each Chlorpromazine HCl (Thorazine -) 25 mg PO TID [facility] Last Admin: 11/05/17 13:17 Dose: 25 mg Ceftriaxone Sodium 2 gm/ (Dextrose) 100 mls @ 200 mls/hr IVPB DAILY [facility]; Protocol Last Admin: 11/05/17 10:10 Dose: 200 mls/hr Insulin Aspart (Novolog Vial Sliding Scale -) 1 vial SQ ACHS [facility]; Protocol Last Admin: 11/05/17 12:52 Dose: Not Given Levothyroxine Sodium 100 mcg/ (Levothyroxine Sodium 75 mcg) 175 mcg PO DAILY@ 0700 [facility] Last Admin: 11/05/17 06:54 Dose: 175 mcg Nystatin (Nystatin Oral Suspension -) 500,000 units PO Q6HPO [facility] Last Admin: 11/05/17 13:16 Dose: 500,000 units Nystatin (Nystop Powder -) 1 applic TP DAILY [facility] Last Admin: 11/05/17 13:16 Dose: 1 applic Pantoprazole Sodium (Protonix Iv) 40 mg IVPUSH DAILY [facility] Last Admin: 11/05/17 10:10 Dose: 40 mg Potassium Phos/Sodium Phos (Phos-Nak Packet -) 1 packet PO TID [facility] Last Admin: 11/05/17 13:16 Dose: 1 packet Rivaroxaban (Xarelto -) 20 mg PO DAILY@1800 [facility] Last Admin: 11/04/17 17:40 Dose: 20 mg - Objective Vital Signs: Vital Signs Temperature 98.7 F 11/05/17 13:15 Pulse Rate 99 H 11/05/17 13:15 Respiratory Rate 20 11/05/17 13:15 Blood Pressure 139/76 11/05/17 13:15 O2 Sat by Pulse Oximetry (%) 96 11/05/17 09:00 Constitutional: Yes: No Distress Eyes: Yes: Conjunctiva Clear Cardiovascular: Yes: Regular Rate and Rhythm, Murmur, S1, S2 Respiratory: Yes: CTA Bilaterally Gastrointestinal: Yes: Normal Bowel Sounds, Soft. No: Tenderness Edema: No Labs: CBC, BMP 11/05/17 05:30 11/05/17 05:30 INR, PTT INR 1.43 (0.83-1.09) H 10/29/17 05:30 Assessment/Plan Sepsis/ septic shock resolved UTI/ possible sepsis secondary to UTI Lactic acidosis- resolved azotemia improved S/P AVR Day #10 IV antibiotics Substitute po keflex additional 4d
--- NOTE | 2017-11-05 15:20 | PN ---
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, Physician History of Present Illness: Mr. Bains is a 77 you white male w/ pmh of dementia, GERD, HTN, HLD, afib, hypothyroidism, PH, DMII, known UTI on day 12 of 31 day course of macrobid who presents for evaluation of fever to 102.8 despite tylenol 650 and brown/margaret appearing urine. Patient reportedly at baseline per [facility] staff however concern for sepsis prompted transfer to ED. - Current Medication List Current Medications: Active Medications Acetaminophen (Tylenol -) 650 mg PO Q4H PRN PRN Reason: FEVER Last Admin: 11/02/17 11:45 Dose: 650 mg Atenolol (Tenormin -) 100 mg PO DAILY [facility] Last Admin: 11/05/17 13:16 Dose: 100 mg Benzocaine/Menthol (Cepacol Lozenge -) 1 each MM PRN PRN PRN Reason: SORE THROAT Last Admin: 11/04/17 15:51 Dose: 1 each Cephalexin HCl (Keflex -) 500 mg PO Q6HPO [facility] Chlorpromazine HCl (Thorazine -) 25 mg PO TID [facility] Last Admin: 11/05/17 13:17 Dose: 25 mg Insulin Aspart (Novolog Vial Sliding Scale -) 1 vial SQ [facility]; Protocol Last Admin: 11/05/17 12:52 Dose: Not Given Levothyroxine Sodium 100 mcg/ (Levothyroxine Sodium 75 mcg) 175 mcg PO DAILY@ 0700 [facility] Last Admin: 11/05/17 06:54 Dose: 175 mcg Nystatin (Nystatin Oral Suspension -) 500,000 units PO Q6HPO [facility] Last Admin: 11/05/17 13:16 Dose: 500,000 units Nystatin (Nystop Powder -) 1 applic TP DAILY [facility] Last Admin: 11/05/17 13:16 Dose: 1 applic Pantoprazole Sodium (Protonix Iv) 40 mg IVPUSH DAILY [facility] Last Admin: 11/05/17 10:10 Dose: 40 mg Potassium Phos/Sodium Phos (Phos-Nak Packet -) 1 packet PO TID [facility] Last Admin: 11/05/17 13:16 Dose: 1 packet Rivaroxaban (Xarelto -) 20 mg PO DAILY@1800 [facility] Last Admin: 11/04/17 17:40 Dose: 20 mg - Objective Vital Signs: Vital Signs Temperature 98.7 F 11/05/17 13:15 Pulse Rate 99 H 11/05/17 13:15 Respiratory Rate 20 11/05/17 13:15 Blood Pressure 139/76 11/05/17 13:15 O2 Sat by Pulse Oximetry (%) 96 11/05/17 09:00 Eyes: Yes: WNL, Conjunctiva Clear, EOM Intact HENT: Yes: WNL, Atraumatic, Normocephalic Neck: Yes: WNL, Supple, Trachea Midline Cardiovascular: Yes: WNL, Regular Rate and Rhythm Respiratory: Yes: WNL, Regular, CTA Bilaterally Gastrointestinal: Yes: WNL, Normal Bowel Sounds Genitourinary: Yes: WNL Musculoskeletal: Yes: WNL Extremities: Yes: WNL Edema: No Integumentary: Yes: WNL Neurological: Yes: WNL, Alert, Oriented ...Motor Strength: WNL Psychiatric: Yes: WNL Labs: CBC, BMP 11/05/17 05:30 11/05/17 05:30 INR, PTT INR 1.43 (0.83-1.09) H 10/29/17 05:30 Assessment/Plan - Problems (1) History of aortic valve replacement with bioprosthetic valve Assessment/Plan: Pt once again febrile. ECHO noted difficulty assessing bioprosthetic aortic valve; + torn corda; could not r/o tricuspid valve vegetation. F/u cultures; antibiotics per ID. MERLE negative for prosthetic valve IE (2) Hematuria Code(s): R31.9 - HEMATURIA, UNSPECIFIED Qualifiers: Hematuria type: gross Qualified Code(s): R31.0 - Gross hematuria (3) Septic shock Assessment/Plan: On antibiotics. Fluids. F/u cultures. No longer on pressors. Code(s): A41.9 - SEPSIS, UNSPECIFIED ORGANISM; R65.21 - SEVERE SEPSIS WITH SEPTIC SHOCK
--- NOTE | 2017-11-05 16:28 | PN ---
Physical Exam: SUBJECTIVE: Patient seen and examined at bedside. Fully oriented. Intractable hiccups x 6 days. Otherwise no complaints. OBJECTIVE: Vital Signs Period Temp Pulse Resp BP Sys/Avelar Pulse Ox Last 24 Hr 98.7 F-99.2 F 90-99 18-20 132-142/73-88 96-96 GENERAL: A&Ox3, intractable hiccuping HEAD: NC/AT EYES: PERRLA, EOMI LUNGS: Unable to assess HEART: Irregularly irregular ABDOMEN:soft, tenderness to lower abdominal palpation NEUROLOGIC: L LE 0/5 LUE 3/5 forearm flexion, 0/5 shoulder abduction/adduction, R extremities 5/5 EXTREMITIES: No stigmata of endocarditis. No calf tenderness. Mild non-pitting LLE edema. SKIN: Warm, dry, normal turgor, no rashes or lesions noted. Laboratory Results - last 24 hr 11/04/17 11/04/17 11/05/17 16:32 20:59 05:30 WBC 4.5 RBC 2.53 L Hgb 9.8 L Hct 25.9 L MCV 102.6 H MCH 38.6 H D MCHC 37.7 H RDW 15.5 Plt Count 286 MPV 8.0 Absolute Neuts (auto) 3.0 Total Counted 100 Neutrophils % 68.1 Neutrophils % (Manual) 74.0 Band Neutrophils % 1.0 Lymphocytes % 19.5 Lymphocytes % (Manual) 16.0 Monocytes % 9.4 Monocytes % (Manual) 9 Eosinophils % 2.3 Basophils % 0.7 Nucleated RBC % 0 Platelet Estimate Adequate Platelet Comment No clumping noted Sodium Potassium Chloride Carbon Dioxide Anion Gap BUN Creatinine Creat Clearance w eGFR POC Glucometer 182 106 Random Glucose Calcium Phosphorus Magnesium 11/05/17 11/05/17 05:30 06:57 WBC RBC Hgb Hct MCV MCH MCHC RDW Plt Count MPV Absolute Neuts (auto) Total Counted Neutrophils % Neutrophils % (Manual) Band Neutrophils % Lymphocytes % Lymphocytes % (Manual) Monocytes % Monocytes % (Manual) Eosinophils % Basophils % Nucleated RBC % Platelet Estimate Platelet Comment Sodium 139 Potassium 4.3 Chloride 101 Carbon Dioxide 32 Anion Gap 6 L BUN 18 Creatinine 0.9 Creat Clearance w eGFR > 60 POC Glucometer 130 Random Glucose 119 H Calcium 8.0 L Phosphorus 3.7 Magnesium 1.9 Active Medications Generic Name Dose Route Start Last Admin Trade Name Freq PRN Reason Stop Dose Admin Acetaminophen 650 mg 11/02/17 08:53 11/02/17 11:45 Tylenol - PO 650 mg Q4H PRN Administration FEVER Atenolol 100 mg 10/31/17 10:00 11/05/17 13:16 Tenormin - PO 100 mg DAILY [facility] Administration Benzocaine/Menthol 1 each 11/02/17 06:15 11/04/17 15:51 Cepacol Lozenge - MM 1 each PRN PRN Administration SORE THROAT Cephalexin HCl 500 mg 11/05/17 18:00 Keflex - PO Q6HPO [facility]ORGI Chlorpromazine HCl 25 mg 11/05/17 08:00 11/05/17 13:17 Thorazine - PO 25 mg TID [facility] Administration Insulin Aspart 1 vial 10/30/17 16:30 11/05/17 12:52 Novolog Vial Sliding Scale - SQ Not Given ACHS [facility] Protocol Levothyroxine Sodium 100 mcg/ 175 mcg 10/31/17 07:00 11/05/17 06:54 Levothyroxine Sodium 75 mcg PO 175 mcg DAILY@0700 [facility] Administration Nystatin 500,000 units 11/02/17 12:15 11/05/17 13:16 Nystatin Oral Suspension - PO 500,000 units Q6HPO [facility] Administration Nystatin 1 applic 11/04/17 12:30 11/05/17 13:16 Nystop Powder - TP 1 applic DAILY [facility] Administration Pantoprazole Sodium 40 mg 10/31/17 10:00 11/05/17 10:10 Protonix Iv IVPUSH 40 mg DAILY [facility] Administration Potassium Phos/Sodium Phos 1 packet 10/30/17 22:00 11/05/17 13:16 Phos-Nak Packet - PO 1 packet TID [facility] Administration Rivaroxaban 20 mg 11/04/17 18:00 11/04/17 17:40 Xarelto - PO 20 mg DAILY@1800 [facility] Administration MICROBIOLOGY UCx 10/27/17: Proteus BCx 10/27/17: Proteus, S epidermidis, S capitis C Diff Assay 10/27/17: Negative BCx 10/29/17: NG BCx 11/02/17: NGTD IMAGING CXR 10/27/17: "Impression: Previous OHS. Large heart. Congestive changes. Right line in place. No pneumothorax." CT A/P w/o 10/27/17: "IMPRESSION: 1. Right nephrolithiasis with no evidence of hydronephrosis or obstructive uropathy. 2. Thick-walled urinary bladder containing calculi. Air is also noted within the bladder that may be the result of recent instrumentation. 3. Sarah catheter within prostatic urethra. Repositioning recommended. 4. Air within the right common femoral vein of uncertain etiology. 5. Fecal impaction. Please see above discussion." CXR 10/28/17: "again noted is the prominent mediastinum with sternal sutures, clips, right jugular line, congestive changes and questionable atelectasis or infiltrate at the right base. Follow-up recommended." CXR 10/29/17: "Since the prior exam of 10/28/2017, the base changes have diminished. The remainder of the study is unchanged." CXR 10/30/17: "Impression: Right line removed. Slight increase in pulmonary and pleural changes left base. Stable right base findings." AXR 11/03/17: "No evidence of intestinal obstruction, or pneumoperitoneum" LE Duplex 11/03/17: "No DVT is identified involving either leg. Please see above" CT Chest, CT Abd w/ 11/05/17: "No discrete abscess is identified involving the chest or upper abdomen. In comparison to a CT exam of 10/27/2017 interval development of small right-sided and very small left-sided pleural effusions is seen. Development of bilateral flank subcutaneous edema is also noted. Cardiomegaly. Status post median sternotomy with CABG. Left lower chest pleural calcification. 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 In the ED patient was found to have gross hematuria from the saarh. Additionally in uncontrolled Afib. Admitted to the ICU for septic shock 2/2 to presumed UTI. Imaging and microbiology as per above. UCx grew Proteus spp, BCx showed bacteremia with Proteus and possible Staph spp (latter may have been contaminants). Cardiology, pulmonology, ID, and urology were consulted. Hematuria found to be d/t catheter trauma which was replaced. Home Xarelto was held d/t bleeding, atenolol and digoxin held in setting of shock and hypotension. Pt was stabilized on pressors in the ICU. Weened off pressors and transferred to [facility], atenolol and Xarelto resumed, digoxin held pending d/ c. IV ABx course of Vancomycin and Meropenem empirically, then targeted Vancomycin and Ceftriaxone. IV ABx switched to oral Keflex after 10 days. Additionally developed intractable hiccuping. GI was consulted, CT abd/chest w/ ruled out diaphragmatic abscess. Treated with klonopin and reglan but had no relief, switched to Thorazine for d/c. Additionally noted to have macrocytic anemia with normal folate and B12 levels and no h/o liver disease or EtOH abuse , recommended for outpt hematology for evaluation of possible bone marrow disorder. Discharged back to [facility] to resume home medications, complete Keflex QID x 4 days, and one week of Thorazine for control of hiccuping. Outpatient followup referrals with: PCP, Cardiology for optimization , Urology for evaluation of catheterization, GI for investigation of hiccuping, hematology for investigation of bone marrow disorder. ASSESSMENT/PLAN:
[2017-11-05] MEDS ORDERED: PT OWN MED DRAWER 7, Y5N ONE (16:53)
[2017-11-05] MEDS: RIVAROXABAN 20 MG TABLET PO SCH (17:09)
--- NOTE | 2017-11-05 17:18 | DS ---
Physical Exam: SUBJECTIVE: Patient seen and examined at bedside. Fully oriented. Intractable hiccups x 6 days. Otherwise no complaints. OBJECTIVE: Vital Signs Period Temp Pulse Resp BP Sys/Avelar Pulse Ox Last 24 Hr 98.7 F-99.2 F 90-99 18-20 132-142/73-88 96-96 PHYSICAL EXAM GENERAL: A&Ox3, intractable hiccuping HEAD: NC/AT EYES: PERRLA, EOMI LUNGS: Unable to assess HEART: Irregularly irregular ABDOMEN:soft, tenderness to lower abdominal palpation NEUROLOGIC: L LE 0/5 LUE 3/5 forearm flexion, 0/5 shoulder abduction/adduction, R extremities 5/5 EXTREMITIES: No stigmata of endocarditis. No calf tenderness. Mild non-pitting LLE edema. SKIN: Warm, dry, normal turgor, no rashes or lesions noted. LABS Laboratory Results - last 24 hr 11/04/17 11/05/17 11/05/17 20:59 05:30 05:30 WBC 4.5 RBC 2.53 L Hgb 9.8 L Hct 25.9 L MCV 102.6 H MCH 38.6 H D MCHC 37.7 H RDW 15.5 Plt Count 286 MPV 8.0 Absolute Neuts (auto) 3.0 Total Counted 100 Neutrophils % 68.1 Neutrophils % (Manual) 74.0 Band Neutrophils % 1.0 Lymphocytes % 19.5 Lymphocytes % (Manual) 16.0 Monocytes % 9.4 Monocytes % (Manual) 9 Eosinophils % 2.3 Basophils % 0.7 Nucleated RBC % 0 Platelet Estimate Adequate Platelet Comment No clumping noted Sodium 139 Potassium 4.3 Chloride 101 Carbon Dioxide 32 Anion Gap 6 L BUN 18 Creatinine 0.9 Creat Clearance w eGFR > 60 POC Glucometer 106 Random Glucose 119 H Calcium 8.0 L Phosphorus 3.7 Magnesium 1.9 11/05/17 06:57 WBC RBC Hgb Hct MCV MCH MCHC RDW Plt Count MPV Absolute Neuts (auto) Total Counted Neutrophils % Neutrophils % (Manual) Band Neutrophils % Lymphocytes % Lymphocytes % (Manual) Monocytes % Monocytes % (Manual) Eosinophils % Basophils % Nucleated RBC % Platelet Estimate Platelet Comment Sodium Potassium Chloride Carbon Dioxide Anion Gap BUN Creatinine Creat Clearance w eGFR POC Glucometer 130 Random Glucose Calcium Phosphorus Magnesium MICROBIOLOGY UCx 10/27/17: Proteus BCx 10/27/17: Proteus, S epidermidis, S capitis C Diff Assay 10/27/17: Negative BCx 10/29/17: NG BCx 11/02/17: NGTD IMAGING CXR 10/27/17: "Impression: Previous OHS. Large heart. Congestive changes. Right line in place. No pneumothorax." CT A/P w/o 10/27/17: "IMPRESSION: 1. Right nephrolithiasis with no evidence of hydronephrosis or obstructive uropathy. 2. Thick-walled urinary bladder containing calculi. Air is also noted within the bladder that may be the result of recent instrumentation. 3. Sarah catheter within prostatic urethra. Repositioning recommended. 4. Air within the right common femoral vein of uncertain etiology. 5. Fecal impaction. Please see above discussion." CXR 10/28/17: "again noted is the prominent mediastinum with sternal sutures, clips, right jugular line, congestive changes and questionable atelectasis or infiltrate at the right base. Follow-up recommended." CXR 10/29/17: "Since the prior exam of 10/28/2017, the base changes have diminished. The remainder of the study is unchanged." CXR 10/30/17: "Impression: Right line removed. Slight increase in pulmonary and pleural changes left base. Stable right base findings." AXR 11/03/17: "No evidence of intestinal obstruction, or pneumoperitoneum" LE Duplex 11/03/17: "No DVT is identified involving either leg. Please see above" CT Chest, CT Abd w/ 11/05/17: "No discrete abscess is identified involving the chest or upper abdomen. In comparison to a CT exam of 10/27/2017 interval development of small right-sided and very small left-sided pleural effusions is seen. Development of bilateral flank subcutaneous edema is also noted. Cardiomegaly. Status post median sternotomy with CABG. Left lower chest pleural calcification. 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 In the ED patient was found to have gross hematuria from the sarah. Additionally in uncontrolled Afib. Admitted to the ICU for septic shock 2/2 to presumed UTI. Imaging and microbiology as per above. UCx grew Proteus spp, BCx showed bacteremia with Proteus and possible Staph spp (latter may have been contaminants). Cardiology, pulmonology, ID, and urology were consulted. Hematuria found to be d/t catheter trauma which was replaced. Home Xarelto was held d/t bleeding, atenolol and digoxin held in setting of shock and hypotension. Pt was stabilized on pressors in the ICU. Weened off pressors and transferred to [facility], atenolol and Xarelto resumed, digoxin held pending d/ c. IV ABx course of Vancomycin and Meropenem empirically, then targeted Vancomycin and Ceftriaxone. IV ABx switched to oral Keflex after 10 days. Additionally developed intractable hiccuping. GI was consulted, CT abd/chest w/ ruled out diaphragmatic abscess. Treated with klonopin and reglan but had no relief, switched to Thorazine for d/c. Additionally noted to have macrocytic anemia with normal folate and B12 levels and no h/o liver disease or EtOH abuse , recommended for outpt hematology for evaluation of possible bone marrow disorder. Discharged back to [facility] to resume home medications, complete Keflex QID x 4 days, and one week of Thorazine for control of hiccuping. Outpatient followup referrals with: PCP, Cardiology for optimization , Urology for evaluation of catheterization, GI for investigation of hiccuping, hematology for investigation of bone marrow disorder. Date of Discharge: 11/05/17 Minutes to complete discharge: 45 Discharge Summary Reason For Visit: SEPTIC SHOCK Current Active Problems Hematuria (Acute) Hiccups (Acute) Sepsis (Acute) UTI (urinary tract infection) (Acute) Atrial fibrillation (Chronic) CVA (cerebral vascular accident) (Chronic) History of aortic valve replacement with bioprosthetic valve (Chronic) Hypothyroidism (Chronic) Condition: Improved - Instructions Diet, Activity, Other Instructions: You were hospitalized for a severe urinary tract infection which spread to your blood. You required stabilization in the Intensive Care Unit and have been treated with a course of powerful antibiotics. Your cardiac health issues were carefully monitored and adjustments were made to treat your cardiac conditions in the setting of the infection. You were treated by the urologic specialist for trauma involving your urinary catheter that requires outpatient follow up. During your hospitalization, you developed persistent hiccups which were evaluated by the GI specialist and require outpatient follow up. Additionally, an abnormality in your blood counts was discovered during the hospitalization that requires outpatient follow up. Referrals You have been referred for followup evaluation with the following medical providers for one week following discharge: Dr. Tessa Almanza, your primary medical doctor Dr. Brijesh Tilley, cardiology Dr. Olu Fajardo, hematology, for evaluation of your anemia Dr. Reynold Ramos, urology, for blood in urine and urinary retention . and timing of sarah removal Dr. Red Roman, gastroenterology. you migh need an endoscopy to evaluate your hiccups Please make sure to keep these appointments. Medications/medical recommendations Please resume your home medications upon discharge. Please complete your antibiotic regimen with oral medications that will be provided to you for the next four days following your discharge. You are also being provided with a new medication to control your hiccups. If you develop any new burning or pain with urination, difficulty breathing, chest pain, weakness, numbness or changes in sensation, fever, chills, or any other new symptoms, please return to the Emergency Department immediately. FOR [facility] STAFF Please resume medication regimen from prior to admission, including full dose ( 20mg) Xarelto and digoxin. Additionally: -Keflex 500mg PO QID x 4 days. -Thorazine 25mg TID for 1 week only for hiccups. Referrals: Red Roman MD [Staff Physician] - 1 Week Brijesh Tilley MD [Staff Physician] - 1 Week Reynold Ramos MD [Staff Physician] - 1 Week Olu Fajardo MD [Staff Physician] - 1 Week Tessa Almanza MD [Primary Care Provider] - 1 Week Disposition: [facility] FACILITY - Home Medications Comprehensive Discharge Medication List: Ambulatory Orders Atenolol [Tenormin -] 100 mg PO DAILY 10/27/17 Digoxin [Lanoxin -] 0.125 mg PO DAILY 10/27/17 Docusate Sodium [Colace] 300 mg PO HS 10/27/17 Hydrochlorothiazide 12.5 mg PO DAILY 10/27/17 Levothyroxine [Synthroid -] 175 mcg PO DAILY 10/27/17 Metformin HCl [Glucophage] 500 mg PO BID 10/27/17 Nitrofurantoin Macrocrystal [Nitrofurantoin] 100 mg PO DAILY 10/27/17 Nystatin Cream [Mycostatin Cream -] 1 applic TP BID 10/27/17 Ranitidine [Zantac -] 150 mg PO DAILY 10/27/17 Sennosides [Senna] 2 tab PO DAILY 10/27/17 Simvastatin 10 mg PO HS 10/27/17 Tamsulosin HCl [Flomax -] 0.4 mg PO DAILY 10/27/17 Cephalexin Monohydrate [Keflex -] 500 mg PO Q6HPO capsule 11/05/17 Chlorpromazine [Thorazine -] 25 mg PO TID #21 tablet 11/05/17 Rivaroxaban [Xarelto -] 20 mg PO DAILY 11/05/17 This patient is new to me today: No Emergency Visit: No Critical Care patient: No - Discharge Referral Referred to [facility] No
[2017-11-05] MEDS ORDERED: CEPHALEXIN MONOHYDRATE 500 MG CAPSULE (UD) PO SCH (18:00)
[2017-11-05 19:51] VITALS: BP 122/60; PULSE 91; TEMP 98.8
== END 2017-11-05 21:14 | DRG 871 ==
LOC: JER 04:50 → JERBED 08:10 → JICU 09:15 → J4W 10-30 17:11
PROVIDERS: ADMIT Internal Medicine; ATTEND Internal Medicine
PROC: B246ZZ4 Ultrasonography of Right and Left Heart, Transesophageal (ICD-10-PCS; principal; 2017-11-04 10:00)
DX: A41.89 Other specified sepsis (principal); R65.21 Severe sepsis with septic shock; I23.4 Rupture of chordae tendineae as current complication following acute myocardial infarction; N17.9 Acute kidney failure, unspecified; I24.8 Other forms of acute ischemic heart disease; G81.92 Hemiplegia, unspecified affecting left dominant side; E87.2 Acidosis; N39.0 Urinary tract infection, site not specified; E03.9 Hypothyroidism, unspecified; B96.4 Proteus (mirabilis) (morganii) as the cause of diseases classified elsewhere; I10 Essential (primary) hypertension; I48.91 Unspecified atrial fibrillation; E11.9 Type 2 diabetes mellitus without complications; F03.90 Unspecified dementia, unspecified severity, without behavioral disturbance, psychotic disturbance, mood disturbance, and anxiety; K21.9 Gastro-esophageal reflux disease without esophagitis; R33.8 Other retention of urine; N36.8 Other specified disorders of urethra; E78.5 Hyperlipidemia, unspecified; R31.0 Gross hematuria; N20.0 Calculus of kidney; R00.0 Tachycardia, unspecified; D64.9 Anemia, unspecified; I95.9 Hypotension, unspecified; R19.12 Hyperactive bowel sounds; I25.10 Atherosclerotic heart disease of native coronary artery without angina pectoris; R06.6 Hiccough; K59.00 Constipation, unspecified; N40.1 Benign prostatic hyperplasia with lower urinary tract symptoms; Z95.2 Presence of prosthetic heart valve; Z79.01 Long term (current) use of anticoagulants; Z95.1 Presence of aortocoronary bypass graft
CPT/HCPCS: 36415; 36430; 71045-TC-FY; 71260-TC; 74019-TC-FY; 74170-TC; 74176-TC; 80048; 80053; 80061; 80162; 81003; 81015; 82436; 82550; 82553; 82570; 82607; 82746; 82803; 82962; 83605; 83721; 83735; 84100; 84132; 84133; 84300; 84443; 84484; 85025; 85027; 85610; 85730; 86850; 86870; 86900; 86901; 86902; 86922; 87040; 87086; 87186; 87324; 87449; 93005; 93010; 93306-TC; 93312; 93325; 93970-TC; 97162-GP; 99285-25; G0480; J0131; J1644; J7030; P9017; P9038; P9058